=== PATIENT | male | born 1945 | race Caucasian/White ===

== ENCOUNTER 2019-05-05 00:31 | Emergency (ER) | payer MEDICARE, BC, SELFPAY ==
[2019-05-05 00:38] VITALS: BP 147/82; PULSE 78; RESP 18; TEMP 37; O2SAT 98
--- NOTE | 2019-05-05 00:54 | ED.GENADUL_ITS ---
Discharge Plan Disposition Patient Disposition: HOME Condition: Good Discharge Details Chief Complaint: GenMedical Clinical Impression: Encounter for medical screening examination Primary Care Provider: Shawn Blanton ED Provider: Pérez Mejia Discharge Instructions Additional Instructions: At this time your medications are well dosed and appropriate. There appears to be no incorrect medication difference between your old amlodipine and your new amlodipine. If you have any questions or concerns at all do not hesitate to contact me in the emergency department at [phone]. If you notice any worsening of your symptoms, or any new symptoms such as vomiting, diarrhea, fever, chills, shortness of breath, chest pain, numbness, weakness, or fainting , please return immediately to the emergency department for reevaluation. Please follow up with your primary care provider as soon as possible for reassessment and reevaluation. As always, it was a pleasure participating in your medical care today. Referrals: Shawn Blanton [Primary Care Provider] - Medical Decision Making 74-year-old male with a past medical history of hypertension, high cholesterol, previous myocardial infarction presents today for evaluation. Patient states that he woke up this evening and felt the creepy crawly's over his skin. He stated that he often gets like this when the detergent is changed, and his recently did just change the detergent. He denies any rash, chest pain, shortness of breath, fever, chills, numbness, tingling, weakness, vomiting, diarrhea, headache, chest tightness, shortness of breath. He states that his symptoms are completely inconsistent with his previous myocardial infarction. He denies any exertional discomfort or complaints. He states as soon as he woke up and got out of his blankets he felt better. However he states that he is a man that evaluates all of my medications, at which point he went to check his home prescribed and newly filled bottles of amlodipine. He noticed that the last pill that he saved from his old bottle and the current pill that he is from the new bottle were the same in color, but had different writing on them. He thought that this may be a potential problem, and presented today to the ER for further evaluation of this. He has no other complaints at this time and is otherwise asymptomatic. Physical exam is unremarkable, both pills were evaluated by myself, and confirmation with the properties shows that although the pill labeling is different, their sizes are both equivalent, and their contents is identical. Additionally I did get our pharmacy scale out, and weighed both pills and compared 1 to the other, and their weights are identical. At this time I feel the patient symptoms may likely have been from his 's detergent change. With no other evidence of life-threatening etiology or abnormality, no evidence of cardiac problems, respiratory problems, or allergic problems, I feel he can be safely discharged home with reassurance. Discussed red flags which to return. I have extensively reviewed the treatment plan and discharge instructions with the patient and their family. I have addressed all patient concerns at this time. The patient and family was made aware of what symptoms to monitor for that would warrant a return to the emergency department. Discussed the plan with the patient and family, they demonstrate verbal understanding and agreement with our assessment and plan at this time. HPI General Date/Time Provider Initiated Documentation: 05/05/19 00:37 . HPI Narrative: 74-year-old male with a past medical history of hypertension, high cholesterol, previous myocardial infarction presents today for evaluation. Patient states that he woke up this evening and felt the creepy crawly's over his skin. He stated that he often gets like this when the detergent is changed, and his recently did just change the detergent. He denies any rash, chest pain, shortness of breath, fever, chills, numbness, tingling, weakness, vomiting, diarrhea, headache, chest tightness, shortness of breath. He states that his symptoms are completely inconsistent with his previous myocardial infarction. He denies any exertional discomfort or complaints. He states as so on as he woke up and got out of his blankets he felt better. However he states that he is a man that evaluates all of my medications, at which point he went to check his home prescribed and newly filled bottles of amlodipine. He noticed that the last pill that he saved from his old bottle and the current pill that he is from the new bottle were the same in color, but had different writing on t hem. He thought that this may be a potential problem, and presented today to the ER for further evaluation of this. He has no other complaints at this time and is otherwise asymptomatic. General Stated Complaint: GenMedical ESME: 4 Review of Systems All systems reviewed & are unremarkable except as noted in HPI and below PFSH Social History Smoking/Tobacco Use Status: Never Alcohol Intake: never Drug use: Never Substance use type: does not use Do you feel safe at home: Yes Do you feel safe in your relationship?: Yes Exam Narrative Exam Narrative: 1.Const: Well-nourished, Well-developed, appearing stated age 2.Eyes: PERRL, no conjunctival injection, and symmetrical lids. 3.ENT: Atraumatic external nose and ears. Moist MM. Neck: Symmetric, trachea midline, No thyromegaly. 4.CVS: +S1/S2, No murmurs or gallops. Peripheral pulses 2+ and equal in all extremities. Brisk capillary refill in all extremities. 5.RESP: Unlabored respiratory effort. Clear to auscultation bilaterally. No wheezes rales or rhonchi 6.GI: Soft, Nontender/Nondistended, No hepatosplenomegaly. No guarding or rebound. 7.MSK: Normocephalic/Atraumatic, Extremities w/o deformity or ttp No cyanosis or clubbing, Normal movement of all extremities 8.Skin: Warm, Dry. No rashes or lesions. Negative Nikolsky sign. No large vesi cles or bulla. No palpable purpura. No oral lesions. No mucosal lesions. No evidence of severe cellulitis. No evidence of vaccine preventable rash. No evidence of redness, rash, or signs of hives. 9.Neuro: drug safety assistant II-XII grossly intact. Sensation grossly intact, no focal neurologic deficits. 10.Psych: (AAO) x3. Appropriate mood and affect Course Vital Signs Vital signs: Vital Signs Temperature 37.0 C 05/05/19 00:38 Pulse 78 05/05/19 00:38 Respiratory Rate 18 05/05/19 00:38 Blood Pressure 147/82 H 05/05/19 00:38 Pulse Oximetry 98 05/05/19 00:38 Temperature 37.0 C 05/05/19 00:38 Temperature Source Skin 05/05/19 00:38 Pulse 78 05/05/19 00:38 Respiratory Rate 18 05/05/19 00:38 Respiratory Effort Non-Labored 05/05/19 00:46 Blood Pressure 147/82 H 05/05/19 00:38 Blood Pressure Position Sitting 05/05/19 00:38 Pulse Oximetry 98 05/05/19 00:38 Oxygen Delivery Method Room Air 05/05/19 00:38 Oxygen Flow Rate 0 05/05/19 00:38 Pain Level 0 05/05/19 00:38
== END 2019-05-05 01:05 | disposition home or self-care (01) ==
PROVIDERS: Emergency Provider Student in an Organized Health Care Education/Training Program; PCP Internal Medicine
DX: R20.8 Other disturbances of skin sensation (principal); I10 Essential (primary) hypertension
CPT/HCPCS: 99281; 99282

== ENCOUNTER 2020-09-12 00:33 | Emergency (ER) | payer MEDICARE, BC, SELFPAY ==
--- NOTE | 2020-09-12 00:30 | RT.EKG_ITS ---
APPROVED REPORT Exam: Resting ECG Reason for Exam: CARDIAC HX Patient Location: E HR:60 bpm ECG Measurements Heart Rate 60 AXIS NJ 163 P 69 QRSd 103 QRS 10 QT 456 T 25 QTc 455 Conclusion Sinus rhythm, intervals stable, no significant ST elevation or depression. No evidence of STEMI
[2020-09-12 00:38] VITALS: BP 140/77; PULSE 66; RESP 18; TEMP 36.6; O2SAT 99
--- NOTE | 2020-09-12 00:47 | W.ED.GENAD ---
Discharge Plan Disposition Patient Disposition: HOME Condition: Good Discharge Details Clinical Impression: Encounter for medical assessment, Facial tingling Primary Care Provider: Shawn Blanton ED Provider: Pérez Mejia Discharge Instructions Instructions: Paresthesia (ED) Additional Instructions: At this time your exam is inconsistent with a stroke or heart attack. The transient tingling that you experienced may have been from hunger, mild dehydration, or low vitamin D levels. At this time with no signs of stroke or heart attack I do feel it is safe for you to go home. If you notice any worsening of your symptoms, or any new symptoms such as vomiting, diarrhea, fever, chills, shortness of breath, chest pain, numbness, weakness, or fainting , please return immediately to the emergency department for reevaluation. Please follow up with your primary care provider as soon as possible for reassessment and reevaluation. As always, it was a pleasure participating in your medical care today. Referrals: Shawn Blanton [Primary Care Provider] - Medical Decision Making This is a pleasant 75-year-old male with a past medical history of hypertension, previous myocardial infarction in the distant past who presents today for evaluation of a brief episode of left facial tingling. Patient states that his is currently on vacation out to the [place], and he has been alone for the last few days. He notes that he is hypervigilant during these episodes. Earlier this evening he states he had a brief episode of tingling in the left side of his face. He did not notice any other associated symptoms of any other systemic tingling, weakness, headache, chest pain, chest tightness, shortness of breath, syncope, or lightheadedness. He states that he ate some food and this notably improved the symptoms. This evening at about midnight he felt that given his previous history of heart attack it was important to get checked out to make sure that this was not a cardiac equivalent. Currently his symptoms have nearly completely resolved, and he otherwise feels well. He denies any changes to his medications. He denies any exertional dyspnea, exertional chest pain, or other symptoms. No other complaints at this time. No other modifying factors. Physical exam demonstrates no abnormalities. No tender temporal artery. No signs of Jon's palsy. Sensation is intact bilaterally, including light touch. Detailed neurologic exam shows no evidence of neurologic deficit or signs concerning for stroke. EKG was ordered and shows no evidence of significant abnormality, STEMI or heart attack. No hyperacute T waves. Symptoms at this time are clinically inconsistent with stroke or myocardial infarction. As his symptoms resolved with food, I feel that a neurologic etiology is unlikely after exam and clinical assessment. Recommend good hydration at home, continuation of his multivitamin and close follow-up with PCP. Discussed red flags which to return. I have extensively reviewed the treatment plan and discharge instructions with the patient. I have addressed all patient concerns at this time. The patient was made aware of what symptoms to monitor for that would warrant a return to the emergency department. Discussed the plan with the patient, they demonstrate verbal understanding and agreement with our assessment and plan at this time. The documentation in this chart was dictated using [employer] dictation software. Please excuse any dictation errors. EKG 00: 48 Sinus rhythm, intervals stable, no significant ST elevation or depression. No evidence of STEMI. HPI General Date/Time Provider Initiated Documentation: 09/12/20 00:34. HPI Narrative: This is a pleasant 75-year-old male with a past medical history of hypertension, previous myocardial infarction in the distant past who presents today for evaluation of a brief episode of left facial tingling. Patient states that his is currently on vacation out to the [place], and he has been alone for the last few days. He notes that he is hypervigilant during these episodes. Earlier this evening he states he had a brief episode of tingling in the left side of his face. He did not notice any other associated symptoms of any other systemic tingling, weakness, headache, chest pain, chest tightness, shortness of breath, syncope, or lightheadedness. He states that he ate some food and this notably improved the symptoms. This evening at about midnight he felt that given his previous history of heart attack it was important to get checked out to make sure that this was not a cardiac equivalent. Currently his symptoms have nearly completely resolved, and he otherwise feels well. He denies any changes to his medications. He denies any exertional dyspnea, exertional chest pain, or other symptoms. No other complaints at this time. No other modifying factors. General Stated Complaint: GenMedical ESME: 3 Review of Systems All systems reviewed & are unremarkable except as noted in HPI and below [facility] Social History (Reviewed 09/12/20 @ 01:31 by LAURENCE Lozano Smoking/Tobacco Use Status: Never Smoking risk assessment performed?: Yes Alcohol Intake: never Drug use: Never Substance use type: does not use Do you feel safe at home: Yes Do you feel safe in your relationship?: Yes Exam Narrative Exam Narrative: 1.Const: Well-nourished, Well-developed, appearing stated age 2.Eyes: PERRL, no conjunctival injection, and symmetrical lids. 3.ENT: Atraumatic external nose and ears. Moist MM. Neck: Symmetric, trachea midline, No thyromegaly. No palpable tender temporal artery. 4.CVS: +S1/S2, No murmurs or gallops. Peripheral pulses 2+ and equal in all extremities. Brisk capillary refill in all extremities. No carotid bruits 5.RESP: Unlabored respiratory effort. Clear to auscultation bilaterally. No wheezes rales or rhonchi 6.GI: Soft, Nontender/Nondistended, No hepatosplenomegaly. No guarding or rebound. 7.MSK: Normocephalic/Atraumatic, Extremities w/o deformity or ttp No cyanosis or clubbing, Normal movement of all extremities 8.Skin: Warm, Dry. No rashes or lesions. 9.Neuro: medical billing assistant II-XII grossly intact. Sensation grossly intact, no focal neurologic deficits. No facial asymmetry, tongue is midline. All 6 cardinal planes of vision are fully intact. No evidence of rotatory or vertical nystagmus. The patient demonstrated a normal oofatu-snws-xylctm, good dexterity. There was no evidence of dysdiadochokinesia. Patient was able to ambulate without difficulty. There was no wide-based gait. Romberg testing was normal. Ixjn-cf-hich testing was normal. Sensation was intact bilaterally as well as muscle strength bilaterally for all extremities. Patient was able to verbalize butter cup with no slurring, or miss pronunciation. 10.Psych: (AAO) x3. Appropriate mood and affect Course Vital Signs Vital signs: Vital Signs Temperature 36.6 C 09/12/20 00:38 Pulse 66 09/12/20 00:38 Respiratory Rate 18 09/12/20 00:38 Blood Pressure 140/77 09/12/20 00:38 Pulse Oximetry 99 09/12/20 00:38 Temperature 36.6 C 05/12/21 00:38 Temperature Source Temporal Artery Scan 09/12/20 00:38 Pulse 66 09/12/20 00:38 Respiratory Rate 18 09/12/20 00:38 Blood Pressure 140/77 09/12/20 00:38 Blood Pressure Position Sitting 09/12/20 00:38 Pulse Oximetry 99 09/12/20 00:38 Oxygen Delivery Method Room Air 09/12/20 00:38 Oxygen Flow Rate 0 09/12/20 00:38
[2020-09-12 00:52] VITALS: BP 140/77; PULSE 66; RESP 18; TEMP 36.6; O2SAT 99
== END 2020-09-12 00:58 | disposition home or self-care (01) ==
PROVIDERS: Emergency Provider Student in an Organized Health Care Education/Training Program; PCP Internal Medicine
DX: R20.2 Paresthesia of skin (principal)
CPT/HCPCS: 93005; 99283; 93010; 99282

== ENCOUNTER 2022-02-15 15:55 | Inpatient (IN) | payer MEDICARE, BC, SELFPAY ==
--- NOTE | 2022-02-15 15:45 | RT.EKG_ITS ---
APPROVED REPORT Exam: Resting ECG Reason for Exam: chest pain Patient Location: E HR:79 bpm ECG Measurements Heart Rate 79 AXIS NM 157 P 59 QRSd 97 QRS 24 QT 387 T 57 QTc 445 Conclusion Sinus rhythm...normal P axis, V-rate 60- 99 Probable left atrial enlargement...P >50mS, <-0.10mV V1 sinus rhythm, normal axis, normal intervals, non ischemic
[2022-02-15 16:00] VITALS: PULSE 80; RESP 20; TEMP 36.8; O2SAT 96
--- NOTE | 2022-02-15 16:15 | DI.RAD_ITS ---
Exam(s) XR PORTABLE CHEST AP EXAM: XR PORTABLE CHEST AP CLINICAL HISTORY: chest pain TECHNIQUE: 2D digital imaging was performed of the chest. One image was obtained. An AP view was ob tained. COMPARISON: No exams were available for comparison FINDINGS: MEDIASTINUM: Normal. HEART: Normal. PULMONARY VASCULATURE: Normal. LUNGS: Clear. PLEURAL SPACE: No pleural effusion or pneumothorax. BONE:Within normal limits for the patient's age. OTHER FINDINGS:Normal. IMPRESSION: No acute pulmonary findings. DATA REPOSITORY: RADIATION DOSE DELIVERED:
[2022-02-15 16:42] LABS: Abs Immature Grans 0.04 10^3/uL (0.0-0.06); Absolute Basophil Count 0.05 10^3/uL (0.0-0.2); Absolute Eosinophil Count 0.11 10^3/uL (0.0-0.7); Absolute Lymphocyte Count 1.54 10^3/uL (1.2-3.4); Absolute Neutrophil Count 10.31 10^3/uL (1.2-6.7); Basophils % 0.4; Eosinophils % 0.8; HCT 37.8 % (40.0-50.0); HGB 12.7 g/dL (13.5-17.5); Immature Grans % 0.3; Lymphocytes % 11.7; MCH 31.4 pg (27.0-33.0); MCHC 33.6 % (32.0-36.0); MCV 94 fL (80-95); MPV 9.8 fL (8.0-11.0); Monocytes % 8.4; Neutrophils % 78.4; Platelet Count 274 10^3/uL (130-400); RBC 4.04 10^6/uL (4.36-5.78); RDW 12.1 % (11.8-14.1); RDW-SD 42.1 fL; WBC 13.15 10^3/uL (4.4-10.8)
[2022-02-15] MEDS: Acetaminophen 325 MG TAB 650 MG PO (16:56)
[2022-02-15 17:08] LABS: ALT 27 U/L (16-63); AST 27 U/L (15-37); Albumin 4.2 g/dL (3.4-5.0); Alkaline Phosphatase 117 U/L (46-116); Anion Gap 7.1 mmol/L (3-11); BUN 27 mg/dL (7-18); Bilirubin, Total 0.5 mg/dL (0.2-1.0); CO2 29.9 mmol/L (21.0-32.0); CREATININE 1.3 mg/dL (0.70-1.30); Calcium 8.9 mg/dL (8.5-10.1); Chloride 103 mmol/L (98-107); Estimated GFR 57.29 (mL/min/1.73m2); Glucose 182 mg/dL (74-106); Lipase 97 U/L (73-393); Potassium 4.6 mmol/L (3.5-5.1); Sodium 140 mmol/L (136-145); Total Protein 7.6 g/dL (6.4-8.2)
[2022-02-15 17:11] LABS: D-Dimer 437 ng/mlFEU (<500)
[2022-02-15 17:25] VITALS: TEMP 37.9
[2022-02-15 17:28] LABS: Troponin I < 50 ng/L (<or=60)
--- NOTE | 2022-02-15 17:36 | DI.VRAD_ITS ---
PROCEDURE INFORMATION: Exam: XR Chest Exam date and time: 02/15/2022 4:44 PM Age: 76 years old Clinical indication: Other: Chest pain TECHNIQUE: Imaging protocol: Radiologic exam of the chest. Views: 1 view. COMPARISON: No relevant prior studies available. FINDINGS: Lungs: Unremarkable. No consolidation. Pleural spaces: Unremarkable. No pleural effusion. No pneumothorax. Heart/Mediastinum: Unremarkable. No cardiomegaly. 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 IMPRESSION: No acute findings Dictated and Authenticated by: Yazmin Gil MD. Ordering:ELIZA Guallpa MD
--- NOTE | 2022-02-15 17:45 | DI.CT_ITS ---
Exam(s) CT CHEST/ABD/PEL W EXAM: CT CHEST/ABD/PEL W CLINICAL HISTORY: RIGHT chest and upper quad pain, fever TECHNIQUE: Imaging Protocol: Axial computed tomography images with coronal and sagittal reformatted images were created and reviewed CONTRAST MATERIAL: Intravenous: Omnipaque 350 contrast volume:100 mL Oral: No COMPARISON: CR,XR XR PORTABLE CHEST AP from 02/15/2022 FINDINGS: CHEST: Tracheobronchial tree: Patent where visualized. Pulmonary parenchyma: No consolidation or dominant measurable mass. No architectural distortion. Visualized thyroid gland: Unremarkable. Mediastinum and Angelique: No dominant adenopathy or fluid collection. The esophagus is unremarkable. Pleura: No effusion or pneumothorax. Heart: The heart is not dilated. Moderate coronary artery disease is present. No pericardial effusio n. Pulmonary arteries: Pulmonary arteries are inadequately opacified for evaluation of pulmonary emboli. No large central pulmonary embolus is seen. Aorta: Thoracic aorta non-dilated. Lymph nodes: Within normal limits. Soft tissues: Unremarkable. Bones:Within normal limits for the patient's age. ABDOMEN: Liver: Normal density. Multiple hepatic cysts. No suspicious hepatic masses. Portal, Superior Mesenteric, and Splenic Veins: Unremarkable. Gallbladder and Biliary Tract: Cholelithiasis. The common duct measures up to 9 mm. No choledocholi thiasis is identified. Pancreas: Normal density, no abnormal calcifications or inflammatory process. Spleen: Normal. Adrenals: No masses seen. Kidneys: Normal size, contour and axis. No radiodense stones or obstructive uropathy. There are bilat eral renal cysts. The largest is in the left kidney and measures 3.8 x 2.8 cm. There is a 1.4 x 1 c m hypodense cortical lesion in the inferior pole of the right kidney. It does not meet the criteria for simple cyst. Abdominal Aorta: Abdominal portion non-dilated. Atherosclerosis is present. Bowel: No obstruction or bowel wall thickening. Evidence of appendicitis. There is colonic diverticu losis, but no evidence of acute diverticulitis. Peritoneal Cavity: No ascites, collection or mesenteric inflammatory response. No free air. Lymph Nodes: Within normal limits. Bones: Within normal limits for the patient's age. Soft Tissues: There is a left inguinal hernia containing a short segment of unremarkable sigmoid colo n. There is a right inguinal hernia containing a small segment of small bowel. No evidence of bowel incarceration or obstruction. PELVIS: Bladder: Symmetric distention, no gross wall thickening. Reproductive Organs: Unremarkable as visualized. Lymph Nodes: Within normal limits. Bones: Within normal limits. IMPRESSION: 1. Area of decreased attenuation in the right kidney. Differential considerations include right pyel onephritis or right renal mass. Please correlate clinically. An MRI of the right kidney may be obta ined for further evaluation. 2. Cholelithiasis. No CT evidence to suggest acute cholecystitis. Mild dilatation of the common bubba t without evidence of choledocholithiasis. 3. Bilateral bowel containing inguinal hernias. No evidence of obstruction. 4. No acute pulmonary process. RADIATION DOSE DELIVERED: 787.2mGy.cm Total DLP DATA REPOSITORY: All CT scans at this facility are submitted to the National Radiology Data Registry (NRDR) Dose Index Registry (DIR) with the [employer] (ACR). RADIATION OPTIMIZATION: All CT scans at this facility use at least one of these dose optimization te chniques: automated exposure control; mA and/or kV adjustment per patient size (includes targeted exa ms where dose is matched to clinical indication); or iterative reconstruction.
[2022-02-15 18:00] VITALS: TEMP 39.3
[2022-02-15 18:25] LABS: Lactate 0.7 mmol/L (0.6-1.4)
[2022-02-15 18:44] LABS: COVID-19 PCR Negative (Negative); Influenza A PCR Negative (Negative); Influenza B PCR Negative (Negative); RSV PCR Negative (Negative)
[2022-02-15 18:57] LABS: Bilirubin Negative (Negative); Blood Negative (Negative); Clarity Clear (Clear); Glucose Negative (Negative); Ketones Negative (Negative); Leukocyte Esterase Negative (Negative); Nitrite Negative (Negative); Urobilinogen 0.2 EU/dL (Up TO 0.2)
[2022-02-15 19:05] LABS: Bacteria Negative HPF (Negative); Epithelial Cells Negative HPF (Negative); RBC 0-2 HPF (0-2); WBC Negative HPF (0-5)
[2022-02-15 19:06] LABS: C & S Indicated? No; Crystals Negative HPF (Negative); Mucus Negative (Negative)
--- NOTE | 2022-02-15 19:15 | RT.EKG_ITS ---
APPROVED REPORT Exam: Resting ECG Reason for Exam: chest pain Patient Location: E HR:71 bpm ECG Measurements Heart Rate 71 AXIS MS 152 P 40 QRSd 97 QRS 2 QT 411 T 32 QTc 448 Conclusion Sinus rhythm...normal P axis, V-rate 60- 99 Probable left atrial enlargement...P >50mS, <-0.10mV V1 Physiian: no stemi
[2022-02-15] MEDS: Normal Saline 500 ML 1000 ML IV (19:20)
[2022-02-15] MEDS: Normal Saline Flush 10 ML SYR IVP (19:30)
[2022-02-15] MEDS: Omnipaque 350 MG/ML 100 ML BTL IJ (19:31)
[2022-02-15 19:58] LABS: Troponin I < 50 ng/L (<or=60)
--- NOTE | 2022-02-15 20:44 | DI.VRAD_ITS ---
PROCEDURE INFORMATION: Exam: CT Chest With Contrast; Diagnostic Exam date and time: 02/15/2022 7:42 PM Age: 76 years old Clinical indication: Fever and other: Right chest \T\ upper quad pain TECHNIQUE: Imaging protocol: Diagnostic computed tomography of the chest with contrast. 3D rendering (Not supervised by radiologist): MIP and/or 3D reconstructed images were created by the technologist. COMPARISON: XR PORTABLE CHEST AP 02/15/2022 4:44 PM FINDINGS: Lungs: No consolidation. No ground-glass opacity. Pleuroparenchymal scar noted in the right middle lobe. No endobronchial mucus. Pleural spaces: Unremarkable. No pneumothorax. No pleural effusion. Heart: No cardiomegaly. No pericardial effusion. Mild coronary artery calcifications. Lymph nodes: Unremarkable. No enlarged lymph nodes. Vasculature: Unremarkable. No aortic aneurysm. Bones/joints: No compression fractures. Bulky anterior osteophytes noted at T7-T8. Intact sternum. Unremarkable ribs. Soft tissues: Unremarkable. IMPRESSION: No significant pneumonia. No acute abnormalities. PROCEDURE INFORMATION: Exam: CT Abdomen And Pelvis With Contrast Exam date and time: 02/15/2022 7:42 PM Age: 76 years old Clinical indication: Fever and other: Right chest \T\ upper quad pain TECHNIQUE: Imaging protocol: Computed tomography of the abdomen and pelvis with contrast. 3D rendering (Not supervised by radiologist): MIP and/or 3D reconstructed images were created by the technologist. COMPARISON: XR PORTABLE CHEST AP 02/15/2022 4:44 PM FINDINGS: Lungs: Lung bases are clear. Liver: Liver parenchyma is homogeneous. Multiple small cysts are noted in the liver. Gallbladder and bile ducts: A calcified stone is present at the gallbladder neck, 1.7 cm diameter. No inflammatory changes observed around the gallbladder. No biliary ductal dilatation. Pancreas: Unremarkable pancreas. No inflammatory change or fluid collection. Spleen: Normal. No splenomegaly. Adrenal glands: Normal. No mass. Kidneys and ureters: Multiple cysts are present, up to 3.5 cm diameter on the left. Heterogeneous enhancement of the right kidney is noted. Mild right hydronephrosis. Nondilated ureters. Stomach and bowel: Collapsed stomach. Are nondilated small bowel. Negative for inflammatory changes around the colon. Moderate proximal stool. Moderate sigmoid colon diverticulosis. Appendix: No evidence of appendicitis. Intraperitoneal space: Unremarkable. No free air. No significant fluid collection. Vasculature: Mild vascular calcifications. Negative for abdominal aortic aneurysm. Lymph nodes: Unremarkable. No enlarged lymph nodes. Urinary bladder: No abnormalities. Thin starkey. Reproductive: Right scrotal hydrocele partially visualized. Bones/joints: No compression fractures. Multilevel degenerative disc disease and facet arthropathy noted. Severe neural foraminal narrowing noted at the left L4-L5 level. Narrowing and osteophyte formation noted in both hips. Soft tissues: Mild inguinal hernias noted bilaterally. The right inguinal hernia contains loops of small bowel, and the left inguinal hernia contains a segment of the colon. No associated bowel obstruction. No inflammatory changes. IMPRESSION: 1. Right pyelonephritis questioned. Clinical correlation needed. 2. Bilateral inguinal hernias containing bowel. No obstruction. 3. Cholelithiasis, without cholecystitis. Dictated and Authenticated by: Hector Beltrán MD. Ordering:ELIZA Guallpa MD
[2022-02-15] MEDS: cefTRIAXone 2 GM/50 ML BAG IVPB (22:07)
--- NOTE | 2022-02-15 23:35 | W.ED.GENAD ---
Discharge Plan Disposition Patient Disposition: [facility] INPATIENT Discharge Details Clinical Impression: Pyelonephritis, acute, Atypical chest pain Admit Date/Time: 02/16/22 13:40 Admit Provider: Shawn Newell Attending Provider: Shawn Newell Primary Care Provider: Shawn Blanton ED Provider: Saloni Fernandez Discharge Data Discharge Date/Time-TO BE ENTERED AT DEPARTURE: 02/16/22 13:13 Medical Decision Making Patient is alert and oriented, very pleasant Developed rigors and repeat temp was found to be at 102.8 at approximately 1800. He therefore had blood cultures and lactate and CTs of the chest abdomen and pelvis were ordered Chest x-ray does not show evidence of acute abnormality, curiously his right kidney is found to be enhancing and he has mild right hydro There is no obvious stone in his urinalysis actually clear He has leukocytosis Given the mild hydronephrosis with pyelonephritis, he will need admission for observation He was given ceftriaxone 2 g IV He has been stable throughout this encounter Dr. Oleary will admit patient to the hospitalist service Medical Records Medical records reviewed: Yes I reviewed the patient's medical records. Lab Data Lab results reviewed: Yes I reviewed the patient's lab results. HPI General Date/Time Provider Initiated Documentation: 02/15/22 16:12. HPI Narrative: This 76-year-old male presents with report of right chest and thorax pain. He states this pain started approximately 1:00 today. Denies any fever or chills. Denies any nausea or vomiting. Denies any known reprieve pain factors. Denies any abdominal discomfort. Denies any urinary complaints. Or have any known history of coronary artery disease but denies any left-sided pain and states this pain is any consistent with his prior episodes. Denies any diaphoresis. Was at rest when the pain began. Denies pleuritic component. Denies any falls or injuries. Denies any calf pain or swelling, recent flights, surgeries, long travel. Related Data Home Medications Medication Instructions Recorded Confirmed amlodipine 5 mg-benazepril 20 mg 1 cap PO QPM 02/15/22 02/16/22 capsule aspirin 81 mg tablet 81 mg PO DAILY 02/15/22 02/15/22 atorvastatin 40 mg tablet 40 mg PO QPM 02/15/22 02/16/22 metoprolol succinate 25 mg 25 mg PO QPM 02/15/22 02/16/22 tablet,extended release 24 hr pawgttekvdxe-hpvvuwth-mrnhx acid 1 cap PO DAILY 02/15/22 02/15/22 400 mcg-vitamin K 40 mcg capsule nitroglycerin 0.4 mg sublingual 0.4 mg sublingual PER PROTOCOL PRN 02/15/22 02/15/22 tablet Chest Pain General Stated Complaint: Chest Pain ESME: 2 Review of Systems All systems reviewed & are unremarkable except as noted in HPI and below PFSH All Active Problems (Updated 02/16/22 @ 17:18 by RICA Dobbs) Cholelithiasis (Acute) Deafness middle ear (Acute) CAD (coronary artery disease), [place] coronary artery (Chronic) Atypical chest pain (Acute) Pyelonephritis, acute (Acute) Medical History (Updated 02/16/22 @ 17:18 by RICA Dobbs) Cleft lip and cleft palate Encounter for medical assessment Facial tingling Social History Smoking/Tobacco Use Status: Never Smoking risk assessment performed?: Yes Alcohol Intake: never Drug use: Never Substance use type: does not use Do you feel safe at home: Yes Do you feel safe in your relationship?: Yes Exam Const General: cooperative, comfortable and no acute distress Eyes Pupils: PERRL Resp Effort & Inspection: normal respiratory effort Auscultation: clear to auscultation bilaterally Cardio Rate: regular rate Rhythm: regular rhythm GI Inspection: normal to inspection Skin General skin exam: no rashes or lesions noted Neuro General: patient alert and patient oriented x3 Course Vital Signs Vital signs: Vital Signs Temperature 36.8 C 02/15/22 16:00 Pulse 80 02/15/22 16:00 Respiratory Rate 20 02/15/22 16:00 Pulse Oximetry 96 02/15/22 16:00 Temperature 37.9 C H 02/15/22 17:25 Temperature Source Temporal Artery Scan 02/15/22 17:25 Pulse 80 02/15/22 16:00 Respiratory Rate 20 02/15/22 16:00 Respiratory Effort Non-Labored 02/15/22 16:13 Respiratory Depth Normal 02/15/22 16:13 Respiratory Pattern Normal 02/15/22 16:13 Blood Pressure Position Sitting 02/15/22 16:00 Pulse Oximetry 96 02/15/22 16:00 Oxygen Delivery Method Room Air 02/15/22 16:00 Oxygen Flow Rate 0 02/15/22 16:00 Pain Level 3 02/15/22 16:56 Comment 02/15/22 17:25 Lab/Test Results Lab/Test Results: 02/15/22 21:26 Urine - Clean Catch Urine Culture - Pending 02/15/22 18:30 Blood Blood Culture - Pending 02/15/22 18:30 Blood Blood Culture - Pending Laboratory Tests Range/Units 02/15/22 02/15/22 02/15/22 16:09 16:09 16:09 WBC (4.4-10.8) 10^3/uL 13.15 H RBC (4.36-5.78) 10^6/uL 4.04 L Hgb (13.5-17.5) g/dL 12.7 L Hct (40.0-50.0) % 37.8 L MCV (80-95) fL 94 MCH (27.0-33.0) pg 31.4 MCHC (32.0-36.0) % 33.6 RDW (11.8-14.1) % 12.1 Plt Count (130-400) 10^3/uL 274 MPV (8.0-11.0) fL 9.8 Immature Gran % 0.3 Neutrophils % 78.4 Lymphocytes % 11.7 Monocytes % 8.4 Eosinophils % 0.8 Basophils % 0.4 Nucleated RBC % (0.0-0.3) % 0.0 Absolute Neutrophils (1.2-6.7) 10^3/uL 10.31 H Absolute Lymphocytes (1.2-3.4) 10^3/uL 1.54 Absolute Monocytes (0.1-0.8) 10^3/uL 1.10 H Absolute Eosinophils (0.0-0.7) 10^3/uL 0.11 Absolute Basophils (0.0-0.2) 10^3/uL 0.05 D-Dimer (<500) ng/mlFEU 437 VBG Lactate (0.6-1.4) mmol/L Sodium (136-145) mmol/L 140 Potassium (3.5-5.1) mmol/L 4.6 Chloride (98-107) mmol/L 103 Carbon Dioxide (21.0-32.0) mmol/L 29.9 Anion Gap (3-11) mmol/L 7.1 BUN (7-18) mg/dL 27 H Creatinine (0.70-1.30) mg/dL 1.3 Est GFR (CKD-EPI 2020) (mL/min/1.73m2) 57.29 Glucose (74-106) mg/dL 182 H Calcium (8.5-10.1) mg/dL 8.9 Total Bilirubin (0.2-1.0) mg/dL 0.5 AST (15-37) U/L 27 ALT (16-63) U/L 27 Alkaline Phosphatase (46-116) U/L 117 H Troponin I (<or=60) ng/L Total Protein (6.4-8.2) g/dL 7.6 Albumin (3.4-5.0) g/dL 4.2 Lipase (73-393) U/L 97 Urine Color (Yellow) Urine Clarity (Clear) Urine pH (5-8) Ur Specific [place] (1.005-1.025) Urine Protein (Negative) mg/dL Urine Ketones (Negative) mg/dL Urine Blood (Negative) Urine Nitrite (Negative) Urine Bilirubin (Negative) Urine Urobilinogen (Up TO 0.2) EU/dL Ur Leukocyte Esterase (Negative) Urine RBC (0-2) HPF Urine WBC (0-5) HPF Ur Epithelial Cells (Negative) HPF Urine Crystals (Negative) HPF Urine Bacteria (Negative) HPF Urine Mucus (Negative) Ur Culture Indicated? Urine Glucose (Negative) mg/dL COVID-19 Source SARS-CoV-2 (PCR) (Negative) Influenza Type A (PCR) (Negative) Influenza Type B (PCR) (Negative) RSV (PCR) (Negative) Range/Units 02/15/22 02/15/22 02/15/22 17:07 17:25 18:12 WBC (4.4-10.8) 10^3/uL RBC (4.36-5.78) 10^6/uL Hgb (13.5-17.5) g/dL Hct (40.0-50.0) % MCV (80-95) fL MCH (27.0-33.0) pg MCHC (32.0-36.0) % RDW (11.8-14.1) % Plt Count (130-400) 10^3/uL MPV (8.0-11.0) fL Immature Gran % Neutrophils % Lymphocytes % Monocytes % Eosinophils % Basophils % Nucleated RBC % (0.0-0.3) % Absolute Neutrophils (1.2-6.7) 10^3/uL Absolute Lymphocytes (1.2-3.4) 10^3/uL Absolute Monocytes (0.1-0.8) 10^3/uL Absolute Eosinophils (0.0-0.7) 10^3/uL Absolute Basophils (0.0-0.2) 10^3/uL D-Dimer (<500) ng/mlFEU VBG Lactate (0.6-1.4) mmol/L 0.7 Sodium (136-145) mmol/L Potassium (3.5-5.1) mmol/L Chloride (98-107) mmol/L Carbon Dioxide (21.0-32.0) mmol/L Anion Gap (3-11) mmol/L BUN (7-18) mg/dL Creatinine (0.70-1.30) mg/dL Est GFR (CKD-EPI 2020) (mL/min/1.73m2) Glucose (74-106) mg/dL Calcium (8.5-10.1) mg/dL Total Bilirubin (0.2-1.0) mg/dL AST (15-37) U/L ALT (16-63) U/L Alkaline Phosphatase (46-116) U/L Troponin I (<or=60) ng/L < 50 Total Protein (6.4-8.2) g/dL Albumin (3.4-5.0) g/dL Lipase (73-393) U/L Urine Color (Yellow) Urine Clarity (Clear) Urine pH (5-8) Ur Specific [place] (1.005-1.025) Urine Protein (Negative) mg/dL Urine Ketones (Negative) mg/dL Urine Blood (Negative) Urine Nitrite (Negative) Urine Bilirubin (Negative) Urine Urobilinogen (Up TO 0.2) EU/dL Ur Leukocyte Esterase (Negative) Urine RBC (0-2) HPF Urine WBC (0-5) HPF Ur Epithelial Cells (Negative) HPF Urine Crystals (Negative) HPF Urine Bacteria (Negative) HPF Urine Mucus (Negative) Ur Culture Indicated? Urine Glucose (Negative) mg/dL COVID-19 Source Not Applicable SARS-CoV-2 (PCR) (Negative) Negative Influenza Type A (PCR) (Negative) Negative Influenza Type B (PCR) (Negative) Negative RSV (PCR) (Negative) Negative Range/Units 02/15/22 02/15/22 18:50 19:38 WBC (4.4-10.8) 10^3/uL RBC (4.36-5.78) 10^6/uL Hgb (13.5-17.5) g/dL Hct (40.0-50.0) % MCV (80-95) fL MCH (27.0-33.0) pg MCHC (32.0-36.0) % RDW (11.8-14.1) % Plt Count (130-400) 10^3/uL MPV (8.0-11.0) fL Immature Gran % Neutrophils % Lymphocytes % Monocytes % Eosinophils % Basophils % Nucleated RBC % (0.0-0.3) % Absolute Neutrophils (1.2-6.7) 10^3/uL Absolute Lymphocytes (1.2-3.4) 10^3/uL Absolute Monocytes (0.1-0.8) 10^3/uL Absolute Eosinophils (0.0-0.7) 10^3/uL Absolute Basophils (0.0-0.2) 10^3/uL D-Dimer (<500) ng/mlFEU VBG Lactate (0.6-1.4) mmol/L Sodium (136-145) mmol/L Potassium (3.5-5.1) mmol/L Chloride (98-107) mmol/L Carbon Dioxide (21.0-32.0) mmol/L Anion Gap (3-11) mmol/L BUN (7-18) mg/dL Creatinine (0.70-1.30) mg/dL Est GFR (CKD-EPI 2020) (mL/min/1.73m2) Glucose (74-106) mg/dL Calcium (8.5-10.1) mg/dL Total Bilirubin (0.2-1.0) mg/dL AST (15-37) U/L ALT (16-63) U/L Alkaline Phosphatase (46-116) U/L Troponin I (<or=60) ng/L < 50 Total Protein (6.4-8.2) g/dL Albumin (3.4-5.0) g/dL Lipase (73-393) U/L Urine Color (Yellow) Yellow Urine Clarity (Clear) Clear Urine pH (5-8) 7.0 Ur Specific [place] (1.005-1.025) 1.020 Urine Protein (Negative) mg/dL 30 H Urine Ketones (Negative) mg/dL Negative Urine Blood (Negative) Negative Urine Nitrite (Negative) Negative Urine Bilirubin (Negative) Negative Urine Urobilinogen (Up TO 0.2) EU/dL 0.2 Ur Leukocyte Esterase (Negative) Negative Urine RBC (0-2) HPF 0-2 Urine WBC (0-5) HPF Negative Ur Epithelial Cells (Negative) HPF Negative Urine Crystals (Negative) HPF Negative Urine Bacteria (Negative) HPF Negative Urine Mucus (Negative) Negative Ur Culture Indicated? No Urine Glucose (Negative) mg/dL Negative COVID-19 Source SARS-CoV-2 (PCR) (Negative) Influenza Type A (PCR) (Negative) Influenza Type B (PCR) (Negative) RSV (PCR) (Negative)
--- NOTE | 2022-02-15 23:51 | HPE_ITS ---
Date of service: 02/15/22 Time of Service: 23:51 Assessment and Plan Assessment and plan (1) Pyelonephritis, acute: Start date: 02/15/22 Status: Acute Assessment and plan: Patient has fever and elevated white count with right chest and flank discomfort with imaging suggesting pyelonephritis though urinalysis was normal. This may have been hematogenously seeded. There is no stranding but enhancement of the kidney suggesting pyelonephritis. He also has cholelithiasis without evidence of cholecystitis and no physical findings of gallbladder inflammation at this time. Rocephin will be given for pyelonephritis and close monitoring for resolution of symptoms as well as follow-up culture of urine and blood. His chest pain was atypical and not reminiscent of his cardiac history with negative troponin. Patient may need further imaging and evaluation if fever persist and pyelonephritis in question with reimaging a possibility. Patient is a full code. (2) Atypical chest pain: Start date: 02/15/22 Status: Acute Assessment and plan: Negative troponins, EKG and imaging for acute processes. Monitor as we treat pyelonephritis. (3) CAD (coronary artery disease), [place] coronary artery: Status: Chronic Assessment and plan: This problem appears to be stable and patient will continue outpatient medical therapy. Monitor cardiac rhythm with repeat troponins only if symptoms change or evolve. (4) Cholelithiasis: Status: Acute Assessment and plan: This appears to be chronic and not complicating his acute situation. Be aware of gallstones being present in case he does manifest cholecystitis as time passes. Long-term he may need to see surgery for further evaluation if he has recurrent atypical chest pain. HIDA scan and ultrasound would be appropriate as an outpatient for follow-up. History of Present Illness History of Present Illness Chief Complaint: Chest and flank pain on the right with fever Narrative: This is a 76-year-old male patient who presented to the ED with right chest discomfort around 1 in the afternoon of the same day and he sought evaluation with a history of CAD and this pain not being typical for angina or cardiac paul rce. He is busy working around his home and after evaluation in the ED he was found to have a right pyelonephritis with urinalysis essentially normal and also began to develop rigors with a temperature up to almost 103 ?F in the ED. The CT scan also shows slight right hydronephrosis but no obvious occlusion. Patient had leukocytosis and was started on treatment for right pyelonephritis with evaluation of the chest pain being otherwise negative for any life- threatening event such as PE. His cardiac work-up was also negative. The patient denied any right flank pain though some of his right chest discomfort was down over the lower aspect of his right chest. He also had no urinary complaints. As stated his chest pain is not reminiscent of his previous cardiac history and symptoms. He had no GI symptoms. The patient does have a significant history of being hard of hearing status post cleft palate repair and surgery for his hearing. He did work as a walking mailman for years and feels he is generally healthy and his disability is do not restrict his activity now or in the past. Review of Systems Narrative: 13 point review of systems otherwise unrevealing or stable. PFSH All Active Problems (Updated 02/16/22 @ 10:13 by Justen Ruano) Cholelithiasis (Acute) Deafness middle ear (Acute) CAD (coronary artery disease), [place] coronary artery (Chronic) Atypical chest pain (Acute) Pyelonephritis, acute (Acute) Medical History (Updated 02/16/22 @ 10:13 by Justen Ruano) Cleft lip and cleft palate Encounter for medical assessment Facial tingling Social History Smoking/Tobacco Use Status: Never Smoking risk assessment performed?: Yes Alcohol Intake: never Drug use: Never Substance use type: does not use Do you feel safe at home: Yes Do you feel safe in your relationship?: Yes Meds Allergies and Home Medications Home Medications Medication Instructions Recorded Confirmed Type amlodipine 5 mg-benazepril 20 mg 1 cap PO QPM 02/15/22 02/16/22 History capsule aspirin 81 mg tablet 81 mg PO DAILY 02/15/22 02/15/22 History atorvastatin 40 mg tablet 40 mg PO QPM 02/15/22 02/16/22 History metoprolol succinate 25 mg 25 mg PO QPM 02/15/22 02/16/22 History tablet,extended release 24 hr riwnggtrcyav-ihxwonau-dslkf acid 1 cap PO DAILY 02/15/22 02/15/22 History 400 mcg-vitamin K 40 mcg capsule nitroglycerin 0.4 mg sublingual 0.4 mg sublingual PER PROTOCOL PRN 02/15/22 02/15/22 History tablet Chest Pain Results Imaging Imaging Studies: Exam: CT Chest With Contrast; Diagnostic Exam date and time: 02/15/2022 7:42 PM Age: 76 years old Clinical indication: Fever and other: Right chest \T\ upper quad pain TECHNIQUE: Imaging protocol: Diagnostic computed tomography of the chest with contrast. 3D rendering (Not supervised by radiologist): MIP and/or 3D reconstructed images were created by the technologist. COMPARISON: XR PORTABLE CHEST AP 02/15/2022 4:44 PM FINDINGS: Lungs: No consolidation. No ground-glass opacity. Pleuroparenchymal scar noted in the right middle lobe. No endobronchial mucus. Pleural spaces: Unremarkable. No pneumothorax. No pleural effusion. Heart: No cardiomegaly. No pericardial effusion. Mild coronary artery calcifications. Lymph nodes: Unremarkable. No enlarged lymph nodes. Vasculature: Unremarkable. No aortic aneurysm.? Bones/joints: No compression fractures. Bulky anterior osteophytes noted at T7-T8. Intact sternum. Unremarkable ribs. Soft tissues: Unremarkable. IMPRESSION: No significant pneumonia. No acute abnormalities. PROCEDURE INFORMATION: Exam: CT Abdomen And Pelvis With Contrast Exam date and time: 02/15/2022 7:42 PM Age: 76 years old Clinical indication: Fever and other: Right chest \T\ upper quad pain TECHNIQUE: Imaging protocol: Computed tomography of the abdomen and pelvis with contrast. 3D rendering (Not supervised by radiologist): MIP and/or 3D reconstructed images were created by the technologist. COMPARISON: XR PORTABLE CHEST AP 02/15/2022 4:44 PM FINDINGS: Lungs: Lung bases are clear. Liver: Liver parenchyma is homogeneous. Multiple small cysts are noted in the liver. Gallbladder and bile ducts: A calcified stone is present at the gallbladder neck, 1.7 cm diameter. No inflammatory changes observed around the gallbladder. No biliary ductal dilatation. Pancreas: Unremarkable pancreas. No inflammatory change or fluid collection. Spleen: Normal. No splenomegaly. Adrenal glands: Normal. No mass. Kidneys and ureters: Multiple cysts are present, up to 3.5 cm diameter on the left. Heterogeneous enhancement of the right kidney is noted. Mild right hydronephrosis. Nondilated ureters. Stomach and bowel: Collapsed stomach. Are nondilated small bowel. Negative for inflammatory changes around the colon. Moderate proximal stool. Moderate sigmoid colon diverticulosis. Appendix: No evidence of appendicitis. Intraperitoneal space: Unremarkable. No free air. No significant fluid collection. Vasculature: Mild vascular calcifications. Negative for abdominal aortic aneurysm. Lymph nodes: Unremarkable. No enlarged lymph nodes. Urinary bladder: No abnormalities. Thin starkey. Reproductive: Right scrotal hydrocele partially visualized. Bones/joints: No compression fractures. Multilevel degenerative disc disease and facet arthropathy noted. Severe neural foraminal narrowing noted at the left L4-L5 level. Narrowing and osteophyte formation noted in both hips. Soft tissues: Mild inguinal hernias noted bilaterally. The right inguinal hernia contains loops of small bowel, and the left inguinal hernia contains a segment of the colon. No associated bowel obstruction. No inflammatory changes. IMPRESSION: 1. Right pyelonephritis questioned. Clinical correlation needed. 2. Bilateral inguinal hernias containing bowel. No obstruction. 3. Cholelithiasis, without cholecystitis. Labs Result diagrams: 02/15/22 16:09 02/15/22 16:09 Labs: Laboratory Results - last 24 hr 02/15/22 02/15/22 02/15/22 16:09 16:09 16:09 WBC 13.15 H RBC 4.04 L Hgb 12.7 L Hct 37.8 L MCV 94 MCH 31.4 MCHC 33.6 RDW 12.1 Plt Count 274 MPV 9.8 Immature Gran % 0.3 Neutrophils % 78.4 Lymphocytes % 11.7 Monocytes % 8.4 Eosinophils % 0.8 Basophils % 0.4 Nucleated RBC % 0.0 Absolute Neutrophils 10.31 H Absolute Lymphocytes 1.54 Absolute Monocytes 1.10 H Absolute Eosinophils 0.11 Absolute Basophils 0.05 D-Dimer 437 VBG Lactate Sodium 140 Potassium 4.6 Chloride 103 Carbon Dioxide 29.9 Anion Gap 7.1 BUN 27 H Creatinine 1.3 Est GFR (CKD-EPI 2020) 57.29 Glucose 182 H Calcium 8.9 Total Bilirubin 0.5 AST 27 ALT 27 Alkaline Phosphatase 117 H Troponin I Total Protein 7.6 Albumin 4.2 Lipase 97 Urine Color Urine Clarity Urine pH Ur Specific [place] Urine Protein Urine Ketones Urine Blood Urine Nitrite Urine Bilirubin Urine Urobilinogen Ur Leukocyte Esterase Urine RBC Urine WBC Ur Epithelial Cells Urine Crystals Urine Bacteria Urine Mucus Ur Culture Indicated? Urine Glucose COVID-19 Source SARS-CoV-2 (PCR) Influenza Type A (PCR) Influenza Type B (PCR) RSV (PCR) 02/15/22 02/15/22 02/15/22 17:07 17:25 18:12 WBC RBC Hgb Hct MCV MCH MCHC RDW Plt Count MPV Immature Gran % Neutrophils % Lymphocytes % Monocytes % Eosinophils % Basophils % Nucleated RBC % Absolute Neutrophils Absolute Lymphocytes Absolute Monocytes Absolute Eosinophils Absolute Basophils D-Dimer VBG Lactate 0.7 Sodium Potassium Chloride Carbon Dioxide Anion Gap BUN Creatinine Est GFR (CKD-EPI 2020) Glucose Calcium Total Bilirubin AST ALT Alkaline Phosphatase Troponin I < 50 Total Protein Albumin Lipase Urine Color Urine Clarity Urine pH Ur Specific [place] Urine Protein Urine Ketones Urine Blood Urine Nitrite Urine Bilirubin Urine Urobilinogen Ur Leukocyte Esterase Urine RBC Urine WBC Ur Epithelial Cells Urine Crystals Urine Bacteria Urine Mucus Ur Culture Indicated? Urine Glucose COVID-19 Source Not Applicable SARS-CoV-2 (PCR) Negative Influenza Type A (PCR) Negative Influenza Type B (PCR) Negative RSV (PCR) Negative 02/15/22 02/15/22 18:50 19:38 WBC RBC Hgb Hct MCV MCH MCHC RDW Plt Count MPV Immature Gran % Neutrophils % Lymphocytes % Monocytes % Eosinophils % Basophils % Nucleated RBC % Absolute Neutrophils Absolute Lymphocytes Absolute Monocytes Absolute Eosinophils Absolute Basophils D-Dimer VBG Lactate Sodium Potassium Chloride Carbon Dioxide Anion Gap BUN Creatinine Est GFR (CKD-EPI 2020) Glucose Calcium Total Bilirubin AST ALT Alkaline Phosphatase Troponin I < 50 Total Protein Albumin Lipase Urine Color Yellow Urine Clarity Clear Urine pH 7.0 Ur Specific [place] 1.020 Urine Protein 30 H Urine Ketones Negative Urine Blood Negative Urine Nitrite Negative Urine Bilirubin Negative Urine Urobilinogen 0.2 Ur Leukocyte Esterase Negative Urine RBC 0-2 Urine WBC Negative Ur Epithelial Cells Negative Urine Crystals Negative Urine Bacteria Negative Urine Mucus Negative Ur Culture Indicated? No Urine Glucose Negative COVID-19 Source SARS-CoV-2 (PCR) Influenza Type A (PCR) Influenza Type B (PCR) RSV (PCR) Last Vital Signs Temp 39.3 C H 02/15/22 18:00 Pulse 80 02/15/22 16:00 Resp 20 02/15/22 16:00 Pulse Ox 96 02/15/22 16:00
[2022-02-16] VITALS (29 sets, daily range): BP systolic 108–145; BP diastolic 56–77; PULSE 55–77; RESP 14–20; TEMP 36.2–36.6; O2SAT 90–98
[2022-02-16] MEDS: Aspirin 81 MG CHEW PO (08:24)
[2022-02-16] MEDS: Enoxaparin 40 MG/0.4 ML SYR SC (10:00)
[2022-02-16 11:03] LABS: Abs Immature Grans 0.05 10^3/uL (0.0-0.06); Absolute Basophil Count 0.07 10^3/uL (0.0-0.2); Absolute Eosinophil Count 0.08 10^3/uL (0.0-0.7); Absolute Monocyte Count 1.49 10^3/uL (0.1-0.8); Basophils % 0.6; Eosinophils % 0.7; HCT 34.6 % (40.0-50.0); HGB 11.8 g/dL (13.5-17.5); Immature Grans % 0.4; Lymphocytes % 12.4; MCH 31.2 pg (27.0-33.0); MCHC 34.1 % (32.0-36.0); MCV 92 fL (80-95); MPV 9.1 fL (8.0-11.0); Monocytes % 12.3; Neutrophils % 73.6; Platelet Count 223 10^3/uL (130-400); RBC 3.78 10^6/uL (4.36-5.78); RDW 12.3 % (11.8-14.1); RDW-SD 40.9 fL; WBC 12.12 10^3/uL (4.4-10.8)
[2022-02-16 11:06] LABS: Absolute Neutrophil Count 8.92 10^3/uL (1.2-6.7)
[2022-02-16 11:17] LABS: ALT 22 U/L (16-63); AST 19 U/L (15-37); Albumin 3.5 g/dL (3.4-5.0); Alkaline Phosphatase 92 U/L (46-116); Anion Gap 8.2 mmol/L (3-11); BUN 20 mg/dL (7-18); Bilirubin, Total 0.7 mg/dL (0.2-1.0); CO2 26.8 mmol/L (21.0-32.0); CREATININE 1.1 mg/dL (0.70-1.30); Calcium 8.8 mg/dL (8.5-10.1); Chloride 103 mmol/L (98-107); Estimated GFR 70.01 (mL/min/1.73m2); Glucose 116 mg/dL (74-106); Potassium 3.8 mmol/L (3.5-5.1); Sodium 138 mmol/L (136-145); Total Protein 7.2 g/dL (6.4-8.2)
--- NOTE | 2022-02-16 15:57 | PGE_ITS ---
Date of Service Date of service: 02/16/22 Time of Service: 15:58 Assessment and Plan Assessment and plan (1) Pyelonephritis, acute: Start date: 02/15/22 Status: Acute Assessment and plan: Patient has fever and elevated white count with right chest and flank discomfort with imaging suggesting pyelonephritis though urinalysis was normal. This may have been hematogenously seeded. There is no stranding but enhancement of the kidney suggesting pyelonephritis. He also has cholelithiasis without evidence of cholecystitis and no physical findings of gallbladder inflammation at this time. Rocephin will be given for pyelonephritis and close monitoring for resolution of symptoms as well as follow-up culture of urine and blood. His chest pain was atypical and not reminiscent of his cardiac history with negative troponin x 2. Patient may need further imaging and evaluation if fever persist and pyelonephritis in question with reimaging a possibility. Patient is a full code. (2) Atypical chest pain: Start date: 02/15/22 Status: Acute Assessment and plan: Negative troponins, EKG and imaging for acute processes. Monitor as we treat pyelonephritis. (3) CAD (coronary artery disease), [place] coronary artery: Status: Chronic Assessment and plan: This problem appears to be stable and patient will continue outpatient medical therapy. Monitor cardiac rhythm with repeat troponins only if symptoms change or evolve. (4) Cholelithiasis: Status: Acute Assessment and plan: This appears to be chronic and not complicating his acute situation. Be aware of gallstones being present in case he does manifest cholecystitis as time passes. Long-term he may need to see surgery for further evaluation if he has recurrent atypical chest pain. HIDA scan and ultrasound would be appropriate as an outpatient for follow-up. Subjective Subjective Patient reports: no new complaints and feels better; denies still having pain, nausea, vomiting or fever Exam Narrative Exam Narrative: Pleasant. Up from chair and ambulated with steady gait. Const General: cooperative, comfortable and no acute distress Eyes General: appearance normal, both eyes and all related structures Sclera: sclerae normal Resp Effort & Inspection: normal respiratory effort Auscultation: clear to auscultation bilaterally Cardio Rate: regular rate Rhythm: regular rhythm Heart Sounds: S1 normal and S2 normal GI Inspection: normal to inspection Palpation: nontender Skin General skin exam: no rashes or lesions noted Neuro General: patient alert, patient oriented x3 and no focal motor deficits Cranial Nerves: facial strength normal Gait: normal gait Extrem General: no pedal edema and no calf tenderness Psych Appearance: grossly normal Mood: congruent mood Affect: normal affect Objective Last Vital Signs Temp 36.5 C 02/16/22 13:47 Pulse 70 02/16/22 13:47 Resp 18 02/16/22 13:47 BP 145/74 H 02/16/22 13:47 Pulse Ox 98 02/16/22 13:47 Laboratory Results - last 24 hr 02/15/22 02/15/22 02/15/22 16:09 16:09 16:09 WBC 13.15 H RBC 4.04 L Hgb 12.7 L Hct 37.8 L MCV 94 MCH 31.4 MCHC 33.6 RDW 12.1 Plt Count 274 MPV 9.8 Immature Gran % 0.3 Neutrophils % 78.4 Lymphocytes % 11.7 Monocytes % 8.4 Eosinophils % 0.8 Basophils % 0.4 Nucleated RBC % 0.0 Absolute Neutrophils 10.31 H Absolute Lymphocytes 1.54 Absolute Monocytes 1.10 H Absolute Eosinophils 0.11 Absolute Basophils 0.05 D-Dimer 437 VBG Lactate Sodium 140 Potassium 4.6 Chloride 103 Carbon Dioxide 29.9 Anion Gap 7.1 BUN 27 H Creatinine 1.3 Est GFR (CKD-EPI 2020) 57.29 Glucose 182 H Calcium 8.9 Total Bilirubin 0.5 AST 27 ALT 27 Alkaline Phosphatase 117 H Troponin I Total Protein 7.6 Albumin 4.2 Lipase 97 Urine Color Urine Clarity Urine pH Ur Specific [place] Urine Protein Urine Ketones Urine Blood Urine Nitrite Urine Bilirubin Urine Urobilinogen Ur Leukocyte Esterase Urine RBC Urine WBC Ur Epithelial Cells Urine Crystals Urine Bacteria Urine Mucus Ur Culture Indicated? Urine Glucose COVID-19 Source SARS-CoV-2 (PCR) Influenza Type A (PCR) Influenza Type B (PCR) RSV (PCR) 02/15/22 02/15/22 02/15/22 17:07 17:25 18:12 WBC RBC Hgb Hct MCV MCH MCHC RDW Plt Count MPV Immature Gran % Neutrophils % Lymphocytes % Monocytes % Eosinophils % Basophils % Nucleated RBC % Absolute Neutrophils Absolute Lymphocytes Absolute Monocytes Absolute Eosinophils Absolute Basophils D-Dimer VBG Lactate 0.7 Sodium Potassium Chloride Carbon Dioxide Anion Gap BUN Creatinine Est GFR (CKD-EPI 2020) Glucose Calcium Total Bilirubin AST ALT Alkaline Phosphatase Troponin I < 50 Total Protein Albumin Lipase Urine Color Urine Clarity Urine pH Ur Specific [place] Urine Protein Urine Ketones Urine Blood Urine Nitrite Urine Bilirubin Urine Urobilinogen Ur Leukocyte Esterase Urine RBC Urine WBC Ur Epithelial Cells Urine Crystals Urine Bacteria Urine Mucus Ur Culture Indicated? Urine Glucose COVID-19 Source Not Applicable SARS-CoV-2 (PCR) Negative Influenza Type A (PCR) Negative Influenza Type B (PCR) Negative RSV (PCR) Negative 02/15/22 02/15/22 02/16/22 18:50 19:38 11:00 WBC RBC Hgb Hct MCV MCH MCHC RDW Plt Count MPV Immature Gran % Neutrophils % Lymphocytes % Monocytes % Eosinophils % Basophils % Nucleated RBC % Absolute Neutrophils Absolute Lymphocytes Absolute Monocytes Absolute Eosinophils Absolute Basophils D-Dimer VBG Lactate Sodium 138 Potassium 3.8 Chloride 103 Carbon Dioxide 26.8 Anion Gap 8.2 BUN 20 H Creatinine 1.1 Est GFR (CKD-EPI 2020) 70.01 Glucose 116 H Calcium 8.8 Total Bilirubin 0.7 AST 19 ALT 22 Alkaline Phosphatase 92 Troponin I < 50 Total Protein 7.2 Albumin 3.5 Lipase Urine Color Yellow Urine Clarity Clear Urine pH 7.0 Ur Specific [place] 1.020 Urine Protein 30 H Urine Ketones Negative Urine Blood Negative Urine Nitrite Negative Urine Bilirubin Negative Urine Urobilinogen 0.2 Ur Leukocyte Esterase Negative Urine RBC 0-2 Urine WBC Negative Ur Epithelial Cells Negative Urine Crystals Negative Urine Bacteria Negative Urine Mucus Negative Ur Culture Indicated? No Urine Glucose Negative COVID-19 Source SARS-CoV-2 (PCR) Influenza Type A (PCR) Influenza Type B (PCR) RSV (PCR) 02/16/22 11:00 WBC 12.12 H RBC 3.78 L Hgb 11.8 L Hct 34.6 L MCV 92 MCH 31.2 MCHC 34.1 RDW 12.3 Plt Count 223 MPV 9.1 Immature Gran % 0.4 Neutrophils % 73.6 Lymphocytes % 12.4 Monocytes % 12.3 Eosinophils % 0.7 Basophils % 0.6 Nucleated RBC % 0.0 Absolute Neutrophils 8.92 H Absolute Lymphocytes 1.50 Absolute Monocytes 1.49 H Absolute Eosinophils 0.08 Absolute Basophils 0.07 D-Dimer VBG Lactate Sodium Potassium Chloride Carbon Dioxide Anion Gap BUN Creatinine Est GFR (CKD-EPI 2020) Glucose Calcium Total Bilirubin AST ALT Alkaline Phosphatase Troponin I Total Protein Albumin Lipase Urine Color Urine Clarity Urine pH Ur Specific [place] Urine Protein Urine Ketones Urine Blood Urine Nitrite Urine Bilirubin Urine Urobilinogen Ur Leukocyte Esterase Urine RBC Urine WBC Ur Epithelial Cells Urine Crystals Urine Bacteria Urine Mucus Ur Culture Indicated? Urine Glucose COVID-19 Source SARS-CoV-2 (PCR) Influenza Type A (PCR) Influenza Type B (PCR) RSV (PCR)
[2022-02-16] MEDS: Atorvastatin 40 MG TAB PO (19:30)
[2022-02-16] MEDS: Benazepril 10 MG TAB 20 MG PO (19:30)
[2022-02-16] MEDS: Metoprolol CR 25 MG TABCR PO (19:30)
[2022-02-16] MEDS: amLODIPine 5 MG TAB PO (19:30)
[2022-02-16] MEDS: Normal Saline Flush 10 ML SYR IVP (19:31)
[2022-02-16] MEDS: cefTRIAXone 2 GM/50 ML BAG IVPB (19:32)
[2022-02-16] MEDS: Normal Saline 500 ML 30 ML IV (19:32)
[2022-02-17 03:52] VITALS: BP 142/76; PULSE 70; RESP 18; TEMP 36.3; O2SAT 94
[2022-02-17 07:37] LABS: Abs Immature Grans 0.04 10^3/uL (0.0-0.06); Absolute Basophil Count 0.07 10^3/uL (0.0-0.2); Absolute Eosinophil Count 0.15 10^3/uL (0.0-0.7); Absolute Lymphocyte Count 1.16 10^3/uL (1.2-3.4); Absolute Monocyte Count 1.33 10^3/uL (0.1-0.8); Absolute Neutrophil Count 7.74 10^3/uL (1.2-6.7); Basophils % 0.7; Eosinophils % 1.4; HCT 35.6 % (40.0-50.0); HGB 12.1 g/dL (13.5-17.5); Immature Grans % 0.4; Lymphocytes % 11.1; MCH 31.3 pg (27.0-33.0); MCV 92 fL (80-95); MPV 9.7 fL (8.0-11.0); Monocytes % 12.7; Neutrophils % 73.7; Platelet Count 234 10^3/uL (130-400); RBC 3.86 10^6/uL (4.36-5.78); RDW 12.3 % (11.8-14.1); RDW-SD 41.7 fL; WBC 10.49 10^3/uL (4.4-10.8)
[2022-02-17 07:49] VITALS: BP 113/73; PULSE 56; RESP 16; TEMP 36.7; O2SAT 97
[2022-02-17] MEDS: Multivitamin w/Minerals TAB 1 TAB PO (09:13)
[2022-02-17] MEDS: Aspirin 81 MG CHEW PO (09:14)
[2022-02-17] MEDS: Enoxaparin 40 MG/0.4 ML SYR SC (09:14)
--- NOTE | 2022-02-17 09:17 | PDOC.CMIN ---
- If Service Date Differs Date of service: 02/17/22 Time of Service: 09:17 Care Management Initial Assess REASON FOR HOSPITALIZATION:: acute pyelonephritis PAST MEDICAL HISTORY/PAST SURGICAL HISTORY:: All Active Problems (Updated 02/16/22 @ 10:13 by Justen Ruano). Cholelithiasis (Acute). Deafness middle ear (Acute). CAD (coronary artery disease), [place] coronary artery (Chronic). Atypical chest pain (Acute). Pyelonephritis, acute (Acute). Medical History (Updated 02/16/22 @ 10:13 by Justen Ruano). Cleft lip and cleft palate. Encounter for medical assessment. Facial tingling PREVIOUS FUNCTIONAL STATUS/SOCIAL/FAMILY SUPPORTS:: Justen lives in a single family home in [place] with his Ling.The couple does not have any children. Justen explained that they did not until they were in their forties. 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 he is independent at baseline and does not receive any services. CURRENT FUNCTIONAL STATUS:: Justen was preparing for discharge when CM met with him. He was pleasant and engaged easily with CM. Justen denied the need for services and made a point of telling CM about the wonderful care he has received from the nursing staff at [facility]. ADVANCE DIRECTIVES:: none on file Has patient been provided with info about the portal/API?: Yes Did the patient sign up for the portal?: No CODE STATUS:: DNR/DNI INSURANCE COVERAGE / FINANCIAL ISSUES:: Medicare. BS CURRENT HOME/COMMUNITY SERVICES/EQUIPMENT:: none PRIMARY CARE PHYSICIAN:: Shawn Blanton POTENTIAL DISCHARGE NEEDS:: follow up [facility] PCP, urology and plan of care PATIENT/FAMILY EDUCATION NEEDS:: Review of discharge instructions, limitations, follow up plan, activity, Ask Me Three TRANSPORTATION:: via private vehicle with family PLAN:: Justen will be discharged home with no new services. He will follow up with his PCP and plan of care and transport with family.
[2022-02-17 09:19] VITALS: PULSE 59
--- NOTE | 2022-02-17 10:29 | W.PM.DS.N ---
Date of service: 02/17/22 Time of Service: 10:29 DS: Diagnosis Discharge Diagnosis (1) Pyelonephritis, acute: Status: Acute Asessment and Plan: Fever, rigors, elevated WBC count and hypoattenuation of Right kidney on CT scan. Did receive antibiotics and fluids. No further pain or fevers. Will d/c on Levaquin 750mg daily for 5 doses. Given an initial dose prior to discharge. (2) Atypical chest pain: Status: Acute Asessment and Plan: No EKG findings. Troponin negative. Referred pain from pyelonephritis vs referred pain from gall bladder? (3) CAD (coronary artery disease), [place] coronary artery: Status: Chronic Asessment and Plan: Cont ASA, atorvastatin, metoprolol, prn nitro. (4) Cholelithiasis: Status: Acute Asessment and Plan: Watch for RUQ pain. Further Right sided chest pain may also be related to GB; referred pain. Heart healthy diet (low fat). Discharge Plan Disposition Patient Disposition: HOME Condition: Good Discharge Details Reason For Visit: Right Pyelonephritis, cholelithiasis Admit Date/Time: 02/16/22 13:40 Admit Provider: Shawn Newell Attending Provider: Shawn Newell Primary Care Provider: Shawn Blanton Hospital Course Hospital Course: This is a 76-year-old male patient who presented to the ED with right upper chest discomfort around 1 in the afternoon of the same day and he sought evaluation with a history of CAD and this pain not being typical for angina or cardiac source.? He was busy working around his home at the time of the pain. Evaluation in the ED he was found to have area of decreased attenuation in the right kidney on CT; consistent with a likely pyelonephritis. His urinalysis essentially normal. He developed rigors with a temperature up to almost 103 ?F in the ED.? Patient had leukocytosis and was started on treatment for right pyelonephritis with evaluation of the chest pain being otherwise negative for any life-threatening event such as PE.? His cardiac work-up was also negative.? The patient denied any right flank pain though some of his right chest discomfort was down over the lower aspect of his right chest.? He also had no urinary complaints.? As stated his chest pain is not reminiscent of his previous cardiac history and symptoms.? He had no GI symptoms, though CT should cholelithiasis. The patient does have a significant history of being hard of hearing status post cleft palate repair and surgery for his hearing. See Diagnosis PCP follow up in 1-2 weeks. Home Meds and New Rx's Prescriptions: New levofloxacin 750 mg tablet 750 mg PO DAILY Qty: 5 0RF Rx Instructions: First dose on 02/18/22 Continued atorvastatin 40 mg Tablet 40 mg PO QPM amlodipine-benazepril 5-20 mg Capsule 1 cap PO QPM nitroglycerin 0.4 mg Tablet, Sublingual 0.4 mg sublingual PER PROTOCOL PRN (Reason: Chest Pain) aspirin 81 mg Tablet 81 mg PO DAILY metoprolol succinate 25 mg Tablet Extended Release 24 Hr 25 mg PO QPM [id number]-spt-umqpj acid-vit K 400-40 mcg Capsule 1 cap PO DAILY Discharge Instructions Instructions: Kidney Infection (DC) Stand Alone Forms: Nursing Discharge Form Referrals: Unknown,Unknown [STAFF PHYSICIAN] - (Please call your Primary Care Doctor to make an Appointment in the next 2 weeks ) Activity:: Activity as Tolerated Equipment/Supplies:: No Equipment Needed Diet:: Resume usual home diet Discharge Orders Discharge Orders: Discharge Order (Routine); Ordered 02/17/22 Ordered By: Shawn Newell Discharge Data Discharge Date/Time-TO BE ENTERED AT DEPARTURE: 02/17/22 14:35 DS: Summary Time Spent with Patient providing and/or coordinating discharge services: Greater than 30 minutes Status at Discharge Functional status at discharge: independent ambulation Overall status at discharge: patient is back to baseline Mental Status: mental status grossly normal Speech and Movement: speech and movement normal Mood: congruent mood Affect: normal affect Exam Narrative Exam Narrative: Pleasant. Sitting in recliner. Denies current CP/abd pain. Const General: cooperative, comfortable and no acute distress Eyes General: appearance normal, both eyes and all related structures Sclera: sclerae normal Resp Effort & Inspection: normal respiratory effort Auscultation: clear to auscultation bilaterally Cardio Rate: regular rate Rhythm: regular rhythm Heart Sounds: S1 normal and S2 normal GI Inspection: normal to inspection Palpation: nontender Skin General skin exam: no rashes or lesions noted Neuro General: patient alert, patient oriented x3 and no focal motor deficits Cranial Nerves: facial strength normal Gait: normal gait Extrem General: no pedal edema and no calf tenderness Psych Appearance: grossly normal Mental Status: mental status grossly normal Speech and Movement: speech and movement normal Mood: congruent mood Affect: normal affect DS: Data Vitals/I&O Vitals and I&O: Vital Signs Temperature 36.7 C 02/17/22 07:49 Temperature Source Tympanic 02/17/22 07:49 Pulse 59 L 02/17/22 09:19 Pulse Rhythm Regular 02/17/22 04:20 Pulse 73 02/16/22 06:31 Respiratory Rate 16 02/17/22 07:49 Respiratory Effort Non-Labored 02/17/22 04:20 Respiratory Depth Normal 02/17/22 04:20 Respiratory Pattern Normal 02/17/22 04:20 Blood Pressure 113/73 02/17/22 07:49 Blood Pressure Mean 79 02/16/22 07:01 Blood Pressure Position Sitting 02/15/22 16:00 Pulse Oximetry 97 02/17/22 07:49 Oxygen Delivery Method Room Air 02/17/22 07:49 Oxygen Flow Rate 0 02/17/22 07:49 Pain Level 0 02/17/22 07:49 Comment 02/15/22 17:25 Intake & Output 02/16/22 02/16/22 02/17/22 11:59 23:59 11:59 Intake Total 334 / 334 Output Total 1350 / 1350 1600 / 1600 Balance -1016 / -1016 -1600 / -1600 Weight 65.771 kg 68 kg Intake: IV 94 / 94 Oral 240 / 240 Output: Urine 1350 / 1350 1600 / 1600 Other: Urine Color Pale Straw Urine Appearance Clear Clear Urine Odor None None Comment pt reports he voided, but hat was not in the toilet. Voiding Methods Toilet Toilet Data Completed and Pending Labs on day of discharge: Labs from last 24 hours 02/17/22 02/16/22 02/16/22 06:48 11:00 11:00 WBC 10.49 12.12 H RBC 3.86 L 3.78 L Hgb 12.1 L 11.8 L Hct 35.6 L 34.6 L MCV 92 92 MCH 31.3 31.2 MCHC 34.0 34.1 RDW 12.3 12.3 Plt Count 234 223 MPV 9.7 9.1 Immature Gran % 0.4 0.4 Neutrophils % 73.7 73.6 Lymphocytes % 11.1 12.4 Monocytes % 12.7 12.3 Eosinophils % 1.4 0.7 Basophils % 0.7 0.6 Nucleated RBC % 0.0 0.0 Absolute Neutrophils 7.74 H 8.92 H Absolute Lymphocytes 1.16 L 1.50 Absolute Monocytes 1.33 H 1.49 H Absolute Eosinophils 0.15 0.08 Absolute Basophils 0.07 0.07 Sodium 138 Potassium 3.8 Chloride 103 Carbon Dioxide 26.8 Anion Gap 8.2 BUN 20 H Creatinine 1.1 Est GFR (CKD-EPI 2020) 70.01 Glucose 116 H Calcium 8.8 Total Bilirubin 0.7 AST 19 ALT 22 Alkaline Phosphatase 92 Total Protein 7.2 Albumin 3.5 Preliminary micro results at discharge 02/15/22 21:26 Urine Culture - Preliminary Urine - Clean Catch Gram Positive Carmen,Mixed 02/15/22 18:30 Blood Culture - Preliminary Blood NO GROWTH 24 HOURS 02/15/22 18:30 Blood Culture - Preliminary Blood NO GROWTH 24 HOURS PFSH All Active Problems Cholelithiasis (Acute) Deafness middle ear (Acute) CAD (coronary artery disease), [place] coronary artery (Chronic) Atypical chest pain (Acute) Pyelonephritis, acute (Acute) Medical History Cleft lip and cleft palate Encounter for medical assessment Facial tingling Social History Smoking/Tobacco Use Status: Never Smoking risk assessment performed?: Yes Alcohol Intake: never Drug use: Never Substance use type: does not use Do you feel safe at home: Yes Do you feel safe in your relationship?: Yes
[2022-02-17 11:23] VITALS: BP 105/63; PULSE 63; RESP 17; TEMP 36.2; O2SAT 96
[2022-02-17] MEDS: levoFLOXacin 500 MG, levoFLOXacin 250 MG 750 MG PO (11:34)
--- NOTE | 2022-02-17 17:55 | PDOC.CMDIS ---
- If Service Date Differs Date of service: 02/17/22 Time of Service: 17:55 LACE Index Scoring Tool - Questions: Length of Stay (in days): 1 Acuity (Admit via E.D.?): Yes E.D. Visits: 1 - Answers: Total Score: 5 Risk of Readmission: Low Risk Care Management Discharge Reason for Hospitalization: acute pyelonephritis Discharge Plan: Justen will be discharged home with no new services. He will follow up with his PCP and plan of care and transport with family. Patient/Family Education Needs: Review of discharge instructions, limitations, follow up plan, activity, Ask Me Three
== END 2022-02-17 14:35 | disposition home or self-care (01) | DRG 690 ==
LOC: ER 02-16 00:16 → MS 02-16 13:41
PROVIDERS: Family Medicine; Admitting Provider Family Medicine; Emergency Provider Physician Assistant; PCP Internal Medicine; Visit Provider Family Medicine
DX: N13.6 Pyonephrosis (principal); R07.89 Other chest pain; K80.20 Calculus of gallbladder without cholecystitis without obstruction; I25.10 Atherosclerotic heart disease of native coronary artery without angina pectoris
CPT/HCPCS: 36415; 74177; 80053; 83690; 87040; 87637; 90662; 93005; 96361; 96365; 99284; 99285; J1650; 71045; 71260; 81003; 81015; 83605; 84484; 85025; 85379; 87086; 93010; 99223; 99232; 99239; J3490

== ENCOUNTER 2023-06-16 10:35 | Outpatient (CLI) | payer MEDICARE, BC, SELFPAY ==
[2023-06-16 08:11] LABS: Abs Immature Grans 0.03 10^3/uL (0.0-0.06); Absolute Basophil Count 0.07 10^3/uL (0.0-0.2); Absolute Eosinophil Count 0.14 10^3/uL (0.0-0.7); Absolute Lymphocyte Count 0.99 10^3/uL (1.2-3.4); Absolute Monocyte Count 0.81 10^3/uL (0.1-0.8); Absolute Neutrophil Count 7.77 10^3/uL (1.2-6.7); Basophils % 0.7; Eosinophils % 1.4; HCT 29.6 % (40.0-50.0); HGB 9.5 g/dL (13.5-17.5); Immature Grans % 0.3; Lymphocytes % 10.1; MCH 29.9 pg (27.0-33.0); MCHC 32.1 % (32.0-36.0); MCV 93 fL (80-95); MPV 8.9 fL (8.0-11.0); Monocytes % 8.3; Neutrophils % 79.2; Platelet Count 337 10^3/uL (130-400); RBC 3.18 10^6/uL (4.36-5.78); RDW 13.7 % (11.8-14.1); RDW-SD 47.1 fL; WBC 9.81 10^3/uL (4.4-10.8)
[2023-06-16 08:35] LABS: ALT 56 U/L (16-63); AST 39 U/L (15-37); Alkaline Phosphatase 233 U/L (46-116); Anion Gap 10.3 mmol/L (3-11); BUN 26 mg/dL (7-18); Bilirubin, Total 0.4 mg/dL (0.2-1.0); CO2 26.7 mmol/L (21.0-32.0); CREATININE 1.8 mg/dL (0.70-1.30); Calcium 9.2 mg/dL (8.5-10.1); Chloride 100 mmol/L (98-107); Estimated GFR 38.29 (mL/min/1.73m2); FREE T4 1.15 ng/dL (0.76-1.46); Glucose 174 mg/dL (74-106); Potassium 3.5 mmol/L (3.5-5.1); Sodium 137 mmol/L (136-145); TSH 4.83 uIU/mL (0.36-3.74); Total Protein 7.2 g/dL (6.4-8.2)
== END 2023-06-16 10:36 | disposition home or self-care (01) ==
LOC: LBO 10:35
PROVIDERS: Visit Provider Internal Medicine
DX: R94.6 Abnormal results of thyroid function studies (principal); C79.10 Secondary malignant neoplasm of unspecified urinary organs
CPT/HCPCS: 36415; 80053; 84439; 84443; 85025

== ENCOUNTER 2023-07-01 09:00 | Outpatient (RCR) | payer MEDICARE, BC, SELFPAY ==
[2023-06-23 09:46] LABS: Abs Immature Grans 0.03 10^3/uL (0.0-0.06); Absolute Basophil Count 0.04 10^3/uL (0.0-0.2); Absolute Lymphocyte Count 0.92 10^3/uL (1.2-3.4); Absolute Monocyte Count 1.08 10^3/uL (0.1-0.8); Absolute Neutrophil Count 6.28 10^3/uL (1.2-6.7); Basophils % 0.5; Eosinophils % 1.2; HCT 26.1 % (40.0-50.0); HGB 8.5 g/dL (13.5-17.5); Immature Grans % 0.4; Lymphocytes % 10.9; MCH 30.6 pg (27.0-33.0); MCHC 32.6 % (32.0-36.0); MCV 94 fL (80-95); MPV 9.7 fL (8.0-11.0); Monocytes % 12.8; Neutrophils % 74.2; Platelet Count 359 10^3/uL (130-400); RBC 2.78 10^6/uL (4.36-5.78); RDW 13.7 % (11.8-14.1); RDW-SD 47.3 fL; WBC 8.45 10^3/uL (4.4-10.8)
[2023-06-23 10:04] LABS: Diff Comment Diff Reviewed; Hypochromasia 2+
[2023-06-23 10:11] LABS: ALT 78 U/L (16-63); AST 70 U/L (15-37); Albumin 2.8 g/dL (3.4-5.0); Alkaline Phosphatase 322 U/L (46-116); Anion Gap 8.7 mmol/L (3-11); BUN 30 mg/dL (7-18); Bilirubin, Total 0.4 mg/dL (0.2-1.0); CO2 27.3 mmol/L (21.0-32.0); CREATININE 1.6 mg/dL (0.70-1.30); Calcium 8.8 mg/dL (8.5-10.1); Chloride 103 mmol/L (98-107); Glucose 105 mg/dL (74-106); Potassium 4.1 mmol/L (3.5-5.1); Sodium 139 mmol/L (136-145); Total Protein 6.8 g/dL (6.4-8.2)
[2023-06-23 10:30] LABS: TSH 4.13 uIU/mL (0.36-3.74)
[2023-06-23] MEDS: Normal Saline Flush 10 ML SYR IVP (14:39)
[2023-07-01] MEDS: Normal Saline Flush 10 ML SYR IVP (09:01)
[2023-07-01 09:23] LABS: Abs Immature Grans 0.07 10^3/uL (0.0-0.06); Absolute Basophil Count 0.06 10^3/uL (0.0-0.2); Absolute Eosinophil Count 0.15 10^3/uL (0.0-0.7); Absolute Lymphocyte Count 1.06 10^3/uL (1.2-3.4); Absolute Monocyte Count 0.92 10^3/uL (0.1-0.8); Absolute Neutrophil Count 6.91 10^3/uL (1.2-6.7); Basophils % 0.7; Eosinophils % 1.6; HCT 26.2 % (40.0-50.0); HGB 8.5 g/dL (13.5-17.5); Immature Grans % 0.8; Lymphocytes % 11.6; MCH 30.2 pg (27.0-33.0); MCHC 32.4 % (32.0-36.0); MCV 93 fL (80-95); MPV 9.3 fL (8.0-11.0); Neutrophils % 75.3; Platelet Count 363 10^3/uL (130-400); RBC 2.81 10^6/uL (4.36-5.78); RDW 14.1 % (11.8-14.1); RDW-SD 47.8 fL; WBC 9.17 10^3/uL (4.4-10.8)
[2023-07-01 09:52] LABS: ALT 50 U/L (16-63); AST 38 U/L (15-37); Albumin 2.7 g/dL (3.4-5.0); Alkaline Phosphatase 198 U/L (46-116); Anion Gap 10.5 mmol/L (3-11); BUN 20 mg/dL (7-18); Bilirubin, Total 0.4 mg/dL (0.2-1.0); CO2 26.5 mmol/L (21.0-32.0); CREATININE 1.6 mg/dL (0.70-1.30); Calcium 8.7 mg/dL (8.5-10.1); Chloride 101 mmol/L (98-107); FREE T4 1.07 ng/dL (0.76-1.46); Glucose 167 mg/dL (74-106); Potassium 3.7 mmol/L (3.5-5.1); Sodium 138 mmol/L (136-145); TSH 4.19 uIU/Ml (0.36-3.74); Total Protein 6.7 g/dL (6.4-8.2)
== END 2023-07-02 23:59 | disposition home or self-care (01) ==
LOC: INF 09:00
PROVIDERS: Visit Provider Internal Medicine
DX: C79.10 Secondary malignant neoplasm of unspecified urinary organs (principal); R94.6 Abnormal results of thyroid function studies; Z45.2 Encounter for adjustment and management of vascular access device
CPT/HCPCS: 36591; 80053; 84439; 84443; 85025

== ENCOUNTER 2023-07-28 04:27 | Outpatient (RCR) | payer MEDICARE, BC, SELFPAY ==
[2023-07-07] MEDS: Normal Saline Flush 10 ML SYR IVP (08:11)
[2023-07-07 08:13] LABS: Abs Immature Grans 0.04 10^3/uL (0.0-0.06); Absolute Basophil Count 0.06 10^3/uL (0.0-0.2); Absolute Eosinophil Count 0.16 10^3/uL (0.0-0.7); Absolute Monocyte Count 0.91 10^3/uL (0.1-0.8); Absolute Neutrophil Count 6.31 10^3/uL (1.2-6.7); Basophils % 0.7; Eosinophils % 1.9; HCT 25.5 % (40.0-50.0); HGB 8.1 g/dL (13.5-17.5); Immature Grans % 0.5; Lymphocytes % 12.8; MCH 29.9 pg (27.0-33.0); MCHC 31.8 % (32.0-36.0); MCV 94 fL (80-95); MPV 9.1 fL (8.0-11.0); Monocytes % 10.6; Neutrophils % 73.5; Platelet Count 340 10^3/uL (130-400); RBC 2.71 10^6/uL (4.36-5.78); RDW 14.1 % (11.8-14.1); RDW-SD 47.5 fL; WBC 8.58 10^3/uL (4.4-10.8)
[2023-07-07 08:25] LABS: Diff Comment Diff Reviewed; Hypochromasia 2+
[2023-07-07 08:37] LABS: ALT 40 U/L (16-63); AST 35 U/L (15-37); Albumin 2.7 g/dL (3.4-5.0); Alkaline Phosphatase 157 U/L (46-116); Anion Gap 6.9 mmol/L (3-11); BUN 24 mg/dL (7-18); Bilirubin, Total 0.3 mg/dL (0.2-1.0); CO2 28.1 mmol/L (21.0-32.0); CREATININE 1.7 mg/dL (0.70-1.30); Calcium 8.4 mg/dL (8.5-10.1); Chloride 102 mmol/L (98-107); Estimated GFR 41.01 (mL/min/1.73m2); FREE T4 0.98 ng/dL (0.76-1.46); Glucose 159 mg/dL (74-106); Potassium 3.9 mmol/L (3.5-5.1); Sodium 137 mmol/L (136-145); TSH 4.03 uIU/Ml (0.36-3.74); Total Protein 6.5 g/dL (6.4-8.2)
[2023-07-07 10:53] LABS: Reticulocyte 1.5 % (0.5-2.4)
[2023-07-07 11:30] LABS: Ferritin 60 ng/mL (26-388); Folate > 20.0 ng/mL (8.6-20.0); Vitamin B12 400 pg/mL (193-986)
[2023-07-13] MEDS: Normal Saline Flush 10 ML SYR IVP (11:56)
[2023-07-13 12:01] LABS: Abs Immature Grans 0.04 10^3/uL (0.0-0.06); Absolute Basophil Count 0.06 10^3/uL (0.0-0.2); Absolute Eosinophil Count 0.17 10^3/uL (0.0-0.7); Absolute Lymphocyte Count 1.21 10^3/uL (1.2-3.4); Absolute Monocyte Count 1.01 10^3/uL (0.1-0.8); Absolute Neutrophil Count 4.91 10^3/uL (1.2-6.7); Basophils % 0.8; Eosinophils % 2.3; HCT 26.7 % (40.0-50.0); HGB 8.6 g/dL (13.5-17.5); Immature Grans % 0.5; Lymphocytes % 16.4; MCH 30.2 pg (27.0-33.0); MCHC 32.2 % (32.0-36.0); MCV 94 fL (80-95); MPV 9.2 fL (8.0-11.0); Monocytes % 13.6; Neutrophils % 66.4; Platelet Count 375 10^3/uL (130-400); RBC 2.85 10^6/uL (4.36-5.78); RDW 14.4 % (11.8-14.1); RDW-SD 48.4 fL; Reticulocyte 1.2 % (0.5-2.4)
[2023-07-13 12:25] LABS: Iron 78 ug/dL (65-175); Total Iron Binding Capacity 317 ug/dL (250-450); Transferrin Sat 25 % (20-55)
[2023-07-13 12:31] LABS: ALT 35 U/L (16-63); AST 31 U/L (15-37); Albumin 2.8 g/dL (3.4-5.0); Alkaline Phosphatase 154 U/L (46-116); Anion Gap 10.2 mmol/L (3-11); BUN 23 mg/dL (7-18); Bilirubin, Total 0.3 mg/dL (0.2-1.0); CO2 26.8 mmol/L (21.0-32.0); CREATININE 1.6 mg/dL (0.70-1.30); Calcium 8.4 mg/dL (8.5-10.1); Chloride 102 mmol/L (98-107); Glucose 116 mg/dL (74-106); LDH 224 U/L (85-227); Potassium 3.9 mmol/L (3.5-5.1); Sodium 139 mmol/L (136-145); TSH 3.66 uIU/Ml (0.36-3.74); Total Protein 6.7 g/dL (6.4-8.2)
[2023-07-13 13:09] LABS: Ferritin 62 ng/mL (26-388); Vitamin B12 432 pg/mL (193-986)
[2023-07-13 13:14] LABS: Folate > 20.0 ng/mL (8.6-20.0)
[2023-07-14 16:21] LABS: Haptoglobin 292 mg/dL (32-197)
[2023-07-15 11:07] LABS: Copper, Serum 95 mcg/dL (73-129)
[2023-07-16 09:32] LABS: Methylmalonic Acid 0.29 nmol/mL (<=0.40)
[2023-07-28] MEDS: Normal Saline Flush 10 ML SYR IVP (08:45)
[2023-07-28 08:52] LABS: Abs Immature Grans 0.04 10^3/uL (0.0-0.06); Absolute Basophil Count 0.06 10^3/uL (0.0-0.2); Absolute Lymphocyte Count 1.24 10^3/uL (1.2-3.4); Absolute Monocyte Count 0.89 10^3/uL (0.1-0.8); Absolute Neutrophil Count 6.67 10^3/uL (1.2-6.7); Basophils % 0.7; Eosinophils % 2.2; HCT 27.3 % (40.0-50.0); HGB 8.6 g/dL (13.5-17.5); Immature Grans % 0.4; Lymphocytes % 13.6; MCH 30.4 pg (27.0-33.0); MCHC 31.5 % (32.0-36.0); MCV 97 fL (80-95); MPV 8.9 fL (8.0-11.0); Monocytes % 9.8; Neutrophils % 73.3; Platelet Count 325 10^3/uL (130-400); RBC 2.83 10^6/uL (4.36-5.78); RDW 15.4 % (11.8-14.1); RDW-SD 53.7 fL
[2023-07-28 09:16] LABS: ALT 42 U/L (16-63); AST 38 U/L (15-37); Albumin 2.8 g/dL (3.4-5.0); Alkaline Phosphatase 142 U/L (46-116); Anion Gap 8.4 mmol/L (3-11); BUN 32 mg/dL (7-18); Bilirubin, Total 0.3 mg/dL (0.2-1.0); CO2 27.6 mmol/L (21.0-32.0); CREATININE 1.5 mg/dL (0.70-1.30); Calcium 8.6 mg/dL (8.5-10.1); Chloride 104 mmol/L (98-107); Estimated GFR 47.65 (mL/min/1.73m2); FREE T4 0.86 ng/dL (0.76-1.46); Glucose 156 mg/dL (74-106); Potassium 3.8 mmol/L (3.5-5.1); Sodium 140 mmol/L (136-145); TSH 3.55 uIU/Ml (0.36-3.74); Total Protein 6.7 g/dL (6.4-8.2)
== END 2023-08-02 23:59 | disposition home or self-care (01) ==
LOC: INF 04:27
PROVIDERS: Visit Provider Internal Medicine
DX: C79.10 Secondary malignant neoplasm of unspecified urinary organs (principal); R94.6 Abnormal results of thyroid function studies; D64.9 Anemia, unspecified; Z45.2 Encounter for adjustment and management of vascular access device
CPT/HCPCS: 36591; 80053; 80186; 82525; 82607; 82728; 82746; 83010; 83540; 83550; 83615; 84439; 84443; 85025; 85045

== ENCOUNTER 2023-08-25 04:41 | Outpatient (RCR) | payer MEDICARE, BC, SELFPAY ==
[2023-08-04] MEDS: Normal Saline Flush 10 ML SYR IVP (08:49)
[2023-08-04 09:05] LABS: Abs Immature Grans 0.04 10^3/uL (0.0-0.06); Absolute Basophil Count 0.06 10^3/uL (0.0-0.2); Absolute Lymphocyte Count 1.25 10^3/uL (1.2-3.4); Absolute Monocyte Count 0.98 10^3/uL (0.1-0.8); Absolute Neutrophil Count 7.26 10^3/uL (1.2-6.7); Basophils % 0.6; HCT 26.8 % (40.0-50.0); HGB 8.5 g/dL (13.5-17.5); Immature Grans % 0.4; Lymphocytes % 12.8; MCH 30.4 pg (27.0-33.0); MCHC 31.7 % (32.0-36.0); MCV 96 fL (80-95); MPV 9.3 fL (8.0-11.0); Neutrophils % 74.2; Platelet Count 308 10^3/uL (130-400); RDW 15.2 % (11.8-14.1); RDW-SD 52.8 fL; WBC 9.79 10^3/uL (4.4-10.8)
[2023-08-04 09:23] LABS: ALT 46 U/L (16-63); AST 44 U/L (15-37); Albumin 2.8 g/dL (3.4-5.0); Alkaline Phosphatase 163 U/L (46-116); Anion Gap 10.2 mmol/L (3-11); BUN 30 mg/dL (7-18); Bilirubin, Total 0.4 mg/dL (0.2-1.0); CO2 25.8 mmol/L (21.0-32.0); CREATININE 1.7 mg/dL (0.70-1.30); Calcium 8.6 mg/dL (8.5-10.1); Chloride 104 mmol/L (98-107); Estimated GFR 41.01 (mL/min/1.73m2); Glucose 172 mg/dL (74-106); Potassium 4.1 mmol/L (3.5-5.1); Sodium 140 mmol/L (136-145); TSH 2.59 uIU/Ml (0.36-3.74); Total Protein 6.5 g/dL (6.4-8.2)
[2023-08-18] MEDS: Normal Saline Flush 10 ML SYR IVP (07:43)
[2023-08-18 08:38] LABS: Abs Immature Grans 0.04 10^3/uL (0.0-0.06); Absolute Basophil Count 0.09 10^3/uL (0.0-0.2); Absolute Eosinophil Count 0.17 10^3/uL (0.0-0.7); Absolute Lymphocyte Count 1.28 10^3/uL (1.2-3.4); Absolute Monocyte Count 1.04 10^3/uL (0.1-0.8); Absolute Neutrophil Count 7.94 10^3/uL (1.2-6.7); Basophils % 0.9; Eosinophils % 1.6; HCT 28.1 % (40.0-50.0); HGB 9.2 g/dL (13.5-17.5); Immature Grans % 0.4; Lymphocytes % 12.1; MCH 30.7 pg (27.0-33.0); MCHC 32.7 % (32.0-36.0); MCV 94 fL (80-95); MPV 10.1 fL (8.0-11.0); Monocytes % 9.8; Neutrophils % 75.2; Platelet Count 342 10^3/uL (130-400); RDW 15.8 % (11.8-14.1); RDW-SD 53.4 fL; WBC 10.56 10^3/uL (4.4-10.8)
[2023-08-18 09:02] LABS: ALT 45 U/L (16-63); AST 41 U/L (15-37); Albumin 3.1 g/dL (3.4-5.0); Alkaline Phosphatase 163 U/L (46-116); Anion Gap 8.7 mmol/L (3-11); BUN 36 mg/dL (7-18); Bilirubin, Total 0.3 mg/dL (0.2-1.0); CO2 28.3 mmol/L (21.0-32.0); CREATININE 1.7 mg/dL (0.70-1.30); Calcium 8.6 mg/dL (8.5-10.1); Chloride 104 mmol/L (98-107); Estimated GFR 41.01 (mL/min/1.73m2); FREE T4 0.88 ng/dL (0.76-1.46); Glucose 161 mg/dL (74-106); Sodium 141 mmol/L (136-145); TSH 3.54 uIU/Ml (0.36-3.74); Total Protein 6.9 g/dL (6.4-8.2)
[2023-08-25] MEDS: Normal Saline Flush 10 ML SYR IVP (08:06)
[2023-08-25 08:40] LABS: Abs Immature Grans 0.03 10^3/uL (0.0-0.06); Absolute Basophil Count 0.06 10^3/uL (0.0-0.2); Absolute Eosinophil Count 0.15 10^3/uL (0.0-0.7); Absolute Lymphocyte Count 1.28 10^3/uL (1.2-3.4); Absolute Monocyte Count 1.05 10^3/uL (0.1-0.8); Absolute Neutrophil Count 7.09 10^3/uL (1.2-6.7); Basophils % 0.6; Eosinophils % 1.6; HGB 9.3 g/dL (13.5-17.5); Immature Grans % 0.3; Lymphocytes % 13.3; MCH 30.1 pg (27.0-33.0); MCHC 32.1 % (32.0-36.0); MCV 94 fL (80-95); MPV 9.5 fL (8.0-11.0); Monocytes % 10.9; Neutrophils % 73.3; Platelet Count 354 10^3/uL (130-400); RBC 3.09 10^6/uL (4.36-5.78); RDW 15.7 % (11.8-14.1); RDW-SD 53.4 fL; WBC 9.66 10^3/uL (4.4-10.8)
[2023-08-25 09:03] LABS: ALT 45 U/L (16-63); AST 36 U/L (15-37); Albumin 3.1 g/dL (3.4-5.0); Alkaline Phosphatase 162 U/L (46-116); Anion Gap 10.1 mmol/L (3-11); BUN 34 mg/dL (7-18); Bilirubin, Total 0.4 mg/dL (0.2-1.0); CO2 26.9 mmol/L (21.0-32.0); CREATININE 1.8 mg/dL (0.70-1.30); Calcium 8.6 mg/dL (8.5-10.1); Chloride 103 mmol/L (98-107); Estimated GFR 38.29 (mL/min/1.73m2); FREE T4 0.88 ng/dL (0.76-1.46); Glucose 186 mg/dL (74-106); Potassium 4.1 mmol/L (3.5-5.1); Sodium 140 mmol/L (136-145); TSH 3.46 uIU/Ml (0.36-3.74); Total Protein 6.9 g/dL (6.4-8.2)
== END 2023-09-01 23:59 | disposition home or self-care (01) ==
LOC: INF 04:41
PROVIDERS: Visit Provider Internal Medicine
DX: C79.10 Secondary malignant neoplasm of unspecified urinary organs (principal); R94.6 Abnormal results of thyroid function studies; Z45.2 Encounter for adjustment and management of vascular access device
CPT/HCPCS: 36591; 80053; 84439; 84443; 85025

== ENCOUNTER 2023-09-29 01:12 | Outpatient (RCR) | payer MEDICARE, BC, SELFPAY ==
[2023-09-08] MEDS: Normal Saline Flush 10 ML SYR IVP (08:49)
[2023-09-08 09:10] LABS: Abs Immature Grans 0.03 10^3/uL (0.0-0.06); Absolute Basophil Count 0.06 10^3/uL (0.0-0.2); Absolute Eosinophil Count 0.13 10^3/uL (0.0-0.7); Absolute Lymphocyte Count 1.11 10^3/uL (1.2-3.4); Absolute Monocyte Count 1.03 10^3/uL (0.1-0.8); Basophils % 0.7 %; Eosinophils % 1.6 %; HCT 28.6 % (40.0-50.0); HGB 9.1 g/dL (13.5-17.5); Immature Grans % 0.4 %; Lymphocytes % 13.8 %; MCHC 31.8 % (32.0-36.0); MCV 94 fL (80-95); MPV 9.5 fL (8.0-11.0); Monocytes % 12.8 %; Neutrophils % 70.7 %; Platelet Count 316 10^3/uL (130-400); RBC 3.03 10^6/uL (4.36-5.78); RDW 15.7 % (11.8-14.1); RDW-SD 54.1 fL; WBC 8.06 10^3/uL (4.4-10.8)
[2023-09-08 09:36] LABS: ALT 46 U/L (16-63); AST 42 U/L (15-37); Albumin 3.1 g/dL (3.4-5.0); Alkaline Phosphatase 150 U/L (46-116); Anion Gap 7.1 mmol/L (3-11); BUN 32 mg/dL (7-18); Bilirubin, Total 0.3 mg/dL (0.2-1.0); CO2 27.9 mmol/L (21.0-32.0); CREATININE 1.7 mg/dL (0.70-1.30); Calcium 8.6 mg/dL (8.5-10.1); Chloride 106 mmol/L (98-107); Estimated GFR 41.01 (mL/min/1.73m2); FREE T4 1.02 ng/dL (0.76-1.46); Glucose 108 mg/dL (74-106); Sodium 141 mmol/L (136-145); TSH 3.69 uIU/Ml (0.36-3.74)
[2023-09-15 08:52] LABS: Abs Immature Grans 0.03 10^3/uL (0.0-0.06); Absolute Basophil Count 0.06 10^3/uL (0.0-0.2); Absolute Eosinophil Count 0.18 10^3/uL (0.0-0.7); Absolute Lymphocyte Count 1.14 10^3/uL (1.2-3.4); Absolute Monocyte Count 1.02 10^3/uL (0.1-0.8); Absolute Neutrophil Count 7.48 10^3/uL (1.2-6.7); Basophils % 0.6 %; Eosinophils % 1.8 %; HCT 28.2 % (40.0-50.0); Immature Grans % 0.3 %; Lymphocytes % 11.5 %; MCH 30.1 pg (27.0-33.0); MCHC 31.9 % (32.0-36.0); MCV 94 fL (80-95); MPV 9.4 fL (8.0-11.0); Monocytes % 10.3 %; Neutrophils % 75.5 %; Platelet Count 327 10^3/uL (130-400); RBC 2.99 10^6/uL (4.36-5.78); RDW-SD 54.7 fL; WBC 9.91 10^3/uL (4.4-10.8)
[2023-09-15] MEDS: Normal Saline Flush 10 ML SYR IVP (09:21)
[2023-09-15 09:26] LABS: ALT 47 U/L (16-63); AST 42 U/L (15-37); Alkaline Phosphatase 146 U/L (46-116); Anion Gap 7.1 mmol/L (3-11); BUN 35 mg/dL (7-18); Bilirubin, Total 0.4 mg/dL (0.2-1.0); CO2 28.9 mmol/L (21.0-32.0); CREATININE 1.6 mg/dL (0.70-1.30); Calcium 8.5 mg/dL (8.5-10.1); Chloride 106 mmol/L (98-107); FREE T4 0.83 ng/dL (0.76-1.46); Glucose 131 mg/dL (74-106); Potassium 4.3 mmol/L (3.5-5.1); Sodium 142 mmol/L (136-145); TSH 2.64 uIU/Ml (0.36-3.74); Total Protein 6.7 g/dL (6.4-8.2)
[2023-09-29] MEDS: Normal Saline Flush 10 ML SYR IVP (09:22)
[2023-09-29 09:53] LABS: Abs Immature Grans 0.03 10^3/uL (0.0-0.06); Absolute Basophil Count 0.08 10^3/uL (0.0-0.2); Absolute Eosinophil Count 0.21 10^3/uL (0.0-0.7); Absolute Lymphocyte Count 1.25 10^3/uL (1.2-3.4); Absolute Monocyte Count 0.87 10^3/uL (0.1-0.8); Absolute Neutrophil Count 5.89 10^3/uL (1.2-6.7); Eosinophils % 2.5 %; HCT 28.7 % (40.0-50.0); HGB 9.6 g/dL (13.5-17.5); Immature Grans % 0.4 %; MCHC 33.4 % (32.0-36.0); MCV 93 fL (80-95); MPV 9.5 fL (8.0-11.0); Monocytes % 10.4 %; Neutrophils % 70.7 %; Platelet Count 301 10^3/uL (130-400); RDW 16.1 % (11.8-14.1); RDW-SD 54.4 fL; WBC 8.33 10^3/uL (4.4-10.8)
[2023-09-29 10:26] LABS: ALT 48 U/L (16-63); AST 46 U/L (15-37); Albumin 3.1 g/dL (3.4-5.0); Alkaline Phosphatase 153 U/L (46-116); Anion Gap 7.7 mmol/L (3-11); BUN 32 mg/dL (7-18); Bilirubin, Total 0.3 mg/dL (0.2-1.0); CO2 28.3 mmol/L (21.0-32.0); CREATININE 1.6 mg/dL (0.70-1.30); Calcium 8.5 mg/dL (8.5-10.1); Chloride 106 mmol/L (98-107); FREE T4 0.83 ng/dL (0.76-1.46); Glucose 96 mg/dL (74-106); Sodium 142 mmol/L (136-145); TSH 3.08 uIU/Ml (0.36-3.74); Total Protein 6.8 g/dL (6.4-8.2)
== END 2023-10-02 23:59 | disposition home or self-care (01) ==
LOC: INF 01:12
PROVIDERS: Visit Provider Internal Medicine
DX: R94.6 Abnormal results of thyroid function studies (principal); C79.10 Secondary malignant neoplasm of unspecified urinary organs; Z45.2 Encounter for adjustment and management of vascular access device
CPT/HCPCS: 36591; 80053; 84439; 84443; 85025

== ENCOUNTER 2023-10-27 02:21 | Outpatient (RCR) | payer MEDICARE, BC, SELFPAY ==
[2023-10-06 10:15] LABS: Abs Immature Grans 0.04 10^3/uL (0.0-0.06); Absolute Basophil Count 0.07 10^3/uL (0.0-0.2); Absolute Eosinophil Count 0.23 10^3/uL (0.0-0.7); Absolute Lymphocyte Count 1.29 10^3/uL (1.2-3.4); Absolute Monocyte Count 1.01 10^3/uL (0.1-0.8); Absolute Neutrophil Count 5.82 10^3/uL (1.2-6.7); Basophils % 0.8 %; Eosinophils % 2.7 %; HCT 30.2 % (40.0-50.0); HGB 9.9 g/dL (13.5-17.5); Immature Grans % 0.5 %; Lymphocytes % 15.2 %; MCH 30.7 pg (27.0-33.0); MCHC 32.8 % (32.0-36.0); MCV 94 fL (80-95); MPV 9.3 fL (8.0-11.0); Monocytes % 11.9 %; Neutrophils % 68.9 %; Nucleated RBC 0.2 % (0.0-0.3); Platelet Count 324 10^3/uL (130-400); RBC 3.22 10^6/uL (4.36-5.78); RDW 15.7 % (11.8-14.1); WBC 8.46 10^3/uL (4.4-10.8)
[2023-10-06] MEDS: Normal Saline Flush 10 ML SYR IVP (10:21)
[2023-10-06 10:49] LABS: ALT 50 U/L (16-63); AST 42 U/L (15-37); Albumin 3.3 g/dL (3.4-5.0); Alkaline Phosphatase 159 U/L (46-116); BUN 37 mg/dL (7-18); Bilirubin, Total 0.5 mg/dL (0.2-1.0); CREATININE 1.8 mg/dL (0.70-1.30); Calcium 8.6 mg/dL (8.5-10.1); Chloride 105 mmol/L (98-107); Estimated GFR 38.29 (mL/min/1.73m2); FREE T4 0.81 ng/dL (0.76-1.46); Glucose 111 mg/dL (74-106); Potassium 4.2 mmol/L (3.5-5.1); Sodium 141 mmol/L (136-145); TSH 3.19 uIU/Ml (0.36-3.74)
[2023-10-20] MEDS: Normal Saline Flush 10 ML SYR IVP (08:36)
[2023-10-20 09:01] LABS: Abs Immature Grans 0.04 10^3/uL (0.0-0.06); Absolute Basophil Count 0.05 10^3/uL (0.0-0.2); Absolute Eosinophil Count 0.15 10^3/uL (0.0-0.7); Absolute Lymphocyte Count 1.21 10^3/uL (1.2-3.4); Absolute Monocyte Count 0.76 10^3/uL (0.1-0.8); Basophils % 0.6 %; Eosinophils % 1.7 %; HCT 28.8 % (40.0-50.0); HGB 9.3 g/dL (13.5-17.5); Immature Grans % 0.4 %; Lymphocytes % 13.4 %; MCH 30.9 pg (27.0-33.0); MCHC 32.3 % (32.0-36.0); MCV 96 fL (80-95); MPV 9.5 fL (8.0-11.0); Monocytes % 8.4 %; Neutrophils % 75.5 %; Platelet Count 265 10^3/uL (130-400); RBC 3.01 10^6/uL (4.36-5.78); RDW 15.9 % (11.8-14.1); RDW-SD 55.4 fL; WBC 9.01 10^3/uL (4.4-10.8)
[2023-10-20 09:27] LABS: ALT 48 U/L (16-63); AST 43 U/L (15-37); Alkaline Phosphatase 146 U/L (46-116); Anion Gap 5.5 mmol/L (3-11); BUN 28 mg/dL (7-18); Bilirubin, Total 0.3 mg/dL (0.2-1.0); CO2 29.5 mmol/L (21.0-32.0); CREATININE 1.7 mg/dL (0.70-1.30); Calcium 8.5 mg/dL (8.5-10.1); Chloride 105 mmol/L (98-107); Estimated GFR 41.01 (mL/min/1.73m2); FREE T4 0.89 ng/dL (0.76-1.46); Glucose 126 mg/dL (74-106); Potassium 4.3 mmol/L (3.5-5.1); Sodium 140 mmol/L (136-145); TSH 4.23 uIU/Ml (0.36-3.74); Total Protein 6.5 g/dL (6.4-8.2)
[2023-10-27] MEDS: Normal Saline Flush 10 ML SYR IVP (08:13)
[2023-10-27 08:49] LABS: Abs Immature Grans 0.04 10^3/uL (0.0-0.06); Absolute Basophil Count 0.06 10^3/uL (0.0-0.2); Absolute Eosinophil Count 0.18 10^3/uL (0.0-0.7); Absolute Lymphocyte Count 0.91 10^3/uL (1.2-3.4); Absolute Monocyte Count 0.75 10^3/uL (0.1-0.8); Absolute Neutrophil Count 7.26 10^3/uL (1.2-6.7); Basophils % 0.7 %; HCT 29.9 % (40.0-50.0); HGB 9.6 g/dL (13.5-17.5); Immature Grans % 0.4 %; Lymphocytes % 9.9 %; MCH 30.8 pg (27.0-33.0); MCHC 32.1 % (32.0-36.0); MCV 96 fL (80-95); MPV 10.1 fL (8.0-11.0); Monocytes % 8.2 %; Neutrophils % 78.8 %; Platelet Count 290 10^3/uL (130-400); RBC 3.12 10^6/uL (4.36-5.78); RDW 15.6 % (11.8-14.1)
[2023-10-27 09:13] LABS: ALT 46 U/L (16-63); AST 37 U/L (15-37); Alkaline Phosphatase 149 U/L (46-116); Anion Gap 8.1 mmol/L (3-11); BUN 28 mg/dL (7-18); Bilirubin, Total 0.39 mg/dL (0.2-1.0); CO2 27.9 mmol/L (21.0-32.0); CREATININE 1.7 mg/dL (0.70-1.30); Calcium 8.4 mg/dL (8.5-10.1); Chloride 104 mmol/L (98-107); Estimated GFR 41.01 (mL/min/1.73m2); FREE T4 0.87 ng/dL (0.76-1.46); Glucose 174 mg/dL (74-106); Potassium 3.8 mmol/L (3.5-5.1); Sodium 140 mmol/L (136-145); TSH 2.97 uIU/Ml (0.36-3.74); Total Protein 6.3 g/dL (6.4-8.2)
== END 2023-11-01 23:59 | disposition home or self-care (01) ==
LOC: INF 02:21
PROVIDERS: Visit Provider Internal Medicine
DX: R94.6 Abnormal results of thyroid function studies (principal); C79.10 Secondary malignant neoplasm of unspecified urinary organs; Z45.2 Encounter for adjustment and management of vascular access device
CPT/HCPCS: 36591; 80053; 84439; 84443; 85025

== ENCOUNTER 2023-12-01 03:06 | Outpatient (RCR) | payer MEDICARE, BC, SELFPAY ==
[2023-11-10] MEDS: Normal Saline Flush 10 ML SYR IVP (10:55)
[2023-11-10 10:57] LABS: Abs Immature Grans 0.02 10^3/uL (0.0-0.06); Absolute Basophil Count 0.07 10^3/uL (0.0-0.2); Absolute Eosinophil Count 0.16 10^3/uL (0.0-0.7); Absolute Lymphocyte Count 1.19 10^3/uL (1.2-3.4); Absolute Monocyte Count 0.89 10^3/uL (0.1-0.8); Absolute Neutrophil Count 5.12 10^3/uL (1.2-6.7); Basophils % 0.9 %; Eosinophils % 2.1 %; HCT 29.8 % (40.0-50.0); HGB 9.8 g/dL (13.5-17.5); Immature Grans % 0.3 %; MCH 31.2 pg (27.0-33.0); MCHC 32.9 % (32.0-36.0); MCV 95 fL (80-95); MPV 9.9 fL (8.0-11.0); Monocytes % 11.9 %; Neutrophils % 68.8 %; Platelet Count 289 10^3/uL (130-400); RBC 3.14 10^6/uL (4.36-5.78); RDW 15.6 % (11.8-14.1); RDW-SD 53.4 fL; WBC 7.45 10^3/uL (4.4-10.8)
[2023-11-10 11:28] LABS: ALT 60 U/L (16-63); AST 51 U/L (15-37); Albumin 3.2 g/dL (3.4-5.0); Alkaline Phosphatase 155 U/L (46-116); Anion Gap 5.1 mmol/L (3-11); BUN 36 mg/dL (7-18); Bilirubin, Total 0.42 mg/dL (0.2-1.0); CO2 29.9 mmol/L (21.0-32.0); CREATININE 1.6 mg/dL (0.70-1.30); Calcium 8.7 mg/dL (8.5-10.1); Chloride 106 mmol/L (98-107); FREE T4 0.83 ng/dL (0.76-1.46); Glucose 98 mg/dL (74-106); Potassium 4.4 mmol/L (3.5-5.1); Sodium 141 mmol/L (136-145); Total Protein 6.8 g/dL (6.4-8.2)
[2023-11-17] MEDS: Normal Saline Flush 10 ML SYR IVP (08:40)
[2023-11-17 08:47] LABS: Abs Immature Grans 0.03 10^3/uL (0.0-0.06); Absolute Basophil Count 0.06 10^3/uL (0.0-0.2); Absolute Eosinophil Count 0.25 10^3/uL (0.0-0.7); Absolute Lymphocyte Count 1.17 10^3/uL (1.2-3.4); Absolute Monocyte Count 0.86 10^3/uL (0.1-0.8); Absolute Neutrophil Count 5.59 10^3/uL (1.2-6.7); Basophils % 0.8 %; Eosinophils % 3.1 %; HCT 30.4 % (40.0-50.0); HGB 9.9 g/dL (13.5-17.5); Immature Grans % 0.4 %; Lymphocytes % 14.7 %; MCHC 32.6 % (32.0-36.0); MCV 95 fL (80-95); MPV 9.6 fL (8.0-11.0); Monocytes % 10.8 %; Neutrophils % 70.2 %; Platelet Count 291 10^3/uL (130-400); RBC 3.19 10^6/uL (4.36-5.78); RDW 15.3 % (11.8-14.1); RDW-SD 53.5 fL; WBC 7.96 10^3/uL (4.4-10.8)
[2023-11-17 09:12] LABS: ALT 61 U/L (16-63); AST 45 U/L (15-37); Albumin 3.3 g/dL (3.4-5.0); Alkaline Phosphatase 164 U/L (46-116); BUN 38 mg/dL (7-18); Bilirubin, Total 0.41 mg/dL (0.2-1.0); CREATININE 1.7 mg/dL (0.70-1.30); Calcium 8.6 mg/dL (8.5-10.1); Chloride 106 mmol/L (98-107); Estimated GFR 41.01 (mL/min/1.73m2); FREE T4 0.89 ng/dL (0.76-1.46); Glucose 131 mg/dL (74-106); Potassium 3.8 mmol/L (3.5-5.1); Sodium 141 mmol/L (136-145); TSH 3.35 uIU/Ml (0.36-3.74); Total Protein 6.8 g/dL (6.4-8.2)
[2023-12-01] MEDS: Normal Saline Flush 10 ML SYR IVP (09:15)
[2023-12-01 09:42] LABS: Abs Immature Grans 0.03 10^3/uL (0.0-0.06); Absolute Basophil Count 0.04 10^3/uL (0.0-0.2); Absolute Eosinophil Count 0.18 10^3/uL (0.0-0.7); Absolute Lymphocyte Count 1.06 10^3/uL (1.2-3.4); Absolute Monocyte Count 0.76 10^3/uL (0.1-0.8); Absolute Neutrophil Count 5.58 10^3/uL (1.2-6.7); Basophils % 0.5 %; Eosinophils % 2.4 %; HCT 29.4 % (40.0-50.0); HGB 9.4 g/dL (13.5-17.5); Immature Grans % 0.4 %; Lymphocytes % 13.9 %; MCV 97 fL (80-95); MPV 9.7 fL (8.0-11.0); Monocytes % 9.9 %; Neutrophils % 72.9 %; Platelet Count 242 10^3/uL (130-400); RBC 3.03 10^6/uL (4.36-5.78); RDW 15.4 % (11.8-14.1); RDW-SD 54.4 fL; WBC 7.65 10^3/uL (4.4-10.8)
[2023-12-01 10:11] LABS: ALT 53 U/L (16-63); AST 45 U/L (15-37); Alkaline Phosphatase 142 U/L (46-116); Anion Gap 8.4 mmol/L (3-11); BUN 31 mg/dL (7-18); Bilirubin, Total 0.38 mg/dL (0.2-1.0); CO2 28.6 mmol/L (21.0-32.0); CREATININE 1.5 mg/dL (0.70-1.30); Calcium 8.3 mg/dL (8.5-10.1); Chloride 108 mmol/L (98-107); Estimated GFR 47.65 (mL/min/1.73m2); Glucose 131 mg/dL (74-106); Potassium 4.2 mmol/L (3.5-5.1); Sodium 145 mmol/L (136-145); TSH 3.21 uIU/Ml (0.36-3.74); Total Protein 6.2 g/dL (6.4-8.2)
== END 2023-12-02 23:59 | disposition home or self-care (01) ==
LOC: INF 03:06
PROVIDERS: Visit Provider Internal Medicine
DX: R94.6 Abnormal results of thyroid function studies (principal); C79.10 Secondary malignant neoplasm of unspecified urinary organs; Z45.2 Encounter for adjustment and management of vascular access device
CPT/HCPCS: 36591; 80053; 84439; 84443; 85025

== ENCOUNTER 2023-12-29 02:35 | Outpatient (RCR) | payer MEDICARE, BC, SELFPAY ==
[2023-12-08] MEDS: Normal Saline Flush 10 ML SYR IVP (10:34)
[2023-12-08 11:29] LABS: Abs Immature Grans 0.02 10^3/uL (0.0-0.06); Absolute Basophil Count 0.05 10^3/uL (0.0-0.2); Absolute Eosinophil Count 0.16 10^3/uL (0.0-0.7); Absolute Lymphocyte Count 0.79 10^3/uL (1.2-3.4); Absolute Monocyte Count 0.88 10^3/uL (0.1-0.8); Basophils % 0.7 %; Eosinophils % 2.3 %; HCT 29.8 % (40.0-50.0); HGB 10.1 g/dL (13.5-17.5); Immature Grans % 0.3 %; Lymphocytes % 11.3 %; MCH 31.5 pg (27.0-33.0); MCHC 33.9 % (32.0-36.0); MCV 93 fL (80-95); MPV 9.7 fL (8.0-11.0); Monocytes % 12.6 %; Neutrophils % 72.8 %; Platelet Count 316 10^3/uL (130-400); RBC 3.21 10^6/uL (4.36-5.78); RDW-SD 51.3 fL
[2023-12-08 11:53] LABS: ALT 53 U/L (16-63); AST 43 U/L (15-37); Albumin 3.2 g/dL (3.4-5.0); Alkaline Phosphatase 164 U/L (46-116); Anion Gap 6.7 mmol/L (3-11); BUN 35 mg/dL (7-18); Bilirubin, Total 0.49 mg/dL (0.2-1.0); CO2 29.3 mmol/L (21.0-32.0); CREATININE 1.9 mg/dL (0.70-1.30); Calcium 8.7 mg/dL (8.5-10.1); Chloride 103 mmol/L (98-107); Estimated GFR 35.88 (mL/min/1.73m2); FREE T4 0.87 ng/dL (0.76-1.46); Glucose 165 mg/dL (74-106); Sodium 139 mmol/L (136-145); TSH 2.42 uIU/Ml (0.36-3.74); Total Protein 6.7 g/dL (6.4-8.2)
[2023-12-22] MEDS: Normal Saline Flush 10 ML SYR IVP (08:58)
[2023-12-22 09:19] LABS: Abs Immature Grans 0.03 10^3/uL (0.0-0.06); Absolute Basophil Count 0.04 10^3/uL (0.0-0.2); Absolute Eosinophil Count 0.09 10^3/uL (0.0-0.7); Absolute Lymphocyte Count 1.05 10^3/uL (1.2-3.4); Absolute Monocyte Count 0.72 10^3/uL (0.1-0.8); Absolute Neutrophil Count 6.15 10^3/uL (1.2-6.7); Basophils % 0.5 %; Eosinophils % 1.1 %; HCT 29.8 % (40.0-50.0); HGB 9.4 g/dL (13.5-17.5); Immature Grans % 0.4 %; MCH 30.5 pg (27.0-33.0); MCHC 31.5 % (32.0-36.0); MCV 97 fL (80-95); Monocytes % 8.9 %; Neutrophils % 76.1 %; Platelet Count 261 10^3/uL (130-400); RBC 3.08 10^6/uL (4.36-5.78); RDW 15.1 % (11.8-14.1); RDW-SD 53.4 fL; WBC 8.08 10^3/uL (4.4-10.8)
[2023-12-22 09:40] LABS: ALT 49 U/L (16-63); AST 44 U/L (15-37); Albumin 3.1 g/dL (3.4-5.0); Alkaline Phosphatase 157 U/L (46-116); Anion Gap 5.9 mmol/L (3-11); BUN 33 mg/dL (7-18); Bilirubin, Total 0.34 mg/dL (0.2-1.0); CO2 28.1 mmol/L (21.0-32.0); CREATININE 1.7 mg/dL (0.70-1.30); Calcium 8.7 mg/dL (8.5-10.1); Chloride 104 mmol/L (98-107); Estimated GFR 41.01 (mL/min/1.73m2); FREE T4 0.98 ng/dL (0.76-1.46); Glucose 147 mg/dL (74-106); Sodium 138 mmol/L (136-145); TSH 2.86 uIU/Ml (0.36-3.74); Total Protein 6.6 g/dL (6.4-8.2)
[2023-12-29] MEDS: Normal Saline Flush 10 ML SYR IVP (09:03)
[2023-12-29 09:22] LABS: Abs Immature Grans 0.02 10^3/uL (0.0-0.06); Absolute Basophil Count 0.05 10^3/uL (0.0-0.2); Absolute Eosinophil Count 0.11 10^3/uL (0.0-0.7); Absolute Lymphocyte Count 0.88 10^3/uL (1.2-3.4); Absolute Monocyte Count 0.76 10^3/uL (0.1-0.8); Absolute Neutrophil Count 5.37 10^3/uL (1.2-6.7); Basophils % 0.7 %; Eosinophils % 1.5 %; HCT 28.8 % (40.0-50.0); HGB 9.4 g/dL (13.5-17.5); Immature Grans % 0.3 %; Lymphocytes % 12.2 %; MCH 31.2 pg (27.0-33.0); MCHC 32.6 % (32.0-36.0); MCV 96 fL (80-95); MPV 9.4 fL (8.0-11.0); Monocytes % 10.6 %; Neutrophils % 74.7 %; Platelet Count 284 10^3/uL (130-400); RBC 3.01 10^6/uL (4.36-5.78); RDW-SD 52.7 fL; WBC 7.19 10^3/uL (4.4-10.8)
[2023-12-29 09:46] LABS: ALT 59 U/L (16-63); AST 53 U/L (15-37); Alkaline Phosphatase 151 U/L (46-116); Anion Gap 6.1 mmol/L (3-11); BUN 36 mg/dL (7-18); Bilirubin, Total 0.39 mg/dL (0.2-1.0); CO2 27.9 mmol/L (21.0-32.0); CREATININE 1.8 mg/dL (0.70-1.30); Calcium 8.4 mg/dL (8.5-10.1); Chloride 104 mmol/L (98-107); Estimated GFR 38.29 (mL/min/1.73m2); Glucose 156 mg/dL (74-106); Potassium 4.5 mmol/L (3.5-5.1); Sodium 138 mmol/L (136-145); TSH 3.64 uIU/Ml (0.36-3.74); Total Protein 6.4 g/dL (6.4-8.2)
[2023-12-29 10:34] LABS: FREE T4 1.01 ng/dL (0.76-1.46)
== END 2024-01-02 23:59 | disposition home or self-care (01) ==
LOC: INF 02:35
PROVIDERS: Visit Provider Internal Medicine
DX: C79.10 Secondary malignant neoplasm of unspecified urinary organs (principal); R94.6 Abnormal results of thyroid function studies
CPT/HCPCS: 36591; 80053; 84439; 84443; 85025

== ENCOUNTER 2024-01-19 01:31 | Outpatient (RCR) | payer MEDICARE, BC, SELFPAY ==
[2024-01-12] MEDS: Normal Saline Flush 10 ML SYR IVP (09:50)
[2024-01-12 09:58] LABS: Abs Immature Grans 0.01 10^3/uL (0.0-0.06); Absolute Basophil Count 0.03 10^3/uL (0.0-0.2); Absolute Eosinophil Count 0.06 10^3/uL (0.0-0.7); Absolute Lymphocyte Count 1.05 10^3/uL (1.2-3.4); Absolute Monocyte Count 0.72 10^3/uL (0.1-0.8); Absolute Neutrophil Count 4.79 10^3/uL (1.2-6.7); Basophils % 0.5 %; Eosinophils % 0.9 %; HCT 30.6 % (40.0-50.0); Immature Grans % 0.2 %; Lymphocytes % 15.8 %; MCHC 32.7 % (32.0-36.0); MCV 95 fL (80-95); MPV 9.7 fL (8.0-11.0); Monocytes % 10.8 %; Neutrophils % 71.8 %; Platelet Count 271 10^3/uL (130-400); RBC 3.23 10^6/uL (4.36-5.78); RDW 15.1 % (11.8-14.1); RDW-SD 52.3 fL; WBC 6.66 10^3/uL (4.4-10.8)
[2024-01-12 10:26] LABS: ALT 54 U/L (16-63); AST 63 U/L (15-37); Alkaline Phosphatase 137 U/L (46-116); Anion Gap 7.7 mmol/L (3-11); BUN 34 mg/dL (7-18); Bilirubin, Total 0.47 mg/dL (0.2-1.0); CO2 28.3 mmol/L (21.0-32.0); CREATININE 1.6 mg/dL (0.70-1.30); Calcium 8.8 mg/dL (8.5-10.1); Chloride 105 mmol/L (98-107); Glucose 123 mg/dL (74-106); Potassium 3.7 mmol/L (3.5-5.1); Sodium 141 mmol/L (136-145); TSH 3.12 uIU/Ml (0.36-3.74); Total Protein 6.8 g/dL (6.4-8.2)
[2024-01-19] MEDS: Normal Saline Flush 10 ML SYR IVP (08:07)
[2024-01-19 08:10] LABS: Abs Immature Grans 0.03 10^3/uL (0.0-0.06); Absolute Basophil Count 0.03 10^3/uL (0.0-0.2); Absolute Eosinophil Count 0.11 10^3/uL (0.0-0.7); Absolute Lymphocyte Count 1.22 10^3/uL (1.2-3.4); Absolute Neutrophil Count 5.27 10^3/uL (1.2-6.7); Basophils % 0.4 %; Eosinophils % 1.5 %; HCT 30.5 % (40.0-50.0); HGB 9.8 g/dL (13.5-17.5); Immature Grans % 0.4 %; Lymphocytes % 16.4 %; MCHC 32.1 % (32.0-36.0); MCV 97 fL (80-95); MPV 9.3 fL (8.0-11.0); Monocytes % 10.7 %; Neutrophils % 70.6 %; Platelet Count 308 10^3/uL (130-400); RBC 3.16 10^6/uL (4.36-5.78); RDW-SD 53.7 fL; WBC 7.46 10^3/uL (4.4-10.8)
[2024-01-19 08:35] LABS: ALT 48 U/L (16-63); AST 47 U/L (15-37); Albumin 2.9 g/dL (3.4-5.0); Alkaline Phosphatase 145 U/L (46-116); Anion Gap 8.1 mmol/L (3-11); BUN 29 mg/dL (7-18); CO2 26.9 mmol/L (21.0-32.0); CREATININE 1.7 mg/dL (0.70-1.30); Calcium 8.7 mg/dL (8.5-10.1); Chloride 104 mmol/L (98-107); Estimated GFR 41.01 (mL/min/1.73m2); FREE T4 0.93 ng/dL (0.76-1.46); Glucose 179 mg/dL (74-106); Potassium 4.1 mmol/L (3.5-5.1); Sodium 139 mmol/L (136-145); TSH 3.32 uIU/Ml (0.36-3.74); Total Protein 6.5 g/dL (6.4-8.2)
== END 2024-02-01 23:59 | disposition home or self-care (01) ==
LOC: INF 01:31
PROVIDERS: Nurse Practitioner; Visit Provider Internal Medicine
DX: C79.10 Secondary malignant neoplasm of unspecified urinary organs (principal); R94.6 Abnormal results of thyroid function studies
CPT/HCPCS: 36591; 80053; 84439; 84443; 85025

== ENCOUNTER 2024-03-01 01:53 | Outpatient (RCR) | payer MEDICARE, BC, SELFPAY ==
[2024-02-02] MEDS: Normal Saline Flush 10 ML SYR IVP (08:41)
[2024-02-02 08:58] LABS: Abs Immature Grans 0.02 10^3/uL (0.0-0.06); Absolute Basophil Count 0.06 10^3/uL (0.0-0.2); Absolute Lymphocyte Count 0.94 10^3/uL (1.2-3.4); Absolute Monocyte Count 0.73 10^3/uL (0.1-0.8); Absolute Neutrophil Count 5.01 10^3/uL (1.2-6.7); Basophils % 0.9 %; Eosinophils % 1.5 %; HCT 30.5 % (40.0-50.0); HGB 9.8 g/dL (13.5-17.5); Immature Grans % 0.3 %; Lymphocytes % 13.7 %; MCH 31.5 pg (27.0-33.0); MCHC 32.1 % (32.0-36.0); MCV 98 fL (80-95); MPV 9.3 fL (8.0-11.0); Monocytes % 10.6 %; Platelet Count 255 10^3/uL (130-400); RBC 3.11 10^6/uL (4.36-5.78); RDW 15.3 % (11.8-14.1); RDW-SD 54.4 fL; WBC 6.86 10^3/uL (4.4-10.8)
[2024-02-02 09:23] LABS: ALT 48 U/L (16-63); AST 50 U/L (15-37); Alkaline Phosphatase 146 U/L (46-116); Anion Gap 5.8 mmol/L (3-11); BUN 29 mg/dL (7-18); Bilirubin, Total 0.36 mg/dL (0.2-1.0); CO2 28.2 mmol/L (21.0-32.0); CREATININE 1.6 mg/dL (0.70-1.30); Calcium 8.7 mg/dL (8.5-10.1); Chloride 103 mmol/L (98-107); FREE T4 0.89 ng/dL (0.76-1.46); Glucose 166 mg/dL (74-106); Potassium 3.9 mmol/L (3.5-5.1); Sodium 137 mmol/L (136-145); TSH 4.36 uIU/Ml (0.36-3.74); Total Protein 6.7 g/dL (6.4-8.2)
[2024-02-09] MEDS: Normal Saline Flush 10 ML SYR IVP (08:17)
[2024-02-09 08:26] LABS: Abs Immature Grans 0.05 10^3/uL (0.0-0.06); Absolute Basophil Count 0.08 10^3/uL (0.0-0.2); Absolute Eosinophil Count 0.16 10^3/uL (0.0-0.7); Absolute Lymphocyte Count 1.05 10^3/uL (1.2-3.4); Absolute Monocyte Count 1.17 10^3/uL (0.1-0.8); Eosinophils % 1.9 %; HCT 30.8 % (40.0-50.0); HGB 9.9 g/dL (13.5-17.5); Immature Grans % 0.6 %; Lymphocytes % 12.6 %; MCH 31.3 pg (27.0-33.0); MCHC 32.1 % (32.0-36.0); MCV 98 fL (80-95); MPV 9.2 fL (8.0-11.0); Monocytes % 14.1 %; Neutrophils % 69.8 %; Platelet Count 299 10^3/uL (130-400); RBC 3.16 10^6/uL (4.36-5.78); RDW 15.2 % (11.8-14.1); RDW-SD 53.5 fL; WBC 8.31 10^3/uL (4.4-10.8)
[2024-02-09 08:50] LABS: ALT 58 U/L (16-63); AST 55 U/L (15-37); Albumin 3.1 g/dL (3.4-5.0); Alkaline Phosphatase 153 U/L (46-116); Anion Gap 5.4 mmol/L (3-11); BUN 30 mg/dL (7-18); Bilirubin, Total 0.41 mg/dL (0.2-1.0); CO2 28.6 mmol/L (21.0-32.0); CREATININE 1.6 mg/dL (0.70-1.30); Calcium 8.9 mg/dL (8.5-10.1); Chloride 108 mmol/L (98-107); FREE T4 0.89 ng/dL (0.76-1.46); Glucose 109 mg/dL (74-106); Potassium 4.2 mmol/L (3.5-5.1); Sodium 142 mmol/L (136-145); TSH 4.01 uIU/Ml (0.36-3.74)
[2024-02-23] MEDS: Normal Saline Flush 10 ML SYR IVP (10:31)
[2024-02-23 10:46] LABS: Abs Immature Grans 0.03 10^3/uL (0.0-0.06); Absolute Basophil Count 0.06 10^3/uL (0.0-0.2); Absolute Eosinophil Count 0.22 10^3/uL (0.0-0.7); Absolute Lymphocyte Count 1.01 10^3/uL (1.2-3.4); Absolute Monocyte Count 1.17 10^3/uL (0.1-0.8); Absolute Neutrophil Count 5.75 10^3/uL (1.2-6.7); Basophils % 0.7 %; Eosinophils % 2.7 %; HCT 27.1 % (40.0-50.0); HGB 8.8 g/dL (13.5-17.5); Immature Grans % 0.4 %; Lymphocytes % 12.3 %; MCH 31.4 pg (27.0-33.0); MCHC 32.5 % (32.0-36.0); MCV 97 fL (80-95); MPV 9.5 fL (8.0-11.0); Monocytes % 14.2 %; Neutrophils % 69.7 %; Platelet Count 226 10^3/uL (130-400); RDW 15.4 % (11.8-14.1); RDW-SD 54.4 fL; WBC 8.24 10^3/uL (4.4-10.8)
[2024-02-23 11:21] LABS: ALT 50 U/L (16-63); AST 48 U/L (15-37); Alkaline Phosphatase 154 U/L (46-116); Anion Gap 4.4 mmol/L (3-11); BUN 33 mg/dL (7-18); Bilirubin, Total 0.45 mg/dL (0.2-1.0); CO2 29.6 mmol/L (21.0-32.0); CREATININE 1.6 mg/dL (0.70-1.30); Calcium 8.8 mg/dL (8.5-10.1); Chloride 105 mmol/L (98-107); FREE T4 0.84 ng/dL (0.76-1.46); Glucose 127 mg/dL (74-106); Potassium 4.4 mmol/L (3.5-5.1); Sodium 139 mmol/L (136-145); TSH 3.66 uIU/mL (0.36-3.74); Total Protein 6.8 g/dL (6.4-8.2)
[2024-03-01] MEDS: Normal Saline Flush 10 ML SYR IVP (07:59)
[2024-03-01 08:13] LABS: Abs Immature Grans 0.03 10^3/uL (0.0-0.06); Absolute Basophil Count 0.06 10^3/uL (0.0-0.2); Absolute Eosinophil Count 0.25 10^3/uL (0.0-0.7); Absolute Lymphocyte Count 0.86 10^3/uL (1.2-3.4); Absolute Monocyte Count 1.08 10^3/uL (0.1-0.8); Absolute Neutrophil Count 6.42 10^3/uL (1.2-6.7); Basophils % 0.7 %; Eosinophils % 2.9 %; HCT 30.2 % (40.0-50.0); HGB 9.8 g/dL (13.5-17.5); Immature Grans % 0.3 %; Lymphocytes % 9.9 %; MCH 30.9 pg (27.0-33.0); MCHC 32.5 % (32.0-36.0); MCV 95 fL (80-95); MPV 9.6 fL (8.0-11.0); Monocytes % 12.4 %; Neutrophils % 73.8 %; Platelet Count 318 10^3/uL (130-400); RBC 3.17 10^6/uL (4.36-5.78); RDW 15.1 % (11.8-14.1); RDW-SD 52.4 fL
[2024-03-01 08:38] LABS: ALT 55 U/L (16-63); AST 51 U/L (15-37); Albumin 3.2 g/dL (3.4-5.0); Alkaline Phosphatase 171 U/L (46-116); Anion Gap 7.2 mmol/L (3-11); BUN 31 mg/dL (7-18); Bilirubin, Total 0.49 mg/dL (0.2-1.0); CO2 28.8 mmol/L (21.0-32.0); CREATININE 1.6 mg/dL (0.70-1.30); Calcium 9.1 mg/dL (8.5-10.1); Chloride 105 mmol/L (98-107); FREE T4 0.95 ng/dL (0.76-1.46); Glucose 170 mg/dL (74-106); Potassium 3.9 mmol/L (3.5-5.1); Sodium 141 mmol/L (136-145); TSH 3.12 uIU/mL (0.36-3.74); Total Protein 7.2 g/dL (6.4-8.2)
[2024-03-01 08:45] LABS: Iron 69 ug/dL (65-175); Total Iron Binding Capacity 390 ug/dL (250-450); Transferrin Sat 18 % (20-55)
[2024-03-01 09:13] LABS: Ferritin 30 ng/mL (26-388); Vitamin B12 783 pg/mL (193-986)
[2024-03-01 09:15] LABS: Folate > 20.0 ng/mL (8.6-20.0)
== END 2024-03-03 23:59 | disposition home or self-care (01) ==
LOC: INF 01:53
PROVIDERS: Nurse Practitioner; Visit Provider Internal Medicine
DX: C79.10 Secondary malignant neoplasm of unspecified urinary organs (principal); R79.89 Other specified abnormal findings of blood chemistry; D64.9 Anemia, unspecified; Z79.899 Other long term (current) drug therapy; Z45.2 Encounter for adjustment and management of vascular access device
CPT/HCPCS: 36591; 80053; 82607; 82728; 82746; 83540; 83550; 84439; 84443; 85025

== ENCOUNTER 2024-03-22 07:30 | Outpatient (RCR) | payer MEDICARE, BC, SELFPAY ==
[2024-03-15] MEDS: Normal Saline Flush 10 ML SYR IVP (08:48)
[2024-03-15 08:59] LABS: Abs Immature Grans 0.02 10^3/uL (0.0-0.06); Absolute Basophil Count 0.05 10^3/uL (0.0-0.2); Absolute Eosinophil Count 0.27 10^3/uL (0.0-0.7); Absolute Lymphocyte Count 0.87 10^3/uL (1.2-3.4); Absolute Neutrophil Count 5.31 10^3/uL (1.2-6.7); Basophils % 0.7 %; Eosinophils % 3.7 %; HCT 28.2 % (40.0-50.0); HGB 9.4 g/dL (13.5-17.5); Immature Grans % 0.3 %; Lymphocytes % 11.9 %; MCH 31.6 pg (27.0-33.0); MCHC 33.3 % (32.0-36.0); MCV 95 fL (80-95); MPV 9.3 fL (8.0-11.0); Monocytes % 10.9 %; Neutrophils % 72.5 %; Platelet Count 276 10^3/uL (130-400); RBC 2.97 10^6/uL (4.36-5.78); RDW 15.3 % (11.8-14.1); RDW-SD 53.1 fL; WBC 7.32 10^3/uL (4.4-10.8)
[2024-03-15 09:26] LABS: ALT 46 U/L (16-63); AST 44 U/L (15-37); Alkaline Phosphatase 163 U/L (46-116); Anion Gap 7.3 mmol/L (3-11); BUN 31 mg/dL (7-18); Bilirubin, Total 0.42 mg/dL (0.2-1.0); CO2 29.7 mmol/L (21.0-32.0); CREATININE 1.6 mg/dL (0.70-1.30); Chloride 107 mmol/L (98-107); FREE T4 0.81 ng/dL (0.76-1.46); Glucose 159 mg/dL (74-106); Potassium 3.8 mmol/L (3.5-5.1); Sodium 144 mmol/L (136-145); TSH 3.23 uIU/mL (0.36-3.74); Total Protein 6.9 g/dL (6.4-8.2)
[2024-03-22 07:48] LABS: Abs Immature Grans 0.02 10^3/uL (0.0-0.06); Absolute Basophil Count 0.05 10^3/uL (0.0-0.2); Absolute Eosinophil Count 0.31 10^3/uL (0.0-0.7); Absolute Lymphocyte Count 1.09 10^3/uL (1.2-3.4); Absolute Monocyte Count 0.85 10^3/uL (0.1-0.8); Absolute Neutrophil Count 5.06 10^3/uL (1.2-6.7); Basophils % 0.7 %; Eosinophils % 4.2 %; HCT 28.7 % (40.0-50.0); HGB 9.2 g/dL (13.5-17.5); Immature Grans % 0.3 %; Lymphocytes % 14.8 %; MCHC 32.1 % (32.0-36.0); MCV 97 fL (80-95); MPV 8.9 fL (8.0-11.0); Monocytes % 11.5 %; Neutrophils % 68.5 %; Platelet Count 287 10^3/uL (130-400); RBC 2.97 10^6/uL (4.36-5.78); RDW 15.1 % (11.8-14.1); RDW-SD 53.4 fL; WBC 7.38 10^3/uL (4.4-10.8)
[2024-03-22] MEDS: Normal Saline Flush 10 ML SYR IVP (07:52)
[2024-03-22 08:12] LABS: ALT 52 U/L (16-63); AST 49 U/L (15-37); Alkaline Phosphatase 172 U/L (46-116); BUN 33 mg/dL (7-18); Bilirubin, Total 0.42 mg/dL (0.2-1.0); CREATININE 1.6 mg/dL (0.70-1.30); Calcium 8.7 mg/dL (8.5-10.1); Chloride 106 mmol/L (98-107); Estimated GFR 43.83 (mL/min/1.73m2); FREE T4 0.88 ng/dL (0.76-1.46); Glucose 131 mg/dL (74-106); Potassium 3.7 mmol/L (3.5-5.1); Sodium 141 mmol/L (136-145); Total Protein 6.9 g/dL (6.4-8.2)
== END 2024-04-02 23:59 | disposition home or self-care (01) ==
LOC: INF 07:30
PROVIDERS: Nurse Practitioner; Visit Provider Internal Medicine
DX: C79.10 Secondary malignant neoplasm of unspecified urinary organs (principal); D64.9 Anemia, unspecified; R79.89 Other specified abnormal findings of blood chemistry; R94.6 Abnormal results of thyroid function studies; Z79.899 Other long term (current) drug therapy; Z45.2 Encounter for adjustment and management of vascular access device
CPT/HCPCS: 36591; 80053; 84439; 84443; 85025

== ENCOUNTER 2024-05-03 01:56 | Outpatient (RCR) | payer MEDICARE, BC, SELFPAY ==
[2024-04-05 10:05] LABS: Abs Immature Grans 0.03 10^3/uL (0.0-0.06); Absolute Basophil Count 0.07 10^3/uL (0.0-0.2); Absolute Eosinophil Count 0.21 10^3/uL (0.0-0.7); Absolute Lymphocyte Count 0.93 10^3/uL (1.2-3.4); Absolute Monocyte Count 0.67 10^3/uL (0.1-0.8); Absolute Neutrophil Count 5.71 10^3/uL (1.2-6.7); Basophils % 0.9 %; Eosinophils % 2.8 %; HCT 27.7 % (40.0-50.0); Immature Grans % 0.4 %; Lymphocytes % 12.2 %; MCH 30.9 pg (27.0-33.0); MCHC 32.5 % (32.0-36.0); MCV 95 fL (80-95); MPV 9.7 fL (8.0-11.0); Monocytes % 8.8 %; Neutrophils % 74.9 %; Platelet Count 258 10^3/uL (130-400); RBC 2.91 10^6/uL (4.36-5.78); RDW 15.4 % (11.8-14.1); RDW-SD 53.2 fL; WBC 7.62 10^3/uL (4.4-10.8)
[2024-04-05] MEDS: Normal Saline Flush 10 ML SYR IVP (10:28)
[2024-04-05 10:39] LABS: ALT 54 U/L (16-63); AST 51 U/L (15-37); Albumin 3.1 g/dL (3.4-5.0); Alkaline Phosphatase 170 U/L (46-116); Anion Gap 8.1 mmol/L (3-11); BUN 32 mg/dL (7-18); Bilirubin, Total 0.36 mg/dL (0.2-1.0); CO2 28.9 mmol/L (21.0-32.0); CREATININE 1.6 mg/dL (0.70-1.30); Calcium 8.5 mg/dL (8.5-10.1); Chloride 106 mmol/L (98-107); Estimated GFR 43.83 (mL/min/1.73m2); FREE T4 0.78 ng/dL (0.76-1.46); Glucose 174 mg/dL (74-106); Sodium 143 mmol/L (136-145); Total Protein 6.7 g/dL (6.4-8.2)
[2024-04-12] MEDS: Normal Saline Flush 10 ML SYR IVP (07:42)
[2024-04-12 08:07] LABS: Abs Immature Grans 0.02 10^3/uL (0.0-0.06); Absolute Basophil Count 0.06 10^3/uL (0.0-0.2); Absolute Eosinophil Count 0.24 10^3/uL (0.0-0.7); Absolute Lymphocyte Count 0.95 10^3/uL (1.2-3.4); Absolute Monocyte Count 0.66 10^3/uL (0.1-0.8); Absolute Neutrophil Count 5.07 10^3/uL (1.2-6.7); Basophils % 0.9 %; Eosinophils % 3.4 %; HCT 28.1 % (40.0-50.0); HGB 9.1 g/dL (13.5-17.5); Immature Grans % 0.3 %; Lymphocytes % 13.6 %; MCH 30.7 pg (27.0-33.0); MCHC 32.4 % (32.0-36.0); MCV 95 fL (80-95); MPV 9.6 fL (8.0-11.0); Monocytes % 9.4 %; Neutrophils % 72.4 %; Platelet Count 277 10^3/uL (130-400); RBC 2.96 10^6/uL (4.36-5.78); RDW 15.2 % (11.8-14.1); RDW-SD 52.7 fL
[2024-04-12 08:34] LABS: ALT 53 U/L (16-63); AST 45 U/L (15-37); Alkaline Phosphatase 160 U/L (46-116); Anion Gap 6.6 mmol/L (3-11); BUN 30 mg/dL (7-18); Bilirubin, Total 0.32 mg/dL (0.2-1.0); CO2 28.4 mmol/L (21.0-32.0); CREATININE 1.6 mg/dL (0.70-1.30); Calcium 8.3 mg/dL (8.5-10.1); Chloride 105 mmol/L (98-107); Estimated GFR 43.83 (mL/min/1.73m2); FREE T4 0.83 ng/dL (0.76-1.46); Glucose 199 mg/dL (74-106); Sodium 140 mmol/L (136-145); TSH 4.49 uIU/mL (0.36-3.74); Total Protein 6.6 g/dL (6.4-8.2)
[2024-04-26] MEDS: Normal Saline Flush 10 ML SYR IVP (08:18)
[2024-04-26 08:36] LABS: Abs Immature Grans 0.02 10^3/uL (0.0-0.06); Absolute Basophil Count 0.06 10^3/uL (0.0-0.2); Absolute Eosinophil Count 0.23 10^3/uL (0.0-0.7); Absolute Lymphocyte Count 0.84 10^3/uL (1.2-3.4); Absolute Monocyte Count 0.68 10^3/uL (0.1-0.8); Absolute Neutrophil Count 5.45 10^3/uL (1.2-6.7); Basophils % 0.8 %; Eosinophils % 3.2 %; HCT 28.3 % (40.0-50.0); HGB 9.1 g/dL (13.5-17.5); Immature Grans % 0.3 %; Lymphocytes % 11.5 %; MCH 30.7 pg (27.0-33.0); MCHC 32.2 % (32.0-36.0); MCV 96 fL (80-95); MPV 9.7 fL (8.0-11.0); Monocytes % 9.3 %; Neutrophils % 74.9 %; Platelet Count 264 10^3/uL (130-400); RBC 2.96 10^6/uL (4.36-5.78); RDW 15.2 % (11.8-14.1); RDW-SD 52.8 fL; WBC 7.28 10^3/uL (4.4-10.8)
[2024-04-26 09:04] LABS: ALT 54 U/L (16-63); AST 51 U/L (15-37); Albumin 3.2 g/dL (3.4-5.0); Alkaline Phosphatase 171 U/L (46-116); Anion Gap 6.3 mmol/L (3-11); BUN 27 mg/dL (7-18); Bilirubin, Total 0.37 mg/dL (0.2-1.0); CO2 27.7 mmol/L (21.0-32.0); CREATININE 1.7 mg/dL (0.70-1.30); Calcium 8.5 mg/dL (8.5-10.1); Chloride 109 mmol/L (98-107); Estimated GFR 40.75 (mL/min/1.73m2); FREE T4 0.81 ng/dL (0.76-1.46); Glucose 155 mg/dL (74-106); Potassium 3.7 mmol/L (3.5-5.1); Sodium 143 mmol/L (136-145); TSH 4.24 uIU/mL (0.36-3.74); Total Protein 6.8 g/dL (6.4-8.2)
[2024-05-03] MEDS: Normal Saline Flush 10 ML SYR IVP (07:33)
[2024-05-03 08:26] LABS: Abs Immature Grans 0.01 10^3/uL (0.0-0.06); Absolute Basophil Count 0.05 10^3/uL (0.0-0.2); Absolute Eosinophil Count 0.31 10^3/uL (0.0-0.7); Absolute Lymphocyte Count 0.98 10^3/uL (1.2-3.4); Absolute Monocyte Count 0.73 10^3/uL (0.1-0.8); Basophils % 0.7 %; Eosinophils % 4.6 %; HCT 28.3 % (40.0-50.0); HGB 8.8 g/dL (13.5-17.5); Immature Grans % 0.1 %; Lymphocytes % 14.5 %; MCH 29.8 pg (27.0-33.0); MCHC 31.1 % (32.0-36.0); MCV 96 fL (80-95); MPV 9.6 fL (8.0-11.0); Monocytes % 10.8 %; Neutrophils % 69.3 %; Platelet Count 272 10^3/uL (130-400); RBC 2.95 10^6/uL (4.36-5.78); RDW 14.8 % (11.8-14.1); RDW-SD 52.4 fL; WBC 6.78 10^3/uL (4.4-10.8)
[2024-05-03 08:51] LABS: ALT 50 U/L (16-63); AST 48 U/L (15-37); Albumin 3.1 g/dL (3.4-5.0); Alkaline Phosphatase 167 U/L (46-116); Anion Gap 5.1 mmol/L (3-11); BUN 27 mg/dL (7-18); Bilirubin, Total 0.27 mg/dL (0.2-1.0); CO2 29.9 mmol/L (21.0-32.0); CREATININE 1.8 mg/dL (0.70-1.30); Calcium 8.5 mg/dL (8.5-10.1); Chloride 104 mmol/L (98-107); Estimated GFR 38.05 (mL/min/1.73m2); FREE T4 0.88 ng/dL (0.76-1.46); Glucose 143 mg/dL (74-106); Sodium 139 mmol/L (136-145); TSH 4.37 uIU/mL (0.36-3.74); Total Protein 6.6 g/dL (6.4-8.2)
== END 2024-05-03 23:59 | disposition home or self-care (01) ==
LOC: INF 01:56
PROVIDERS: Visit Provider Internal Medicine
DX: C79.10 Secondary malignant neoplasm of unspecified urinary organs (principal); R94.6 Abnormal results of thyroid function studies
CPT/HCPCS: 36591; 80053; 84439; 84443; 85025

== ENCOUNTER 2024-05-24 02:05 | Outpatient (RCR) | payer MEDICARE, BC, SELFPAY ==
[2024-05-17] MEDS: Normal Saline Flush 10 ML SYR IVP (08:21)
[2024-05-17 08:45] LABS: Abs Immature Grans 0.03 10^3/uL (0.0-0.06); Absolute Basophil Count 0.07 10^3/uL (0.0-0.2); Absolute Eosinophil Count 0.21 10^3/uL (0.0-0.7); Absolute Monocyte Count 0.82 10^3/uL (0.1-0.8); Absolute Neutrophil Count 5.64 10^3/uL (1.2-6.7); Basophils % 0.9 %; Eosinophils % 2.7 %; HCT 28.7 % (40.0-50.0); HGB 9.1 g/dL (13.5-17.5); Immature Grans % 0.4 %; MCHC 31.7 % (32.0-36.0); MCV 95 fL (80-95); MPV 9.7 fL (8.0-11.0); Monocytes % 10.4 %; Neutrophils % 71.6 %; Platelet Count 305 10^3/uL (130-400); RBC 3.03 10^6/uL (4.36-5.78); RDW-SD 51.6 fL; WBC 7.87 10^3/uL (4.4-10.8)
[2024-05-17 09:16] LABS: ALT 49 U/L (16-63); AST 45 U/L (15-37); Albumin 3.3 g/dL (3.4-5.0); Alkaline Phosphatase 173 U/L (46-116); Anion Gap 5.4 mmol/L (3-11); BUN 31 mg/dL (7-18); Bilirubin, Total 0.36 mg/dL (0.2-1.0); CO2 30.6 mmol/L (21.0-32.0); CREATININE 1.6 mg/dL (0.70-1.30); Calcium 8.7 mg/dL (8.5-10.1); Chloride 105 mmol/L (98-107); Estimated GFR 43.83 (mL/min/1.73m2); FREE T4 0.84 ng/dL (0.76-1.46); Glucose 95 mg/dL (74-106); Potassium 4.2 mmol/L (3.5-5.1); Sodium 141 mmol/L (136-145); TSH 3.57 uIU/mL (0.36-3.74)
[2024-05-24] MEDS: Normal Saline Flush 10 ML SYR IVP (10:15)
[2024-05-24 10:23] LABS: Abs Immature Grans 0.07 10^3/uL (0.0-0.06); Absolute Basophil Count 0.07 10^3/uL (0.0-0.2); Absolute Eosinophil Count 0.24 10^3/uL (0.0-0.7); Absolute Lymphocyte Count 0.92 10^3/uL (1.2-3.4); Absolute Monocyte Count 1.38 10^3/uL (0.1-0.8); Absolute Neutrophil Count 9.12 10^3/uL (1.2-6.7); Basophils % 0.6 %; HCT 30.4 % (40.0-50.0); HGB 9.7 g/dL (13.5-17.5); Immature Grans % 0.6 %; Lymphocytes % 7.8 %; MCH 30.3 pg (27.0-33.0); MCHC 31.9 % (32.0-36.0); MCV 95 fL (80-95); MPV 9.3 fL (8.0-11.0); Monocytes % 11.7 %; Neutrophils % 77.3 %; Platelet Count 301 10^3/uL (130-400); RDW 14.7 % (11.8-14.1); RDW-SD 50.9 fL
[2024-05-24 10:49] LABS: ALT 54 U/L (16-63); AST 47 U/L (15-37); Albumin 3.3 g/dL (3.4-5.0); Alkaline Phosphatase 180 U/L (46-116); Anion Gap 5.3 mmol/L (3-11); BUN 30 mg/dL (7-18); Bilirubin, Total 0.37 mg/dL (0.2-1.0); CO2 29.7 mmol/L (21.0-32.0); CREATININE 1.6 mg/dL (0.70-1.30); Calcium 8.9 mg/dL (8.5-10.1); Chloride 107 mmol/L (98-107); Estimated GFR 43.83 (mL/min/1.73m2); FREE T4 0.85 ng/dL (0.76-1.46); Glucose 75 mg/dL (74-106); Potassium 4.2 mmol/L (3.5-5.1); Sodium 142 mmol/L (136-145); TSH 3.28 uIU/mL (0.36-3.74); Total Protein 6.9 g/dL (6.4-8.2)
== END 2024-06-03 23:59 | disposition home or self-care (01) ==
LOC: INF 02:05
PROVIDERS: Nurse Practitioner; Nurse Practitioner Adult Health; Visit Provider Internal Medicine
DX: C79.10 Secondary malignant neoplasm of unspecified urinary organs (principal); Z79.899 Other long term (current) drug therapy; D64.9 Anemia, unspecified; R79.89 Other specified abnormal findings of blood chemistry
CPT/HCPCS: 36591; 80053; 84439; 84443; 85025

== ENCOUNTER 2024-06-28 02:13 | Outpatient (RCR) | payer MEDICARE, BC, SELFPAY ==
[2024-06-07 09:21] LABS: Abs Immature Grans 0.02 10^3/uL (0.0-0.06); Absolute Basophil Count 0.04 10^3/uL (0.0-0.2); Absolute Eosinophil Count 0.21 10^3/uL (0.0-0.7); Absolute Lymphocyte Count 1.03 10^3/uL (1.2-3.4); Absolute Monocyte Count 0.76 10^3/uL (0.1-0.8); Absolute Neutrophil Count 4.38 10^3/uL (1.2-6.7); Basophils % 0.6 %; Eosinophils % 3.3 %; HCT 27.5 % (40.0-50.0); HGB 8.7 g/dL (13.5-17.5); Immature Grans % 0.3 %; MCH 30.1 pg (27.0-33.0); MCHC 31.6 % (32.0-36.0); MCV 95 fL (80-95); MPV 9.4 fL (8.0-11.0); Monocytes % 11.8 %; Platelet Count 234 10^3/uL (130-400); RBC 2.89 10^6/uL (4.36-5.78); RDW 15.3 % (11.8-14.1); WBC 6.44 10^3/uL (4.4-10.8)
[2024-06-07] MEDS: Normal Saline Flush 10 ML SYR IVP (09:34)
[2024-06-07 09:50] LABS: ALT 44 U/L (16-63); AST 42 U/L (15-37); Albumin 3.2 g/dL (3.4-5.0); Alkaline Phosphatase 160 U/L (46-116); Anion Gap 5.5 mmol/L (3-11); BUN 29 mg/dL (7-18); Bilirubin, Total 0.37 mg/dL (0.2-1.0); CO2 29.5 mmol/L (21.0-32.0); CREATININE 1.5 mg/dL (0.70-1.30); Calcium 8.6 mg/dL (8.5-10.1); Chloride 105 mmol/L (98-107); Estimated GFR 47.36 (mL/min/1.73m2); FREE T4 0.78 ng/dL (0.76-1.46); Glucose 127 mg/dL (74-106); Potassium 4.2 mmol/L (3.5-5.1); Sodium 140 mmol/L (136-145); Total Protein 6.6 g/dL (6.4-8.2)
[2024-06-14] MEDS: Normal Saline Flush 10 ML SYR IVP (08:06)
[2024-06-14 08:27] LABS: Abs Immature Grans 0.04 10^3/uL (0.0-0.06); Absolute Basophil Count 0.05 10^3/uL (0.0-0.2); Absolute Eosinophil Count 0.26 10^3/uL (0.0-0.7); Absolute Lymphocyte Count 0.97 10^3/uL (1.2-3.4); Absolute Monocyte Count 0.89 10^3/uL (0.1-0.8); Absolute Neutrophil Count 4.65 10^3/uL (1.2-6.7); Basophils % 0.7 %; Eosinophils % 3.8 %; HCT 29.5 % (40.0-50.0); HGB 9.2 g/dL (13.5-17.5); Immature Grans % 0.6 %; Lymphocytes % 14.1 %; MCH 29.8 pg (27.0-33.0); MCHC 31.2 % (32.0-36.0); MCV 96 fL (80-95); MPV 9.7 fL (8.0-11.0); Neutrophils % 67.8 %; Platelet Count 296 10^3/uL (130-400); RBC 3.09 10^6/uL (4.36-5.78); RDW 14.8 % (11.8-14.1); WBC 6.86 10^3/uL (4.4-10.8)
[2024-06-14 08:53] LABS: ALT 55 U/L (16-63); AST 46 U/L (15-37); Albumin 3.3 g/dL (3.4-5.0); Alkaline Phosphatase 165 U/L (46-116); Anion Gap 3.1 mmol/L (3-11); BUN 32 mg/dL (7-18); Bilirubin, Total 0.38 mg/dL (0.2-1.0); CO2 29.9 mmol/L (21.0-32.0); CREATININE 1.6 mg/dL (0.70-1.30); Calcium 8.7 mg/dL (8.5-10.1); Chloride 107 mmol/L (98-107); Estimated GFR 43.83 (mL/min/1.73m2); FREE T4 0.88 ng/dL (0.76-1.46); Glucose 155 mg/dL (74-106); Potassium 4.1 mmol/L (3.5-5.1); Sodium 140 mmol/L (136-145); TSH 4.11 uIU/mL (0.36-3.74); Total Protein 6.9 g/dL (6.4-8.2)
[2024-06-28] MEDS: Normal Saline Flush 10 ML SYR IVP (08:51)
[2024-06-28 09:04] LABS: Abs Immature Grans 0.03 10^3/uL (0.0-0.06); Absolute Basophil Count 0.06 10^3/uL (0.0-0.2); Absolute Eosinophil Count 0.24 10^3/uL (0.0-0.7); Absolute Lymphocyte Count 0.86 10^3/uL (1.2-3.4); Absolute Monocyte Count 0.76 10^3/uL (0.1-0.8); Absolute Neutrophil Count 5.19 10^3/uL (1.2-6.7); Basophils % 0.8 %; Eosinophils % 3.4 %; HCT 27.8 % (40.0-50.0); HGB 8.9 g/dL (13.5-17.5); Immature Grans % 0.4 %; MCH 30.2 pg (27.0-33.0); MCV 94 fL (80-95); MPV 9.4 fL (8.0-11.0); Monocytes % 10.6 %; Neutrophils % 72.8 %; Platelet Count 287 10^3/uL (130-400); RBC 2.95 10^6/uL (4.36-5.78); RDW 15.4 % (11.8-14.1); RDW-SD 53.1 fL; WBC 7.14 10^3/uL (4.4-10.8)
[2024-06-28 10:09] LABS: ALT 42 U/L (16-63); AST 43 U/L (15-37); Albumin 3.2 g/dL (3.4-5.0); Alkaline Phosphatase 178 U/L (46-116); Anion Gap 8.5 mmol/L (3-11); BUN 31 mg/dL (7-18); Bilirubin, Total 0.31 mg/dL (0.2-1.0); CO2 27.5 mmol/L (21.0-32.0); CREATININE 1.6 mg/dL (0.70-1.30); Calcium 8.8 mg/dL (8.5-10.1); Chloride 106 mmol/L (98-107); Estimated GFR 43.83 (mL/min/1.73m2); Glucose 164 mg/dL (74-106); Potassium 4.1 mmol/L (3.5-5.1); Sodium 142 mmol/L (136-145); TSH 4.48 uIU/mL (0.36-3.74); Total Protein 6.8 g/dL (6.4-8.2)
[2024-06-28 17:05] LABS: FREE T4 0.94 ng/dL (0.76-1.46)
== END 2024-07-01 23:59 | disposition home or self-care (01) ==
LOC: INF 02:13
PROVIDERS: Nurse Practitioner; Nurse Practitioner Adult Health; Visit Provider Internal Medicine
DX: C79.10 Secondary malignant neoplasm of unspecified urinary organs (principal); Z79.899 Other long term (current) drug therapy; D64.9 Anemia, unspecified; R79.89 Other specified abnormal findings of blood chemistry
CPT/HCPCS: 36591; 80053; 84439; 84443; 85025

== ENCOUNTER 2024-07-15 10:32 | Observation (INO) | payer MEDICARE, BC, SELFPAY ==
[2024-07-15] VITALS (13 sets, daily range): BP systolic 118–156; BP diastolic 65–76; PULSE 71–104; RESP 16–20; TEMP 36.1–37.3; O2SAT 94–98
--- NOTE | 2024-07-15 10:43 | ED.GENADUL_ITS ---
Discharge Plan Discharge Details Chief Complaint: Nausea/Vomit/Diar Clinical Impression: Normocytic anemia, Chills, Metastatic cancer, Hydronephrosis, right Admit Date/Time: 07/15/24 13:40 Admit Provider: Fermin Modi Attending Provider: Fermin Modi Primary Care Provider: Unknown,Unknown ED Provider: Sachin Crabtree HPI General Date/Time Provider Initiated Documentation: 07/15/24 10:43 . HPI Narrative: MDM This is a mildly tachycardic but normothermic 79-year-old male with history of metastatic urothelial carcinoma and chills with diarrhea concerning for intra- abdominal infection for which patient will undergo CT scan. Given tachycardia and cancer history I am concerned for the possibility of neutropenic fever so we will obtain labs including lactate blood cultures. No pain on proportion to suggest necrotizing soft tissue infection. Patient opted vomiting so my suspicion is low for small bowel obstruction. No dysuria no frequency to suggest UTI. No cough to suggest pneumonia. No rash to abdomen to suggest zoster. No flank pain to suggest ureterolithiasis. Will reassess following labs imaging and will consult oncology at [facility] No recent antibiotic use nor fevers to suggest C. difficile so I did not test for C. difficile. No recent travel to suggest atypical infection. No ongoing diarrhea to suggest opportunistic infection patient is certainly immunocompromise. 1pm I spoke to Dr. Gaines from oncology at [facility] who advised local overnight hospitalization with observation off antibiotics in the absence of any fevers tachycardia or hypotension. Patient's heart rate is now in the 80s. Will reach out to the hospitalist once patient's CT scan results.. 1:[address] scan showed some small bowel thickening. There is also some increased size of a hypodensity in the right kidney and some ipsilateral hydronephrosis. Given no flank pain I am not suspicious for ureteral lithiasis. As result I do not feel that the patient requires a repeat contrast load at this point in time. Radiology also mentions possibility of an MRI of the kidneys to further characterize the right renal abnormality. I advised patient of this finding. I do not feel he requires an emergent MRI as I did not order this study from the emergency department. Will reach out to the hospitalist team. 4:15 PM I was in touch with Dr. Modi who graciously agreed to accept the patient for hospitalization. Patient remained hemodynamically stable in the emergency department. HPI This is a 79-year-old male on outpatient chemotherapy in the setting of metastatic urothelial carcinoma right emergency department with his via private vehicle in the setting of diarrhea and chills. Patient notes that approximately 9:20 AM this morning he had an episode of diarrhea. He reports that he had chills from approximately 9:20 AM until 10:50 AM. He had a bowel resection approximately 1 year ago. He denies any recent antibiotic use. He has not been nauseous vomiting short of breath. He also denies chest pain dys uria and frequency. No recent falls. Exam General: Elderly-appearing in no acute distress speaking in complete sentences. Head: Normocephalic, atraumatic. Eye: Extraocular eye movements intact. No conjunctival injection. No scleral icterus. Ear, nose, mouth, throat: Grossly normal inspection. Normal voice, handling secretions normally. Neck: Trachea midline. Cardiovascular: Well-perfused distal extremities. Regular rate and rhythm. Respiratory: Nonlabored respiration.Clear lungs bilaterally. Gastrointestinal: Nondistended abdomen. Soft. Nontender. No rebound. No guarding. Well-healed midline surgical scars right lower quadrant scar. Musculoskeletal: No edema. Moving all 4 extremities spontaneously. Skin: Normal for age and race, grossly normal temperature and turgor. No acute rash. Neurologic: Alert and appropriate, no apparent acute deficits. GCS 15. Psychiatric: Mood and manner are appropriate. Grooming and personal hygiene are appropriate. Related Data Home Medications ?Medication ?Instructions ?Recorded ?Confirmed atorvastatin 40 mg tablet 40 mg PO QPM 02/15/22 07/15/24 metoprolol succinate 25 mg 25 mg PO QPM 02/15/22 07/15/24 tablet,extended release 24 hr jqektkpqxglh-hurhckrz-zfhms acid 1 cap PO DAILY 02/15/22 07/15/24 400 mcg-vitamin K 40 mcg capsule nitroglycerin 0.4 mg sublingual 0.4 mg sublingual PER PROTOCOL PRN 02/15/22 07/15/24 tablet Chest Pain amlodipine 5 mg tablet 5 mg PO DAILY 03/06/23 07/15/24 aspirin 81 mg tablet,delayed 81 mg PO DAILY 07/15/24 07/15/24 release tamsulosin 0.4 mg capsule 0.4 mg PO DAILY 07/15/24 07/15/24 Allergies Allergy/AdvReac Type Severity Reaction Status Date / Time No Known Allergies Allergy Unverified 07/15/24 14:10 General ESME: 2 Medical Decision Making Quality:SDOH Health Related Social Needs: No Data to Display PFSH All Active Problems (Updated 07/15/24 @ 13:21 by Sachin Crabtree MD) Hydronephrosis, right (Acute) Metastatic cancer (Acute) Chills (Acute) Normocytic anemia (Acute) Otorrhea (Acute) Cerumen impaction (Acute) Impacted cerumen, right ear (Acute) Cholelithiasis (Acute) Deafness middle ear (Acute) CAD (coronary artery disease), [place] coronary artery (Chronic) Atypical chest pain (Acute) Pyelonephritis, acute (Acute) Medical History Cleft lip and cleft palate Encounter for medical assessment Facial tingling Social History Smoking/Tobacco Use Status: Never Smoking risk assessment performed?: Yes Alcohol Intake: never Drug use: Never Substance use type: does not use Housing: house Do you feel safe at home: Yes Do you feel safe in your relationship?: Yes
--- NOTE | 2024-07-15 10:45 | RT.EKG_ITS ---
APPROVED REPORT Exam: Resting ECG Reason for Exam: weak Patient Location: E HR:92 bpm ECG Measurements Heart Rate 92 AXIS NJ 148 P 79 QRSd 94 QRS 78 QT 372 T 52 QTc 461 Conclusion Sinus rhythm...normal P axis, V-rate 60- 99 Repol abnrm suggests ischemia, anterolateral...ST dep, T neg, I aVL V2-V6 No STEMI
--- NOTE | 2024-07-15 10:45 | DI.RAD_ITS ---
Exam(s) XR CHEST 1V IN DI DEPT EXAM: XR CHEST 1V IN DI DEPT CLINICAL HISTORY: Sepsis TECHNIQUE: 2D digital imaging was performed of the chest. One image was obtained. An AP view was ob tained. COMPARISON: CR,XR XR PORTABLE CHEST AP from 02/15/2022 FINDINGS: MEDIASTINUM: Normal. HEART: Normal. PULMONARY VASCULATURE: Normal. LUNGS: Clear. PLEURAL SPACE: No pleural effusion or pneumothorax. BONE:Within normal limits for the patient's age. OTHER FINDINGS:The patient has a right-sided port. The tip is in good position at the cavoatrial dania ction. IMPRESSION: No acute pulmonary findings. DATA REPOSITORY: RADIATION DOSE DELIVERED:
--- NOTE | 2024-07-15 10:45 | DI.CT_ITS ---
Exam(s) CT ABDOMEN PELVIS W EXAM: CT ABDOMEN PELVIS W CLINICAL HISTORY: Abdominal pain diarrhea TECHNIQUE: Imaging Protocol: Axial computed tomography images with coronal and sagittal reformatted images were created and reviewed. CONTRAST MATERIAL: Intravenous: Omnipaque 350 Contrast volume:75 mL Oral: No COMPARISON: CT CT CHEST/ABD/PEL W from 02/15/2022 FINDINGS: ABDOMEN: Lung Bases: There is a calcified granuloma in the right lower lobe. Liver: Normal density. There are several hepatic cysts. No suspicious hepatic masses are present. Portal, Superior Mesenteric, and Splenic Veins: Unremarkable. Gallbladder and Biliary Tract: Cholelithiasis. There has been no change in the size of the extrahepa tic bile ducts. Pancreas: Normal density, no abnormal calcifications or inflammatory process. Spleen: Normal. Adrenals: No masses seen. Kidneys: There is developed right renal cortical atrophy since the prior examination. There is stran ding around the right kidney. There is poor enhancement of the right kidney. There is dilatation of the right renal collecting system at the level of the UPJ. There is been interval increase in size of the hypodensity at the inferior pole of the right kidney. This area now measures 2.5 cm. There i s concern for right renal mass. There is dilatation of the right renal pelvis. There is a calcifica tion now seen in the region of the pelvis which may be obstructing. There are bilateral renal cysts. The left renal cysts are unremarkable. No follow-up is recommended. There is no evidence of left hydronephrosis. Abdominal Aorta: Abdominal portion non-dilated. Atherosclerotic calcification is present. Bowel: There is diverticulosis of the colon without evidence of acute diverticulitis. There is a sma ll left inguinal hernia containing a knuckle of sigmoid colon. No evidence of bowel obstruction or i ncarceration. There are areas of bowel wall thickening in small bowel loops. There are fluid-filled loops of small bowel present. This can be seen with an enteritis or diarrheal illness. There is no evidence of appendicitis. Peritoneal Cavity: No ascites, collection or mesenteric inflammatory response. No free air. Lymph Nodes: Within normal limits. Bones: Within normal limits for the patient's age. Soft Tissues: Unremarkable. PELVIS: Bladder: Symmetric distention, no gross wall thickening. Reproductive Organs: Unremarkable as visualized. Lymph Nodes: Within normal limits. Bones: Within normal limits for the patient's age. IMPRESSION: 1. In the small bowel, there are areas of bowel wall thickening and fluid-filled loops of small bowel . This can be seen with the enteritis or diarrheal illness. 2. Interval increase in size of the hypodense area in the inferior pole of the right kidney. This ma y represent a worsening renal mass. 3. Right hydronephrosis with right renal cortical atrophy which has developed since the prior examina tion of 02/15/2022. There is a calcification in the region of the renal pelvis which may be causing obstruction. 4. Further evaluation with a CT urogram should be considered. In addition, an MRI of the kidneys wit hout and with contrast should be obtained for further characterization of the right renal abnormality . Unexpected findings RADIATION DOSE DELIVERED: 306.8mGy.cm Total DLP DATA REPOSITORY: All CT scans at this facility are submitted to the National Radiology Data Registry (NRDR) Dose Index Registry (DIR) with the [employer] (ACR). RADIATION OPTIMIZATION: All CT scans at this facility use at least one of these dose optimization te chniques: automated exposure control; mA and/or kV adjustment per patient size (includes targeted exa ms where dose is matched to clinical indication); or iterative reconstruction.
[2024-07-15 11:18] LABS: Abs Immature Grans 0.03 10^3/uL (0.0-0.06); Absolute Basophil Count 0.04 10^3/uL (0.0-0.2); Absolute Eosinophil Count 0.08 10^3/uL (0.0-0.7); Absolute Lymphocyte Count 0.29 10^3/uL (1.2-3.4); Absolute Monocyte Count 0.05 10^3/uL (0.1-0.8); Absolute Neutrophil Count 7.32 10^3/uL (1.2-6.7); Basophils % 0.5 %; HCT 27.5 % (40.0-50.0); HGB 8.7 g/dL (13.5-17.5); Immature Grans % 0.4 %; Lactate 1.6 mmol/L (<or=2.0); Lymphocytes % 3.7 %; MCH 29.7 pg (27.0-33.0); MCHC 31.6 % (32.0-36.0); MCV 94 fL (80-95); MPV 9.2 fL (8.0-11.0); Monocytes % 0.6 %; Neutrophils % 93.8 %; Platelet Count 264 10^3/uL (130-400); RBC 2.93 10^6/uL (4.36-5.78); RDW 15.9 % (11.8-14.1); RDW-SD 53.4 fL; WBC 7.81 10^3/uL (4.4-10.8)
[2024-07-15 11:39] LABS: ALT 41 U/L (16-63); AST 44 U/L (15-37); Albumin 3.2 g/dL (3.4-5.0); Alkaline Phosphatase 213 U/L (46-116); Anion Gap 8.6 mmol/L (3-11); BUN 29 mg/dL (7-18); Bilirubin, Total 0.6 mg/dL (0.2-1.0); CO2 28.4 mmol/L (21.0-32.0); CREATININE 1.7 mg/dL (0.70-1.30); Calcium 8.6 mg/dL (8.5-10.1); Chloride 105 mmol/L (98-107); Estimated GFR 40.75 (mL/min/1.73m2); Glucose 177 mg/dL (74-106); Potassium 3.8 mmol/L (3.5-5.1); Sodium 142 mmol/L (136-145); Total Protein 6.8 g/dL (6.4-8.2)
[2024-07-15 11:44] LABS: Troponin I 10 ng/L (<or=76)
[2024-07-15 11:50] LABS: Lipase 27 U/L (<78)
[2024-07-15 12:06] LABS: COVID-19 PCR Negative (Negative); Influenza A PCR Negative (Negative); Influenza B PCR Negative (Negative); RSV PCR Negative (Negative)
[2024-07-15] MEDS: CEFEPIME 2 GM in Normal Saline 100 ML IVPB (12:06)
[2024-07-15] MEDS: Normal Saline - Diluent 50 ML VIAL IJ (12:11)
[2024-07-15 12:15] LABS: Source Nasopharynx
--- NOTE | 2024-07-15 13:25 | HPE_ITS ---
Date of service: 07/15/24 Time of Service: 13:25 Assessment and Plan Assessment and plan (1) Chills: Status: Acute Assessment and plan: No further episode while in the hospital (2) Diarrhea: Status: Acute Assessment and plan: CT imaging diverticulosis without acute diverticulitis small bowel wall thickening and some areas might be reflective enteritis of diarrheal illness In the setting of 1 episode of diarrhea without objective fevers and ANC at 7.32?we will continue to monitor History of neoplasm with metastasis Low threshold for antibiotic therapy in the setting of fever, chills and signs of infection. (3) Hydronephrosis, right: Status: Acute Assessment and plan: New finding when compared to 02/16/24 CT but in the setting of normal renal function without CVA tenderness/ dysuria with negative UA their might not be emergent need for stenting / urology consult. More over this might be d/t progression of his neoplastic diseases Will continue to monitor (4) Metastatic cancer: Status: Acute Assessment and plan: Outpatient f/on D/c (5) Normocytic anemia: Status: Acute Assessment and plan: Stable - ongoing monitoring Discussed with Dr. Modi History of Present Illness History of Present Illness Chief Complaint: Diarrhea, chills Narrative: 79-year-old male with a past medical history of metastatic urothelial carcinoma presenting today to the ED with complaints of chills lasting about 40 minutes after 1 episode of diarrhea. The patient denied dizziness, chest pain, respiratory symptoms, other GI symptoms or symptoms. In the ED the patient was tachycardic at 104 without objective fever, hypotension or tachypnea. Workup in the ED showed chronic anemia with H&H of 8.7 and 27.5, and negative lactate, chemistry appears to be at baseline with a BUN of 29 and creatinine of 1.7 baseline around 30 and 1.6. Chest x-ray negative for acute findings. CT of the abdomen and pelvis showed increased size of the hypodensity at the inferior pole of the right kidney, new right hydronephrosis with renal calcification in the region of the renal pelvis and increased right inferior kidney pole hypodensity; small bowel wall thickening with fluid-filled loops. In the ED the patient was treated with vancomycin. The ED provider discussed recommendation for renal MRI without urgent need patient. The ED provider consulted oncology with recommendation for overnight observation without antibiotics. The patient was admitted to the medical surgical floor to the hospitalist service for overnight observation . The patient confirmed his DNR/DNI status. Review of Systems All systems reviewed & are unremarkable except as noted in HPI and below PFSH All Active Problems (Updated 07/15/24 @ 17:15 by Wilma Greenberg APRN) Diarrhea (Acute) Hydronephrosis, right (Acute) Metastatic cancer (Acute) Chills (Acute) Normocytic anemia (Acute) Otorrhea (Acute) Cerumen impaction (Acute) Impacted cerumen, right ear (Acute) Cholelithiasis (Acute) Deafness middle ear (Acute) CAD (coronary artery disease), [place] coronary artery (Chronic) Atypical chest pain (Acute) Pyelonephritis, acute (Acute) Medical History Cleft lip and cleft palate Encounter for medical assessment Facial tingling Social History Smoking/Tobacco Use Status: Never Smoking risk assessment performed?: Yes Alcohol Intake: never Drug use: Never Substance use type: does not use Housing: house Do you feel safe at home: Yes Do you feel safe in your relationship?: Yes Meds Allergies and Home Medications Allergies Allergy/AdvReac Type Severity Reaction Status Date / Time No Known Allergies Allergy Unverified 07/15/24 14:10 Home Medications ?Medication ?Instructions ?Recorded ?Confirmed ?Type atorvastatin 40 mg tablet 40 mg PO QPM 02/15/22 07/15/24 History metoprolol succinate 25 mg 25 mg PO QPM 02/15/22 07/15/24 History tablet,extended release 24 hr yndikqfsmyqg-vlqzfqni-kyuuy acid 1 cap PO DAILY 02/15/22 07/15/24 History 400 mcg-vitamin K 40 mcg capsule nitroglycerin 0.4 mg sublingual 0.4 mg sublingual PER PROTOCOL PRN 02/15/22 07/15/24 History tablet Chest Pain amlodipine 5 mg tablet 5 mg PO DAILY 03/06/23 07/15/24 History aspirin 81 mg tablet,delayed 81 mg PO DAILY 07/15/24 07/15/24 History release tamsulosin 0.4 mg capsule 0.4 mg PO DAILY 07/15/24 07/15/24 History Exam Narrative Exam Narrative: 43-etbc-mgu-year-old male appearing older than stated age, without acute distress, hard of hearing. Alert oriented x 4, no focal deficit Clear lungs bilaterally S1-S2, no murmur, no edema, positive pulses to all 4 extremities Abdomen is nondistended, soft, nontender, bowel present No CVA tenderness No lesion on exposed skin RASS 0-1, congruent mood and affect Results Labs 07/15/24 11:05 07/15/24 11:05 Labs: Laboratory Results - last 24 hr 07/15/24 07/15/24 11:05 11:20 WBC 7.81 RBC 2.93 L Hgb 8.7 L Hct 27.5 L MCV 94 MCH 29.7 MCHC 31.6 L RDW 15.9 H Plt Count 264 MPV 9.2 Immature Gran % 0.4 Neutrophils % 93.8 Lymphocytes % 3.7 Monocytes % 0.6 Eosinophils % 1.0 Basophils % 0.5 Nucleated RBC % 0.0 Absolute Neutrophils 7.32 H Absolute Lymphocytes 0.29 L Absolute Monocytes 0.05 L Absolute Eosinophils 0.08 Absolute Basophils 0.04 VBG Lactate 1.6 Sodium 142 Potassium 3.8 Chloride 105 Carbon Dioxide 28.4 Anion Gap 8.6 BUN 29 H Creatinine 1.7 H Est GFR (CKD-EPI 2020) 40.75 Glucose 177 H Calcium 8.6 Total Bilirubin 0.6 AST 44 H ALT 41 Alkaline Phosphatase 213 H Troponin I 10 Total Protein 6.8 Albumin 3.2 L Lipase 27 COVID-19 Source Nasopharynx SARS-CoV-2 (PCR) Negative Influenza Type A (PCR) Negative Influenza Type B (PCR) Negative RSV (PCR) Negative Last Vital Signs Temp 37.0 C 07/15/24 12:35 Pulse 80 07/15/24 13:00 Resp 20 07/15/24 12:35 BP 126/65 07/15/24 13:00 Pulse Ox 97 07/15/24 13:00 Right-mild Time Spent Time spent with Patient: >75 minutes Time was spent: preparing to see the patient(eg.review tests), obtaining and/or reviewing separately otained hiistory, ordering medications,tests, procedures, referring, communicating with other health health care / medical job titles, indepentently interpreting results, counseling the patient and care coordination
[2024-07-15] MEDS: VANCOMYCIN 1,250 MG in Normal Saline 250 ML 166.667 MG IVPB (13:30)
[2024-07-15 14:19] LABS: Bilirubin Negative (Negative); Blood Negative (Negative); Clarity Clear (Clear); Glucose Negative (Negative); Ketones Negative (Negative); Leukocyte Esterase Negative (Negative); Nitrite Negative (Negative); Specific Gravity 1.015 (1.005-1.025); Urobilinogen 0.2 mg/dL (Up to 0.2)
[2024-07-15 14:26] LABS: Bacteria Rare HPF (Negative); C & S Indicated? No; Casts Negative LPF (Negative); Crystals Negative HPF (Negative); Epithelial Cells Rare HPF (Negative); Mucus Trace (Negative); RBC 0-2 HPF (0-2); WBC 0-2 HPF (0-5)
--- NOTE | 2024-07-15 14:35 | W.PC.ACHO ---
Registration Status: Primary Language: Preferred Language: ED Information & Data Chief Complaint Nausea/Vomit/Diar 07/15/24 10:44 Chief Complaint Nausea/Vomit/Diar 07/15/24 10:41 Triage Note Pt Stage 4 CA pt, 07/15/24 10:41 complaining of unusual BM. Reports he usually clears out after chemo and immunotherapy. Has had ongoing diarrhea (more than 25 minutes). Sent by physician to get checked out . Pt complaining of some shakiness and feeling cold. No blood in stool, no nausea /vomiting. Medical / Surgical History (Last Reviewed 02/17/22 @ 10:29 by Shawn Newell MD) Cleft lip and cleft palate Facial tingling Encounter for medical assessment Most Recent Vital Signs Temperature 37.0 C 07/15/24 12:35 Temperature Source Oral 07/15/24 12:35 Pulse 92 H 07/15/24 14:10 Respiratory Rate 20 07/15/24 12:35 Blood Pressure 156/74 H 07/15/24 14:00 Blood Pressure Mean 97 07/15/24 14:00 Blood Pressure Position Sitting 07/15/24 12:35 Pulse Oximetry 94 07/15/24 14:10 Oxygen Delivery Method Room Air 07/15/24 12:35 Oxygen Flow Rate 0 07/15/24 12:35 Pain Level 0 07/15/24 12:35 Allergies No Known Allergies Allergy (Unverified 07/15/24 14:10) Active Medications Generic Name Dose Route Start Last Admin Trade Name Freq PRN Reason Stop Dose Admin Sodium Chloride 50 ml 07/15/24 12:15 07/15/24 12:11 Normal Saline - Diluent 50 Ml Vial IJ 50 ml .FOR DI USE MARISA Administration IV IV Catheter Type [Right Peripheral IV Antecubital] IV Catheter Gauge [Right 18 Antecubital] Diet Orders Category Date Time Status Regular/Normal [DIET] Nutrition 07/15/24 Dinner Active Diagnostics 07/15/24 07/15/24 07/15/24 Range/Units 14:15 13:50 11:47 WBC (4.4-10.8) 10^3/uL RBC (4.36-5.78) 10^6/uL Hgb (13.5-17.5) g/dL Hct (40.0-50.0) % MCV (80-95) fL MCH (27.0-33.0) pg MCHC (32.0-36.0) % RDW (11.8-14.1) % Plt Count (130-400) 10^3/uL MPV (8.0-11.0) fL Immature Gran % % Neutrophils % % Lymphocytes % % Monocytes % % Eosinophils % % Basophils % % Nucleated RBC % (0.0-0.3) % Absolute Neutrophils (1.2-6.7) 10^3/uL Absolute Lymphocytes (1.2-3.4) 10^3/uL Absolute Monocytes (0.1-0.8) 10^3/uL Absolute Eosinophils (0.0-0.7) 10^3/uL Absolute Basophils (0.0-0.2) 10^3/uL VBG Lactate (<or=2.0) mmol/L Sodium (136-145) mmol/L Potassium (3.5-5.1) mmol/L Chloride (98-107) mmol/L Carbon Dioxide (21.0-32.0) mmol/L Anion Gap (3-11) mmol/L BUN (7-18) mg/dL Creatinine (0.70-1.30) mg/dL Est GFR (CKD-EPI 2020) (mL/min/1.73m2) Glucose (74-106) mg/dL Calcium (8.5-10.1) mg/dL Total Bilirubin (0.2-1.0) mg/dL AST (15-37) U/L ALT (16-63) U/L Alkaline Phosphatase (46-116) U/L Troponin I Pending Pending (<or=76) ng/L Total Protein (6.4-8.2) g/dL Albumin (3.4-5.0) g/dL Lipase (<78) U/L Urine Color Yellow (Yellow) Urine Clarity Clear (Clear) Urine pH 6.0 (5-8) Ur Specific [place] 1.015 (1.005-1.025) Urine Protein 100 H (Neg-Trace) mg/dL Urine Ketones Negative (Negative) mg/dL Urine Blood Negative (Negative) Urine Nitrite Negative (Negative) Urine Bilirubin Negative (Negative) Urine Urobilinogen 0.2 (Up to 0.2) mg/dL Ur Leukocyte Esterase Negative (Negative) Urine RBC 0-2 (0-2) HPF Urine WBC 0-2 (0-5) HPF Ur Epithelial Cells Rare (Negative) HPF Urine Crystals Negative (Negative) HPF Urine Bacteria Rare (Negative) HPF Urine Casts Negative (Negative) LPF Urine Mucus Trace (Negative) Ur Culture Indicated? No Urine Glucose Negative (Negative) mg/dL COVID-19 Source SARS-CoV-2 (PCR) (Negative) Influenza Type A (PCR) (Negative) Influenza Type B (PCR) (Negative) RSV (PCR) (Negative) 07/15/24 07/15/24 Range/Units 11:20 11:05 WBC 7.81 (4.4-10.8) 10^3/uL RBC 2.93 L (4.36-5.78) 10^6/uL Hgb 8.7 L (13.5-17.5) g/dL Hct 27.5 L (40.0-50.0) % MCV 94 (80-95) fL MCH 29.7 (27.0-33.0) pg MCHC 31.6 L (32.0-36.0) % RDW 15.9 H (11.8-14.1) % Plt Count 264 (130-400) 10^3/uL MPV 9.2 (8.0-11.0) fL Immature Gran % 0.4 % Neutrophils % 93.8 % Lymphocytes % 3.7 % Monocytes % 0.6 % Eosinophils % 1.0 % Basophils % 0.5 % Nucleated RBC % 0.0 (0.0-0.3) % Absolute Neutrophils 7.32 H (1.2-6.7) 10^3/uL Absolute Lymphocytes 0.29 L (1.2-3.4) 10^3/uL Absolute Monocytes 0.05 L (0.1-0.8) 10^3/uL Absolute Eosinophils 0.08 (0.0-0.7) 10^3/uL Absolute Basophils 0.04 (0.0-0.2) 10^3/uL VBG Lactate 1.6 (<or=2.0) mmol/L Sodium 142 (136-145) mmol/L Potassium 3.8 (3.5-5.1) mmol/L Chloride 105 (98-107) mmol/L Carbon Dioxide 28.4 (21.0-32.0) mmol/L Anion Gap 8.6 (3-11) mmol/L BUN 29 H (7-18) mg/dL Creatinine 1.7 H (0.70-1.30) mg/dL Est GFR (CKD-EPI 2020) 40.75 (mL/min/1.73m2) Glucose 177 H (74-106) mg/dL Calcium 8.6 (8.5-10.1) mg/dL Total Bilirubin 0.6 (0.2-1.0) mg/dL AST 44 H (15-37) U/L ALT 41 (16-63) U/L Alkaline Phosphatase 213 H (46-116) U/L Troponin I 10 (<or=76) ng/L Total Protein 6.8 (6.4-8.2) g/dL Albumin 3.2 L (3.4-5.0) g/dL Lipase 27 (<78) U/L Urine Color (Yellow) Urine Clarity (Clear) Urine pH (5-8) Ur Specific [place] (1.005-1.025) Urine Protein (Neg-Trace) mg/dL Urine Ketones (Negative) mg/dL Urine Blood (Negative) Urine Nitrite (Negative) Urine Bilirubin (Negative) Urine Urobilinogen (Up to 0.2) mg/dL Ur Leukocyte Esterase (Negative) Urine RBC (0-2) HPF Urine WBC (0-5) HPF Ur Epithelial Cells (Negative) HPF Urine Crystals (Negative) HPF Urine Bacteria (Negative) HPF Urine Casts (Negative) LPF Urine Mucus (Negative) Ur Culture Indicated? Urine Glucose (Negative) mg/dL COVID-19 Source Nasopharynx SARS-CoV-2 (PCR) Negative (Negative) Influenza Type A (PCR) Negative (Negative) Influenza Type B (PCR) Negative (Negative) RSV (PCR) Negative (Negative) 07/15/24 11:10 Blood Culture - Pending Blood 07/15/24 11:05 Blood Culture - Pending Blood Intake and Output - 24 Hour Total 07/15/24 10:32 thru 07/15/24 12:36 Intake Total 110 Balance 110 Weight 62.414 kg Intake: IV 110 Other: Stool Characteristics Liquid Emesis Description None Falls Risk Assessment History of Falls No History 07/15/24 12:35 Fall Total Score 0 07/15/24 12:35 Level of Risk Standard/Low Risk 07/15/24 12:35 Problems (Last Reviewed 02/17/22 @ 10:29 by Shawn Newell MD) Hydronephrosis, right (Acute) Metastatic cancer (Acute) Chills (Acute) Normocytic anemia (Acute) v v v v v v v v v Sending and/or Receiving Nurses: Please use comment section below to note any information pertinent to the patient hand-off not included above. Information / Comments: Report received from: tere in ED
[2024-07-15 14:46] LABS: Troponin I 12 ng/L (<or=76)
[2024-07-15 16:48] LABS: Troponin I 14 ng/L (<or=76)
[2024-07-15] MEDS: Enoxaparin 40 MG/0.4 ML SYR SC (17:49)
[2024-07-15] MEDS: amLODIPine 5 MG TAB PO (19:35)
[2024-07-15] MEDS: Metoprolol CR 25 MG TABCR PO (19:35)
[2024-07-15] MEDS: Atorvastatin 40 MG TAB PO (19:35)
[2024-07-15] MEDS: Normal Saline Flush 10 ML SYR IVP (19:36)
[2024-07-16 03:14] VITALS: BP 116/61; PULSE 67; RESP 16; TEMP 36; O2SAT 98
[2024-07-16 06:59] LABS: Abs Immature Grans 0.05 10^3/uL (0.0-0.06); Absolute Basophil Count 0.06 10^3/uL (0.0-0.2); Absolute Eosinophil Count 0.27 10^3/uL (0.0-0.7); Absolute Lymphocyte Count 0.74 10^3/uL (1.2-3.4); Absolute Monocyte Count 1.13 10^3/uL (0.1-0.8); Absolute Neutrophil Count 7.34 10^3/uL (1.2-6.7); Basophils % 0.6 %; Eosinophils % 2.8 %; HGB 8.3 g/dL (13.5-17.5); Immature Grans % 0.5 %; Lymphocytes % 7.7 %; MCH 30.1 pg (27.0-33.0); MCHC 31.9 % (32.0-36.0); MCV 94 fL (80-95); MPV 9.8 fL (8.0-11.0); Monocytes % 11.8 %; Neutrophils % 76.6 %; Platelet Count 257 10^3/uL (130-400); RBC 2.76 10^6/uL (4.36-5.78); RDW 16.1 % (11.8-14.1); RDW-SD 54.5 fL; WBC 9.59 10^3/uL (4.4-10.8)
[2024-07-16 07:11] LABS: Anion Gap 5.3 mmol/L (3-11); BUN 33 mg/dL (7-18); CO2 28.7 mmol/L (21.0-32.0); CREATININE 1.7 mg/dL (0.70-1.30); Calcium 8.5 mg/dL (8.5-10.1); Chloride 105 mmol/L (98-107); Estimated GFR 40.75 (mL/min/1.73m2); Glucose 81 mg/dL (74-106); Magnesium 2.2 mg/dL; Potassium 3.6 mmol/L (3.5-5.1); Sodium 139 mmol/L (136-145)
[2024-07-16 07:40] VITALS: BP 125/84; PULSE 67; RESP 14; TEMP 36.4; O2SAT 98
[2024-07-16] MEDS: Multivitamin TAB 1 TAB PO (08:02)
[2024-07-16] MEDS: Aspirin E.C. 81 MG TABEC PO (08:02)
--- NOTE | 2024-07-16 10:53 | DSE_ITS ---
Date of service: 07/16/24 Time of Service: 10:53 DS: Diagnosis Discharge Diagnosis (1) Chills: Status: Acute (2) Diarrhea: Status: Acute (3) Hydronephrosis, right: Status: Acute (4) Metastatic cancer: Status: Acute (5) Normocytic anemia: Status: Acute Discharge Plan Disposition Patient Disposition: Home Condition: Improving Discharge Details Reason For Visit: neutropenic fever, chills, diarrhea Admit Date/Time: 07/15/24 13:40 Admit Provider: Fermin Modi Attending Provider: Fermin Modi Primary Care Provider: Unknown,Unknown Hospital Course Hospital Course: This is a 79-year-old male patient past medical history significant for metastatic urothelial carcinoma presented to the emergency department with chills and an episode of diarrhea. His workup was unremarkable with negative lactate normal white count fever workup negative with no UTI pneumonia with abdominal CT imaging negative. Case was discussed with oncology and no rec ommendation for antibiotics he was observed overnight hemodynamically remained stable. His symptoms resolved. Labs in the morning unremarkable he felt at baseline and stable for discharge to home he is being discharged to home with no new prescriptions resume medications as previously directed advance diet as tolerated follow-up with outpatient team discharge discussed with Dr Modi Home Meds and New Rx's Prescriptions: Continued amlodipine 5 mg tablet 5 mg PO DAILY atorvastatin 40 mg Tablet 40 mg PO QPM nitroglycerin 0.4 mg Tablet, Sublingual 0.4 mg sublingual PER PROTOCOL PRN (Reason: Chest Pain) metoprolol succinate 25 mg Tablet Extended Release 24 Hr 25 mg PO QPM ezfopkac-izv-[id number] acid-vit K 400-40 mcg Capsule 1 cap PO DAILY aspirin 81 mg tablet,delayed release (DR/EC) 81 mg PO DAILY Patient Comments: TAKE ONE TABLET BY MOUTH EVERY DAY tamsulosin 0.4 mg capsule 0.4 mg PO DAILY Patient Comments: TAKE ONE CAPSULE BY MOUTH EVERY EVENING Discharge Instructions Instructions: Diarrhea, Adult ED Additional Instructions: Push fluids to stay well-hydrated drinking at least 6 to 8 glasses or more of water daily Resume usual meds as previously directed Follow-up with your outpatient team or return sooner for new or worsening symptoms Referrals: Unknown,Unknown [Primary Care Provider] - (Outpatient follow-up call Thursday for appointment) Activity:: Activity as Tolerated Equipment/Supplies:: No Equipment Needed Diet:: As Tolerated Discharge Orders Discharge Orders: Discharge Order (Routine); Ordered 07/16/24 Ordered By: Honey Payne DS: Summary Time Spent with Patient providing and/or coordinating discharge services: Greater than 30 minutes Status at Discharge Functional status at discharge: independent ambulation Overall status at discharge: patient is back to baseline Mental Status: mental status grossly normal Speech and Movement: speech and movement normal Mood: congruent mood Affect: normal affect Quality:SDOH Health Related Social Needs: No Data to Display Exam Narrative Exam Narrative: Well-appearing male of stated age in no acute distress hard of hearing wearing a hearing aid in his right ear eyes nonicteric noninjected head is normocephalic atraumatic oral mucosas moist neck full range of motion no JVD cardiovascular regular rate and rhythm respirations even and unlabored his breath sounds are clear bilaterally abdomen soft nontender moves all extremities no peripheral edema neurologic he is awake alert oriented no focal deficits psychiatric appropriate mood and affect Psych Mental Status: mental status grossly normal Speech and Movement: speech and movement normal Mood: congruent mood Affect: normal affect DS: Data Vitals/I&O Vitals and I&O: Vital Signs Temperature 36.4 C L 07/16/24 07:40 Temperature Source Temporal Artery Scan 07/16/24 07:40 Pulse 67 07/16/24 07:40 Pulse Rhythm Regular 07/15/24 15:10 Respiratory Rate 14 07/16/24 07:40 Respiratory Effort Normal 07/15/24 15:10 Respiratory Depth Normal 07/15/24 15:10 Respiratory Pattern Normal 07/15/24 15:10 Blood Pressure 125/84 07/16/24 07:40 Blood Pressure Mean 97 07/15/24 14:00 Blood Pressure Position Sitting 07/15/24 12:35 Pulse Oximetry 98 07/16/24 07:40 Oxygen Delivery Method Room Air 07/16/24 07:40 Oxygen Flow Rate 0 07/16/24 07:40 Pain Level 0 07/15/24 15:10 Intake & Output 07/15/24 07/15/24 07/16/24 11:59 23:59 11:59 Intake Total 1560 / 1560 Balance 1560 / 1560 Weight 62.414 kg 62.414 kg Intake: IV 360 / 360 Oral 1200 / 1200 Other: Urine Color Yellow Urine Appearance Clear Urine Odor None Comment voids independently voids independently Stool Characteristics Liquid Emesis Description None Data Completed and Pending Labs on day of discharge: Labs from last 24 hours 07/16/24 07/15/24 07/15/24 05:52 15:15 14:15 WBC 9.59 RBC 2.76 L Hgb 8.3 L Hct 26.0 L MCV 94 MCH 30.1 MCHC 31.9 L RDW 16.1 H Plt Count 257 MPV 9.8 Immature Gran % 0.5 Neutrophils % 76.6 Lymphocytes % 7.7 Monocytes % 11.8 Eosinophils % 2.8 Basophils % 0.6 Nucleated RBC % 0.0 Absolute Neutrophils 7.34 H Absolute Lymphocytes 0.74 L Absolute Monocytes 1.13 H Absolute Eosinophils 0.27 Absolute Basophils 0.06 VBG Lactate Sodium 139 Potassium 3.6 Chloride 105 Carbon Dioxide 28.7 Anion Gap 5.3 BUN 33 H Creatinine 1.7 H Est GFR (CKD-EPI 2020) 40.75 Glucose 81 Calcium 8.5 Magnesium 2.2 Total Bilirubin AST ALT Alkaline Phosphatase Troponin I 14 12 Total Protein Albumin Lipase Urine Color Urine Clarity Urine pH Ur Specific [place] Urine Protein Urine Ketones Urine Blood Urine Nitrite Urine Bilirubin Urine Urobilinogen Ur Leukocyte Esterase Urine RBC Urine WBC Ur Epithelial Cells Urine Crystals Urine Bacteria Urine Casts Urine Mucus Ur Culture Indicated? Urine Glucose COVID-19 Source SARS-CoV-2 (PCR) Influenza Type A (PCR) Influenza Type B (PCR) RSV (PCR) 07/15/24 07/15/24 07/15/24 13:50 11:20 11:05 WBC 7.81 RBC 2.93 L Hgb 8.7 L Hct 27.5 L MCV 94 MCH 29.7 MCHC 31.6 L RDW 15.9 H Plt Count 264 MPV 9.2 Immature Gran % 0.4 Neutrophils % 93.8 Lymphocytes % 3.7 Monocytes % 0.6 Eosinophils % 1.0 Basophils % 0.5 Nucleated RBC % 0.0 Absolute Neutrophils 7.32 H Absolute Lymphocytes 0.29 L Absolute Monocytes 0.05 L Absolute Eosinophils 0.08 Absolute Basophils 0.04 VBG Lactate 1.6 Sodium 142 Potassium 3.8 Chloride 105 Carbon Dioxide 28.4 Anion Gap 8.6 BUN 29 H Creatinine 1.7 H Est GFR (CKD-EPI 2020) 40.75 Glucose 177 H Calcium 8.6 Magnesium Total Bilirubin 0.6 AST 44 H ALT 41 Alkaline Phosphatase 213 H Troponin I 10 Total Protein 6.8 Albumin 3.2 L Lipase 27 Urine Color Yellow Urine Clarity Clear Urine pH 6.0 Ur Specific [place] 1.015 Urine Protein 100 H Urine Ketones Negative Urine Blood Negative Urine Nitrite Negative Urine Bilirubin Negative Urine Urobilinogen 0.2 Ur Leukocyte Esterase Negative Urine RBC 0-2 Urine WBC 0-2 Ur Epithelial Cells Rare Urine Crystals Negative Urine Bacteria Rare Urine Casts Negative Urine Mucus Trace Ur Culture Indicated? No Urine Glucose Negative COVID-19 Source Nasopharynx SARS-CoV-2 (PCR) Negative Influenza Type A (PCR) Negative Influenza Type B (PCR) Negative RSV (PCR) Negative 07/15/24 11:10 Blood Blood Culture - Pending 07/15/24 11:05 Blood Blood Culture - Pending Preliminary micro results at discharge 07/15/24 11:10 Blood Culture - Pending Blood 07/15/24 11:05 Blood Culture - Pending Blood PFSH All Active Problems (Updated 07/15/24 @ 17:15 by Wilma Greenberg APRN) Diarrhea (Acute) Hydronephrosis, right (Acute) Metastatic cancer (Acute) Chills (Acute) Normocytic anemia (Acute) Otorrhea (Acute) Cerumen impaction (Acute) Impacted cerumen, right ear (Acute) Cholelithiasis (Acute) Deafness middle ear (Acute) CAD (coronary artery disease), [place] coronary artery (Chronic) Atypical chest pain (Acute) Pyelonephritis, acute (Acute) Medical History Cleft lip and cleft palate Encounter for medical assessment Facial tingling Social History Smoking/Tobacco Use Status: Never Smoking risk assessment performed?: Yes Alcohol Intake: never Drug use: Never Substance use type: does not use Housing: house Do you feel safe at home: Yes Do you feel safe in your relationship?: Yes Time Spent with Patient Time Spent with Patient: 45-69 minutes Time was spent: preparing to see the patient(eg.review tests), obtaining and/or reviewing separately otained hiistory, ordering medications,tests, procedures, indepentently interpreting results and counseling the patient
--- NOTE | 2024-07-16 11:59 | PDOC.CMPRO ---
Date of service: 07/16/24 Time of Service: 11:00 Care Management Progress Note Progress Note Text Progress Note Text: Justen was admitted yesterday with shaking chills after an episode of diarrhea. He has a history of metastatic urothelial carcinoma. Justen's oncologist was consulted and it was recommended that he spend the night under observation without antibiotics. Justen felt much better this morning, and felt ready to return home. Justen lives with his , Ling. They have several children that are supportive, but not all live in the area. Justen denied the need for HH services. He stated that he has a PCP, but that he sees someone different every time, and doesn't know the name of provider or the clinic. He is sufficiently followed at [facility] [place] [place] oncology, as well. Discharge Potential Discharge Needs: PCP F/U Appt and Other (oncology f/u. Receives chemo tx 3 weeks out of 4 monthly.) Anticipated Barriers to Discharge: None Identified Patient/Family Education Needs: Review discharge instructions, discuss Ask Me Three Transportation: Private vehicle Plan: Justen was discharged today after having no further episodes of diarrhea or shaking chills overnight. He feels well and is eager to go home. Justen will f/u with his PCP and his oncology team, and continue per his plan of care. He transported home in a private vehicle with his friend. Social Determinants of Health Screening Social Determinants of Health last assessed: 07/16/24 Will the Patient Participate in the Screening?: Yes Do you worry about having a steady place to live?: no Problems where you live: no known problems In the past 12 months, have you had to go without electric, gas, oil or water in your home?: no Have you or anyone in your house had to go without enough food to eat?: no Has lack of transportation kept you from medical appointments or from doing things needed for daily living?: no Has anyone in your life made you feel unsafe or unsupported?: no How hard is it for you to pay for the very basics like food, housing, medical care, and heating? Would you say it is:: Not hard at all Do you want help finding or keeping work or a job?: I do not need or want help If for any reason you need help with day-to-day activities such as bathing, preparing meals, shopping, managing finances, etc., do you get the help you need?: I don?t need any help How often do you feel lonely or isolated from those around you?: Never Do you speak a language other than [place] at home?: No Does the patient want assistance with any of the above?: No
== END 2024-07-16 11:25 | disposition home or self-care (01) ==
LOC: ER 10:53 → MS 14:55
PROVIDERS: Nurse Practitioner Acute Care; Admitting Provider Family Medicine; Emergency Provider Emergency Medicine; Responsible Provider Nurse Practitioner Acute Care; Visit Provider Family Medicine
DX: R68.83 Chills (without fever) (principal); R19.7 Diarrhea, unspecified; N13.30 Unspecified hydronephrosis; I25.10 Atherosclerotic heart disease of native coronary artery without angina pectoris; D64.9 Anemia, unspecified; Z79.899 Other long term (current) drug therapy; Z66 Do not resuscitate; C79.9 Secondary malignant neoplasm of unspecified site
CPT/HCPCS: 00123; 36415; 80048; 80053; 83690; 87040; 87637; 93005; 96365; 96366; 96367; 96372; 99285; J1650; 71045; 74177; 81003; 81015; 83605; 83735; 84484; 85025; 93010; 99223; 99239; G0378; J0692; J3370

== ENCOUNTER 2024-07-26 01:44 | Outpatient (RCR) | payer MEDICARE, BC, SELFPAY ==
[2024-07-05 09:01] LABS: Abs Immature Grans 0.02 10^3/uL (0.0-0.06); Absolute Basophil Count 0.08 10^3/uL (0.0-0.2); Absolute Eosinophil Count 0.27 10^3/uL (0.0-0.7); Absolute Lymphocyte Count 0.96 10^3/uL (1.2-3.4); Absolute Monocyte Count 0.72 10^3/uL (0.1-0.8); Absolute Neutrophil Count 4.64 10^3/uL (1.2-6.7); Basophils % 1.2 %; HCT 28.1 % (40.0-50.0); HGB 9.1 g/dL (13.5-17.5); Immature Grans % 0.3 %; Lymphocytes % 14.3 %; MCH 29.8 pg (27.0-33.0); MCHC 32.4 % (32.0-36.0); MCV 92 fL (80-95); MPV 9.7 fL (8.0-11.0); Monocytes % 10.8 %; Neutrophils % 69.4 %; Platelet Count 345 10^3/uL (130-400); RBC 3.05 10^6/uL (4.36-5.78); RDW 15.3 % (11.8-14.1); RDW-SD 50.7 fL; WBC 6.69 10^3/uL (4.4-10.8)
[2024-07-05 09:29] LABS: ALT 53 U/L (16-63); AST 48 U/L (15-37); Albumin 3.3 g/dL (3.4-5.0); Alkaline Phosphatase 210 U/L (46-116); Anion Gap 5.4 mmol/L (3-11); BUN 30 mg/dL (7-18); Bilirubin, Total 0.44 mg/dL (0.2-1.0); CO2 30.6 mmol/L (21.0-32.0); CREATININE 1.7 mg/dL (0.70-1.30); Chloride 106 mmol/L (98-107); Estimated GFR 40.75 (mL/min/1.73m2); Glucose 157 mg/dL (74-106); Potassium 3.9 mmol/L (3.5-5.1); Sodium 142 mmol/L (136-145); TSH 3.29 uIU/mL (0.36-3.74); Total Protein 7.1 g/dL (6.4-8.2)
[2024-07-05] MEDS: Normal Saline Flush 10 ML SYR IVP (10:04)
[2024-07-19] MEDS: Normal Saline Flush 10 ML SYR IVP (08:33)
[2024-07-19 08:41] LABS: Abs Immature Grans 0.03 10^3/uL (0.0-0.06); Absolute Basophil Count 0.08 10^3/uL (0.0-0.2); Absolute Eosinophil Count 0.21 10^3/uL (0.0-0.7); Absolute Lymphocyte Count 0.97 10^3/uL (1.2-3.4); Absolute Monocyte Count 0.55 10^3/uL (0.1-0.8); Absolute Neutrophil Count 4.78 10^3/uL (1.2-6.7); Basophils % 1.2 %; Eosinophils % 3.2 %; HCT 27.7 % (40.0-50.0); HGB 8.8 g/dL (13.5-17.5); Immature Grans % 0.5 %; Lymphocytes % 14.7 %; MCH 29.4 pg (27.0-33.0); MCHC 31.8 % (32.0-36.0); MCV 93 fL (80-95); MPV 9.2 fL (8.0-11.0); Monocytes % 8.3 %; Neutrophils % 72.1 %; Platelet Count 280 10^3/uL (130-400); RBC 2.99 10^6/uL (4.36-5.78); RDW 15.6 % (11.8-14.1); RDW-SD 52.8 fL; WBC 6.62 10^3/uL (4.4-10.8)
[2024-07-19 09:08] LABS: ALT 43 U/L (16-63); AST 44 U/L (15-37); Albumin 3.4 g/dL (3.4-5.0); Alkaline Phosphatase 170 U/L (46-116); Anion Gap 6.9 mmol/L (3-11); BUN 30 mg/dL (7-18); Bilirubin, Total 0.5 mg/dL (0.2-1.0); CO2 29.1 mmol/L (21.0-32.0); CREATININE 1.6 mg/dL (0.70-1.30); Calcium 8.9 mg/dL (8.5-10.1); Chloride 103 mmol/L (98-107); Estimated GFR 43.83 (mL/min/1.73m2); Glucose 194 mg/dL (74-106); Potassium 3.9 mmol/L (3.5-5.1); Sodium 139 mmol/L (136-145); TSH 4.97 uIU/mL (0.36-3.74); Total Protein 7.1 g/dL (6.4-8.2)
[2024-07-26 08:34] LABS: Abs Immature Grans 0.03 10^3/uL (0.0-0.06); Absolute Basophil Count 0.06 10^3/uL (0.0-0.2); Absolute Eosinophil Count 0.27 10^3/uL (0.0-0.7); Absolute Lymphocyte Count 1.03 10^3/uL (1.2-3.4); Absolute Monocyte Count 0.83 10^3/uL (0.1-0.8); Absolute Neutrophil Count 5.43 10^3/uL (1.2-6.7); Basophils % 0.8 %; Eosinophils % 3.5 %; HCT 26.9 % (40.0-50.0); HGB 8.5 g/dL (13.5-17.5); Immature Grans % 0.4 %; Lymphocytes % 13.5 %; MCH 28.6 pg (27.0-33.0); MCHC 31.6 % (32.0-36.0); MCV 91 fL (80-95); MPV 9.6 fL (8.0-11.0); Monocytes % 10.8 %; Platelet Count 336 10^3/uL (130-400); RBC 2.97 10^6/uL (4.36-5.78); RDW 15.5 % (11.8-14.1); RDW-SD 50.5 fL; WBC 7.65 10^3/uL (4.4-10.8)
[2024-07-26] MEDS: Normal Saline Flush 10 ML SYR IVP (08:56)
[2024-07-26 09:07] LABS: ALT 53 U/L (16-63); AST 46 U/L (15-37); Albumin 3.2 g/dL (3.4-5.0); Alkaline Phosphatase 169 U/L (46-116); Anion Gap 6.8 mmol/L (3-11); BUN 29 mg/dL (7-18); Bilirubin, Total 0.4 mg/dL (0.2-1.0); CO2 28.2 mmol/L (21.0-32.0); CREATININE 1.5 mg/dL (0.70-1.30); Calcium 8.7 mg/dL (8.5-10.1); Chloride 104 mmol/L (98-107); Estimated GFR 47.36 (mL/min/1.73m2); Glucose 110 mg/dL (74-106); Potassium 3.8 mmol/L (3.5-5.1); Sodium 139 mmol/L (136-145); TSH 4.65 uIU/mL (0.36-3.74); Total Protein 6.9 g/dL (6.4-8.2)
[2024-07-26 09:17] LABS: Magnesium 2.1 mg/dL
== END 2024-08-01 23:59 | disposition home or self-care (01) ==
LOC: INF 01:44
PROVIDERS: Nurse Practitioner Adult Health; Visit Provider Nurse Practitioner
DX: C79.10 Secondary malignant neoplasm of unspecified urinary organs (principal); Z79.899 Other long term (current) drug therapy; D64.9 Anemia, unspecified; R79.89 Other specified abnormal findings of blood chemistry
CPT/HCPCS: 36591; 80053; 83735; 84439; 84443; 85025

== ENCOUNTER 2024-08-30 00:22 | Outpatient (RCR) | payer MEDICARE, BC, SELFPAY ==
[2024-08-09] MEDS: Normal Saline Flush 10 ML SYR IVP (08:16)
[2024-08-09 08:29] LABS: Abs Immature Grans 0.02 10^3/uL (0.0-0.06); Absolute Basophil Count 0.06 10^3/uL (0.0-0.2); Absolute Eosinophil Count 0.29 10^3/uL (0.0-0.7); Absolute Lymphocyte Count 0.99 10^3/uL (1.2-3.4); Absolute Neutrophil Count 4.25 10^3/uL (1.2-6.7); Eosinophils % 4.7 %; HCT 27.9 % (40.0-50.0); HGB 8.7 g/dL (13.5-17.5); Immature Grans % 0.3 %; Lymphocytes % 16.2 %; MCH 28.9 pg (27.0-33.0); MCHC 31.2 % (32.0-36.0); MCV 93 fL (80-95); MPV 9.7 fL (8.0-11.0); Monocytes % 8.2 %; Neutrophils % 69.6 %; Platelet Count 296 10^3/uL (130-400); RBC 3.01 10^6/uL (4.36-5.78); RDW 15.9 % (11.8-14.1); RDW-SD 53.9 fL; WBC 6.11 10^3/uL (4.4-10.8)
[2024-08-09 08:53] LABS: ALT 45 U/L (16-63); AST 44 U/L (15-37); Albumin 3.3 g/dL (3.4-5.0); Alkaline Phosphatase 164 U/L (46-116); Anion Gap 7.6 mmol/L (3-11); BUN 24 mg/dL (7-18); Bilirubin, Total 0.4 mg/dL (0.2-1.0); CO2 29.4 mmol/L (21.0-32.0); CREATININE 1.6 mg/dL (0.70-1.30); Chloride 105 mmol/L (98-107); Estimated GFR 43.83 (mL/min/1.73m2); FREE T4 0.84 ng/dL (0.76-1.46); Glucose 181 mg/dL (74-106); Potassium 3.7 mmol/L (3.5-5.1); Sodium 142 mmol/L (136-145); TSH 3.39 uIU/mL (0.36-3.74)
[2024-08-16] MEDS: Normal Saline Flush 10 ML SYR IVP (08:09)
[2024-08-16 08:37] LABS: Abs Immature Grans 0.02 10^3/uL (0.0-0.06); Absolute Basophil Count 0.06 10^3/uL (0.0-0.2); Absolute Eosinophil Count 0.25 10^3/uL (0.0-0.7); Absolute Lymphocyte Count 0.79 10^3/uL (1.2-3.4); Absolute Monocyte Count 0.65 10^3/uL (0.1-0.8); Basophils % 0.8 %; Eosinophils % 3.4 %; HCT 26.7 % (40.0-50.0); HGB 8.5 g/dL (13.5-17.5); Immature Grans % 0.3 %; Lymphocytes % 10.7 %; MCH 28.8 pg (27.0-33.0); MCHC 31.8 % (32.0-36.0); MCV 91 fL (80-95); MPV 9.4 fL (8.0-11.0); Monocytes % 8.8 %; Platelet Count 290 10^3/uL (130-400); RBC 2.95 10^6/uL (4.36-5.78); RDW 15.7 % (11.8-14.1); RDW-SD 51.8 fL; WBC 7.37 10^3/uL (4.4-10.8)
[2024-08-16 09:08] LABS: ALT 54 U/L (16-63); AST 46 U/L (15-37); Albumin 3.2 g/dL (3.4-5.0); Alkaline Phosphatase 173 U/L (46-116); Anion Gap 8.6 mmol/L (3-11); BUN 26 mg/dL (7-18); Bilirubin, Total 0.3 mg/dL (0.2-1.0); CO2 27.4 mmol/L (21.0-32.0); CREATININE 1.6 mg/dL (0.70-1.30); Calcium 8.8 mg/dL (8.5-10.1); Chloride 104 mmol/L (98-107); Estimated GFR 43.83 (mL/min/1.73m2); FREE T4 0.89 ng/dL (0.76-1.46); Glucose 209 mg/dL (74-106); Potassium 3.8 mmol/L (3.5-5.1); Sodium 140 mmol/L (136-145); TSH 2.73 uIU/mL (0.36-3.74); Total Protein 6.7 g/dL (6.4-8.2)
[2024-08-30 09:15] LABS: Abs Immature Grans 0.02 10^3/uL (0.0-0.06); Absolute Basophil Count 0.05 10^3/uL (0.0-0.2); Absolute Eosinophil Count 0.29 10^3/uL (0.0-0.7); Absolute Lymphocyte Count 0.96 10^3/uL (1.2-3.4); Absolute Monocyte Count 0.69 10^3/uL (0.1-0.8); Absolute Neutrophil Count 4.93 10^3/uL (1.2-6.7); Basophils % 0.7 %; Eosinophils % 4.2 %; HCT 25.8 % (40.0-50.0); HGB 8.2 g/dL (13.5-17.5); Immature Grans % 0.3 %; Lymphocytes % 13.8 %; MCHC 31.8 % (32.0-36.0); MCV 91 fL (80-95); MPV 9.1 fL (8.0-11.0); Monocytes % 9.9 %; Neutrophils % 71.1 %; Platelet Count 273 10^3/uL (130-400); RBC 2.83 10^6/uL (4.36-5.78); RDW 16.1 % (11.8-14.1); RDW-SD 53.5 fL; WBC 6.94 10^3/uL (4.4-10.8)
[2024-08-30 09:39] LABS: ALT 45 U/L (16-63); AST 44 U/L (15-37); Albumin 3.1 g/dL (3.4-5.0); Alkaline Phosphatase 161 U/L (46-116); Anion Gap 6.6 mmol/L (3-11); BUN 27 mg/dL (7-18); Bilirubin, Total 0.4 mg/dL (0.2-1.0); CO2 30.4 mmol/L (21.0-32.0); CREATININE 1.5 mg/dL (0.70-1.30); Calcium 8.6 mg/dL (8.5-10.1); Chloride 105 mmol/L (98-107); Estimated GFR 47.36 (mL/min/1.73m2); FREE T4 0.88 ng/dL (0.76-1.46); Glucose 107 mg/dL (74-106); Potassium 3.9 mmol/L (3.5-5.1); Sodium 142 mmol/L (136-145); TSH 3.16 uIU/mL (0.36-3.74); Total Protein 6.6 g/dL (6.4-8.2)
[2024-08-30] MEDS: Normal Saline Flush 10 ML SYR IVP (09:43)
== END 2024-08-31 23:59 | disposition home or self-care (01) ==
LOC: INF 00:22
PROVIDERS: Visit Provider Nurse Practitioner
DX: C79.10 Secondary malignant neoplasm of unspecified urinary organs (principal); Z79.899 Other long term (current) drug therapy; D64.9 Anemia, unspecified; R78.89 Finding of other specified substances, not normally found in blood; Z45.2 Encounter for adjustment and management of vascular access device
CPT/HCPCS: 36591; 80053; 84439; 84443; 85025

== ENCOUNTER 2024-09-27 01:55 | Outpatient (RCR) | payer MEDICARE, BC, SELFPAY ==
[2024-09-06 07:22] LABS: Abs Immature Grans 0.02 10^3/uL (0.0-0.06); Absolute Basophil Count 0.05 10^3/uL (0.0-0.2); Absolute Neutrophil Count 4.06 10^3/uL (1.2-6.7); Basophils % 0.8 %; Eosinophils % 5.1 %; HCT 25.4 % (40.0-50.0); HGB 7.9 g/dL (13.5-17.5); Immature Grans % 0.3 %; Lymphocytes % 15.2 %; MCH 28.6 pg (27.0-33.0); MCHC 31.1 % (32.0-36.0); MCV 92 fL (80-95); MPV 9.1 fL (8.0-11.0); Monocytes % 10.1 %; Neutrophils % 68.5 %; Platelet Count 294 10^3/uL (130-400); RBC 2.76 10^6/uL (4.36-5.78); RDW 15.9 % (11.8-14.1); RDW-SD 53.3 fL; WBC 5.93 10^3/uL (4.4-10.8)
[2024-09-06] MEDS: Normal Saline Flush 10 ML SYR IVP (07:36)
[2024-09-06 07:47] LABS: ALT 41 U/L (16-63); AST 43 U/L (15-37); Albumin 3.2 g/dL (3.4-5.0); Alkaline Phosphatase 164 U/L (46-116); BUN 34 mg/dL (7-18); Bilirubin, Total 0.3 mg/dL (0.2-1.0); CREATININE 1.6 mg/dL (0.70-1.30); Calcium 8.4 mg/dL (8.5-10.1); Chloride 104 mmol/L (98-107); Estimated GFR 43.83 (mL/min/1.73m2); Glucose 188 mg/dL (74-106); Potassium 3.7 mmol/L (3.5-5.1); Sodium 138 mmol/L (136-145); TSH 5.18 uIU/mL (0.36-3.74); Total Protein 6.7 g/dL (6.4-8.2)
[2024-09-20 09:22] LABS: Abs Immature Grans 0.03 10^3/uL (0.0-0.06); Absolute Basophil Count 0.04 10^3/uL (0.0-0.2); Absolute Eosinophil Count 0.27 10^3/uL (0.0-0.7); Absolute Lymphocyte Count 0.58 10^3/uL (1.2-3.4); Absolute Monocyte Count 0.79 10^3/uL (0.1-0.8); Absolute Neutrophil Count 6.37 10^3/uL (1.2-6.7); Basophils % 0.5 %; Eosinophils % 3.3 %; HCT 25.2 % (40.0-50.0); HGB 7.8 g/dL (13.5-17.5); Immature Grans % 0.4 %; Lymphocytes % 7.2 %; MCH 27.8 pg (27.0-33.0); MCV 90 fL (80-95); MPV 9.4 fL (8.0-11.0); Monocytes % 9.8 %; Neutrophils % 78.8 %; Platelet Count 270 10^3/uL (130-400); RBC 2.81 10^6/uL (4.36-5.78); RDW-SD 53.1 fL; WBC 8.08 10^3/uL (4.4-10.8)
[2024-09-20 09:51] LABS: ALT 41 U/L (16-63); AST 43 U/L (15-37); Albumin 3.1 g/dL (3.4-5.0); Alkaline Phosphatase 167 U/L (46-116); Anion Gap 7.3 mmol/L (3-11); BUN 27 mg/dL (7-18); Bilirubin, Total 0.3 mg/dL (0.2-1.0); CO2 27.7 mmol/L (21.0-32.0); CREATININE 1.4 mg/dL (0.70-1.30); Calcium 8.7 mg/dL (8.5-10.1); Chloride 105 mmol/L (98-107); Estimated GFR 51.45 (mL/min/1.73m2); Glucose 110 mg/dL (74-106); Potassium 3.9 mmol/L (3.5-5.1); Sodium 140 mmol/L (136-145); TSH 3.78 uIU/mL (0.36-3.74); Total Protein 6.6 g/dL (6.4-8.2)
[2024-09-20] MEDS: Normal Saline Flush 10 ML SYR IVP (10:13)
[2024-09-27] MEDS: Normal Saline Flush 10 ML SYR IVP (07:15)
[2024-09-27 07:41] LABS: Abs Immature Grans 0.01 10^3/uL (0.0-0.06); Absolute Basophil Count 0.04 10^3/uL (0.0-0.2); Absolute Eosinophil Count 0.34 10^3/uL (0.0-0.7); Absolute Lymphocyte Count 0.94 10^3/uL (1.2-3.4); Absolute Monocyte Count 0.59 10^3/uL (0.1-0.8); Absolute Neutrophil Count 4.73 10^3/uL (1.2-6.7); Basophils % 0.6 %; Eosinophils % 5.1 %; HCT 26.9 % (40.0-50.0); HGB 8.4 g/dL (13.5-17.5); Immature Grans % 0.2 %; Lymphocytes % 14.1 %; MCH 27.8 pg (27.0-33.0); MCHC 31.2 % (32.0-36.0); MCV 89 fL (80-95); MPV 9.2 fL (8.0-11.0); Monocytes % 8.9 %; Neutrophils % 71.1 %; Platelet Count 350 10^3/uL (130-400); RBC 3.02 10^6/uL (4.36-5.78); RDW 16.1 % (11.8-14.1); RDW-SD 52.5 fL; WBC 6.65 10^3/uL (4.4-10.8)
[2024-09-27 08:07] LABS: ALT 46 U/L (16-63); AST 48 U/L (15-37); Albumin 3.2 g/dL (3.4-5.0); Alkaline Phosphatase 170 U/L (46-116); Anion Gap 6.4 mmol/L (3-11); BUN 35 mg/dL (7-18); Bilirubin, Total 0.3 mg/dL (0.2-1.0); CO2 28.6 mmol/L (21.0-32.0); CREATININE 1.6 mg/dL (0.70-1.30); Chloride 104 mmol/L (98-107); Estimated GFR 43.83 (mL/min/1.73m2); FREE T4 0.87 ng/dL (0.76-1.46); Glucose 205 mg/dL (74-106); Potassium 3.8 mmol/L (3.5-5.1); Sodium 139 mmol/L (136-145); TSH 3.76 uIU/mL (0.36-3.74)
== END 2024-10-01 23:59 | disposition home or self-care (01) ==
LOC: INF 01:55
PROVIDERS: Visit Provider Nurse Practitioner
DX: C79.10 Secondary malignant neoplasm of unspecified urinary organs (principal); Z79.899 Other long term (current) drug therapy; Z45.2 Encounter for adjustment and management of vascular access device
CPT/HCPCS: 36591; 80053; 84439; 84443; 85025

== ENCOUNTER 2024-10-19 02:46 | Outpatient (RCR) | payer MEDICARE, BC, SELFPAY ==
[2024-10-11 09:29] LABS: Abs Immature Grans 0.04 10^3/uL (0.0-0.06); Absolute Basophil Count 0.06 10^3/uL (0.0-0.2); Absolute Eosinophil Count 0.18 10^3/uL (0.0-0.7); Absolute Lymphocyte Count 1.09 10^3/uL (1.2-3.4); Absolute Monocyte Count 0.61 10^3/uL (0.1-0.8); Absolute Neutrophil Count 5.94 10^3/uL (1.2-6.7); Basophils % 0.8 %; Eosinophils % 2.3 %; HCT 27.8 % (40.0-50.0); HGB 8.4 g/dL (13.5-17.5); Immature Grans % 0.5 %; Lymphocytes % 13.8 %; MCH 26.8 pg (27.0-33.0); MCHC 30.2 % (32.0-36.0); MCV 89 fL (80-95); MPV 8.9 fL (8.0-11.0); Monocytes % 7.7 %; Neutrophils % 74.9 %; Platelet Count 470 10^3/uL (130-400); RBC 3.13 10^6/uL (4.36-5.78); RDW 16.5 % (11.8-14.1); RDW-SD 53.1 fL; WBC 7.92 10^3/uL (4.4-10.8)
[2024-10-11] MEDS: Normal Saline Flush 10 ML SYR IVP (09:32)
[2024-10-11 09:39] LABS: ALT 46 U/L (16-63); AST 42 U/L (15-37); Albumin 2.8 g/dL (3.4-5.0); Alkaline Phosphatase 154 U/L (46-116); Anion Gap 8.5 mmol/L (3-11); BUN 26 mg/dL (7-18); Bilirubin, Total 0.3 mg/dL (0.2-1.0); CO2 27.5 mmol/L (21.0-32.0); CREATININE 1.5 mg/dL (0.70-1.30); Calcium 8.7 mg/dL (8.5-10.1); Chloride 104 mmol/L (98-107); Estimated GFR 47.36 (mL/min/1.73m2); FREE T4 1.06 ng/dL (0.76-1.46); Glucose 177 mg/dL (74-106); Sodium 140 mmol/L (136-145); TSH 3.01 uIU/mL (0.36-3.74); Total Protein 7.2 g/dL (6.4-8.2)
[2024-10-18 11:16] LABS: Abs Immature Grans 0.03 10^3/uL (0.0-0.06); Absolute Basophil Count 0.05 10^3/uL (0.0-0.2); Absolute Eosinophil Count 0.16 10^3/uL (0.0-0.7); Absolute Lymphocyte Count 0.99 10^3/uL (1.2-3.4); Absolute Monocyte Count 0.87 10^3/uL (0.1-0.8); Absolute Neutrophil Count 4.93 10^3/uL (1.2-6.7); Basophils % 0.7 %; Eosinophils % 2.3 %; HCT 25.4 % (40.0-50.0); HGB 7.8 g/dL (13.5-17.5); Immature Grans % 0.4 %; Lymphocytes % 14.1 %; MCH 27.1 pg (27.0-33.0); MCHC 30.7 % (32.0-36.0); MCV 88 fL (80-95); MPV 8.7 fL (8.0-11.0); Monocytes % 12.4 %; Neutrophils % 70.1 %; Platelet Count 398 10^3/uL (130-400); RBC 2.88 10^6/uL (4.36-5.78); RDW-SD 51.4 fL; WBC 7.03 10^3/uL (4.4-10.8)
[2024-10-18 11:42] LABS: ALT 45 U/L (16-63); AST 38 U/L (15-37); Albumin 2.8 g/dL (3.4-5.0); Alkaline Phosphatase 164 U/L (46-116); Anion Gap 5.3 mmol/L (3-11); BUN 28 mg/dL (7-18); Bilirubin, Total 0.2 mg/dL (0.2-1.0); CO2 30.7 mmol/L (21.0-32.0); CREATININE 1.5 mg/dL (0.70-1.30); Calcium 8.3 mg/dL (8.5-10.1); Chloride 103 mmol/L (98-107); Estimated GFR 47.36 (mL/min/1.73m2); FREE T4 0.87 ng/dL (0.76-1.46); Glucose 143 mg/dL (74-106); Potassium 3.9 mmol/L (3.5-5.1); Sodium 139 mmol/L (136-145); TSH 3.38 uIU/mL (0.36-3.74); Total Protein 6.6 g/dL (6.4-8.2)
[2024-10-18] MEDS: Normal Saline Flush 10 ML SYR IVP ×2 (11:58→14:12)
[2024-10-18 14:50] LABS: Ferritin 12 ng/mL (26-388)
[2024-10-18 15:16] LABS: Iron 21 ug/dL (65-175); Total Iron Binding Capacity 368 ug/dL (250-450); Transferrin Sat 6 % (20-55)
[2024-10-19] MEDS: Normal Saline Flush 10 ML SYR IVP (08:00)
[2024-10-19 08:09] VITALS: BP 130/76; PULSE 69; RESP 18; TEMP 36.7; O2SAT 98
[2024-10-19 08:25] VITALS: BP 147/69; PULSE 67; RESP 18; TEMP 36.6; O2SAT 98
[2024-10-19 08:40] VITALS: BP 130/77; PULSE 69; RESP 18; TEMP 36.5; O2SAT 99
[2024-10-19 09:10] VITALS: BP 121/79; PULSE 67; RESP 18; TEMP 36.5; O2SAT 99
[2024-10-19 10:07] VITALS: BP 148/79; PULSE 68; RESP 20; TEMP 36.4; O2SAT 97
== END 2024-10-31 23:59 | disposition home or self-care (01) ==
LOC: INF 02:46
PROVIDERS: Visit Provider Nurse Practitioner
DX: C79.10 Secondary malignant neoplasm of unspecified urinary organs (principal); Z79.899 Other long term (current) drug therapy
CPT/HCPCS: 36430; 36591; 80053; 86850; 86900; 86901; 86920; 96523; 82728; 83540; 83550; 84439; 84443; 85025; P9016

== ENCOUNTER 2024-11-29 04:16 | Outpatient (RCR) | payer MEDICARE, BC, SELFPAY ==
[2024-11-01 09:08] LABS: Abs Immature Grans 0.02 10^3/uL (0.0-0.06); HCT 28.1 % (40.0-50.0); HGB 8.8 g/dL (13.5-17.5); Immature Grans % 0.3 %; MCH 27.8 pg (27.0-33.0); MCHC 31.3 % (32.0-36.0); MCV 89 fL (80-95); MPV 10.0 fL (8.0-11.0); Platelet Count 263 10^3/uL (130-400); RBC 3.16 10^6/uL (4.36-5.78); RDW 17.1 % (11.8-14.1); RDW-SD 55.8 fL; WBC 7.41 10^3/uL (4.4-10.8)
[2024-11-01] MEDS: Normal Saline Flush 10 ML SYR IVP (09:26)
[2024-11-01 09:36] LABS: ALT 48 U/L (16-63); AST 46 U/L (15-37); Albumin 3.1 g/dL (3.4-5.0); Alkaline Phosphatase 173 U/L (46-116); Anion Gap 7.6 mmol/L (3-11); BUN 31 mg/dL (7-18); Bilirubin, Total 0.4 mg/dL (0.2-1.0); CO2 29.4 mmol/L (21.0-32.0); Calcium 8.5 mg/dL (8.5-10.1); Chloride 104 mmol/L (98-107); Estimated GFR 47.36 (mL/min/1.73m2); Glucose 212 mg/dL (74-106); Potassium 3.8 mmol/L (3.5-5.1); Sodium 141 mmol/L (136-145); TSH 6.34 uIU/mL (0.36-3.74); Total Protein 6.9 g/dL (6.4-8.2)
[2024-11-08] MEDS: Normal Saline Flush 10 ML SYR IVP (07:13)
[2024-11-08 07:28] LABS: Abs Immature Grans 0.03 10^3/uL (0.0-0.06); HCT 28.5 % (40.0-50.0); HGB 8.9 g/dL (13.5-17.5); Immature Grans % 0.4 %; MCH 28.1 pg (27.0-33.0); MCHC 31.2 % (32.0-36.0); MCV 90 fL (80-95); MPV 9.6 fL (8.0-11.0); Platelet Count 290 10^3/uL (130-400); RBC 3.17 10^6/uL (4.36-5.78); RDW 17.6 % (11.8-14.1); RDW-SD 56.9 fL; WBC 7.93 10^3/uL (4.4-10.8)
[2024-11-08 07:57] LABS: ALT 52 U/L (16-63); AST 51 U/L (15-37); Albumin 3.1 g/dL (3.4-5.0); Alkaline Phosphatase 176 U/L (46-116); Anion Gap 7.7 mmol/L (3-11); BUN 33 mg/dL (7-18); Bilirubin, Total 0.3 mg/dL (0.2-1.0); CO2 28.3 mmol/L (21.0-32.0); Calcium 8.5 mg/dL (8.5-10.1); Chloride 102 mmol/L (98-107); Estimated GFR 51.45 (mL/min/1.73m2); Glucose 210 mg/dL (74-106); Potassium 3.8 mmol/L (3.5-5.1); Sodium 138 mmol/L (136-145); TSH 3.48 uIU/mL (0.36-3.74); Total Protein 6.6 g/dL (6.4-8.2)
[2024-11-22] MEDS: Normal Saline Flush 10 ML SYR IVP (08:52)
[2024-11-22 09:26] LABS: Abs Immature Grans 0.03 10^3/uL (0.0-0.06); HCT 30.2 % (40.0-50.0); HGB 9.5 g/dL (13.5-17.5); Immature Grans % 0.4 %; MCH 28.7 pg (27.0-33.0); MCHC 31.5 % (32.0-36.0); MCV 91 fL (80-95); MPV 9.5 fL (8.0-11.0); Platelet Count 271 10^3/uL (130-400); RBC 3.31 10^6/uL (4.36-5.78); RDW 19.2 % (11.8-14.1); RDW-SD 63.7 fL; WBC 7.61 10^3/uL (4.4-10.8)
[2024-11-22 10:03] LABS: ALT 44 U/L (16-63); AST 43 U/L (15-37); Albumin 3.3 g/dL (3.4-5.0); Alkaline Phosphatase 163 U/L (46-116); Anion Gap 6.3 mmol/L (3-11); BUN 27 mg/dL (7-18); Bilirubin, Total 0.4 mg/dL (0.2-1.0); CO2 29.7 mmol/L (21.0-32.0); Calcium 8.8 mg/dL (8.5-10.1); Chloride 103 mmol/L (98-107); Estimated GFR 61.90 (mL/min/1.73m2); Glucose 137 mg/dL (74-106); Potassium 3.7 mmol/L (3.5-5.1); Sodium 139 mmol/L (136-145); TSH 3.11 uIU/mL (0.36-3.74); Total Protein 6.9 g/dL (6.4-8.2)
[2024-11-29 07:09] LABS: Abs Immature Grans 0.02 10^3/uL (0.0-0.06); HCT 30.4 % (40.0-50.0); HGB 9.7 g/dL (13.5-17.5); Immature Grans % 0.3 %; MCH 29.0 pg (27.0-33.0); MCHC 31.9 % (32.0-36.0); MCV 91 fL (80-95); MPV 9.2 fL (8.0-11.0); Platelet Count 240 10^3/uL (130-400); RBC 3.34 10^6/uL (4.36-5.78); RDW 18.7 % (11.8-14.1); RDW-SD 62.0 fL; WBC 7.55 10^3/uL (4.4-10.8)
[2024-11-29] MEDS: Normal Saline Flush 10 ML SYR IVP (07:14)
[2024-11-29 07:34] LABS: ALT 43 U/L (16-63); AST 38 U/L (15-37); Albumin 3.3 g/dL (3.4-5.0); Alkaline Phosphatase 159 U/L (46-116); Anion Gap 6.7 mmol/L (3-11); BUN 26 mg/dL (7-18); Bilirubin, Total 0.5 mg/dL (0.2-1.0); CO2 29.3 mmol/L (21.0-32.0); Calcium 8.8 mg/dL (8.5-10.1); Chloride 103 mmol/L (98-107); Estimated GFR 56.23 (mL/min/1.73m2); Glucose 198 mg/dL (74-106); Potassium 3.9 mmol/L (3.5-5.1); Sodium 139 mmol/L (136-145); TSH 3.22 uIU/mL (0.36-3.74); Total Protein 6.6 g/dL (6.4-8.2)
== END 2024-12-01 23:59 | disposition home or self-care (01) ==
LOC: INF 04:16
PROVIDERS: Visit Provider Nurse Practitioner
DX: C79.10 Secondary malignant neoplasm of unspecified urinary organs (principal); R94.6 Abnormal results of thyroid function studies; Z79.899 Other long term (current) drug therapy; Z45.2 Encounter for adjustment and management of vascular access device
CPT/HCPCS: 36591; 80053; 84439; 84443; 85025

== ENCOUNTER 2024-12-20 01:45 | Outpatient (RCR) | payer MEDICARE, BC, SELFPAY ==
[2024-12-13 09:01] LABS: Abs Immature Grans 0.03 10^3/uL (0.0-0.06); HCT 31.6 % (40.0-50.0); HGB 10.2 g/dL (13.5-17.5); Immature Grans % 0.4 %; MCH 29.4 pg (27.0-33.0); MCHC 32.3 % (32.0-36.0); MCV 91 fL (80-95); MPV 9.7 fL (8.0-11.0); Platelet Count 278 10^3/uL (130-400); RBC 3.47 10^6/uL (4.36-5.78); RDW 18.6 % (11.8-14.1); RDW-SD 61.6 fL; WBC 8.03 10^3/uL (4.4-10.8)
[2024-12-13 09:36] LABS: ALT 43 U/L (16-63); AST 40 U/L (15-37); Albumin 3.4 g/dL (3.4-5.0); Alkaline Phosphatase 164 U/L (46-116); Anion Gap 4.8 mmol/L (3-11); BUN 29 mg/dL (7-18); Bilirubin, Total 0.6 mg/dL (0.2-1.0); CO2 29.2 mmol/L (21.0-32.0); Calcium 8.7 mg/dL (8.5-10.1); Chloride 104 mmol/L (98-107); Estimated GFR 47.36 (mL/min/1.73m2); Glucose 180 mg/dL (74-106); Potassium 3.9 mmol/L (3.5-5.1); Sodium 138 mmol/L (136-145); TSH 2.64 uIU/mL (0.36-3.74); Total Protein 6.9 g/dL (6.4-8.2)
[2024-12-13] MEDS: Normal Saline Flush 10 ML SYR IVP (10:15)
[2024-12-20] MEDS: Normal Saline Flush 10 ML SYR IVP (07:37)
[2024-12-20 07:40] LABS: Abs Immature Grans 0.03 10^3/uL (0.0-0.06); HCT 31.0 % (40.0-50.0); HGB 10.0 g/dL (13.5-17.5); Immature Grans % 0.4 %; MCH 29.6 pg (27.0-33.0); MCHC 32.3 % (32.0-36.0); MCV 92 fL (80-95); MPV 9.2 fL (8.0-11.0); Platelet Count 243 10^3/uL (130-400); RBC 3.38 10^6/uL (4.36-5.78); RDW 18.0 % (11.8-14.1); RDW-SD 60.6 fL; WBC 7.32 10^3/uL (4.4-10.8)
[2024-12-20 08:03] LABS: ALT 57 U/L (16-63); AST 46 U/L (15-37); Albumin 3.3 g/dL (3.4-5.0); Alkaline Phosphatase 163 U/L (46-116); Anion Gap 7.7 mmol/L (3-11); BUN 25 mg/dL (7-18); Bilirubin, Total 0.4 mg/dL (0.2-1.0); CO2 28.3 mmol/L (21.0-32.0); Calcium 8.6 mg/dL (8.5-10.1); Chloride 103 mmol/L (98-107); Estimated GFR 56.23 (mL/min/1.73m2); Glucose 183 mg/dL (74-106); Potassium 4.2 mmol/L (3.5-5.1); Sodium 139 mmol/L (136-145); TSH 3.25 uIU/mL (0.36-3.74); Total Protein 6.6 g/dL (6.4-8.2)
== END 2025-01-01 23:59 | disposition home or self-care (01) ==
LOC: INF 01:45
PROVIDERS: Visit Provider Nurse Practitioner
DX: C79.10 Secondary malignant neoplasm of unspecified urinary organs (principal); R94.6 Abnormal results of thyroid function studies; Z79.899 Other long term (current) drug therapy; Z45.2 Encounter for adjustment and management of vascular access device
CPT/HCPCS: 36591; 80053; 84439; 84443; 85025

== ENCOUNTER 2025-01-31 02:32 | Outpatient (RCR) | payer MEDICARE, BC, SELFPAY ==
[2025-01-03] MEDS: Normal Saline Flush 10 ML SYR IVP (08:46)
[2025-01-03 08:48] LABS: Abs Immature Grans 0.01 10^3/uL (0.0-0.06); HCT 31.8 % (40.0-50.0); HGB 10.4 g/dL (13.5-17.5); Immature Grans % 0.1 %; MCH 30.4 pg (27.0-33.0); MCHC 32.7 % (32.0-36.0); MCV 93 fL (80-95); MPV 9.6 fL (8.0-11.0); Platelet Count 279 10^3/uL (130-400); RBC 3.42 10^6/uL (4.36-5.78); RDW 17.7 % (11.8-14.1); RDW-SD 61.4 fL; WBC 7.42 10^3/uL (4.4-10.8)
[2025-01-03 09:18] LABS: ALT 49 U/L (16-63); AST 40 U/L (15-37); Albumin 3.4 g/dL (3.4-5.0); Alkaline Phosphatase 177 U/L (46-116); Anion Gap 6.7 mmol/L (3-11); BUN 27 mg/dL (7-18); Bilirubin, Total 0.4 mg/dL (0.2-1.0); CO2 29.3 mmol/L (21.0-32.0); Calcium 9.1 mg/dL (8.5-10.1); Chloride 104 mmol/L (98-107); Estimated GFR 47.36 (mL/min/1.73m2); Glucose 154 mg/dL (74-106); Potassium 3.8 mmol/L (3.5-5.1); Sodium 140 mmol/L (136-145); TSH 2.94 uIU/mL (0.36-3.74); Total Protein 6.8 g/dL (6.4-8.2)
[2025-01-10] MEDS: Normal Saline Flush 10 ML SYR IVP (07:44)
[2025-01-10 08:36] LABS: Abs Immature Grans 0.02 10^3/uL (0.0-0.06); HCT 32.1 % (40.0-50.0); HGB 10.2 g/dL (13.5-17.5); Immature Grans % 0.3 %; MCH 29.5 pg (27.0-33.0); MCHC 31.8 % (32.0-36.0); MCV 93 fL (80-95); MPV 9.9 fL (8.0-11.0); Platelet Count 270 10^3/uL (130-400); RBC 3.46 10^6/uL (4.36-5.78); RDW 17.4 % (11.8-14.1); RDW-SD 59.0 fL; WBC 6.71 10^3/uL (4.4-10.8)
[2025-01-10 09:01] LABS: ALT 49 U/L (16-63); AST 43 U/L (15-37); Albumin 3.4 g/dL (3.4-5.0); Alkaline Phosphatase 165 U/L (46-116); Anion Gap 8.1 mmol/L (3-11); BUN 33 mg/dL (7-18); Bilirubin, Total 0.4 mg/dL (0.2-1.0); CO2 29.9 mmol/L (21.0-32.0); Calcium 8.9 mg/dL (8.5-10.1); Chloride 102 mmol/L (98-107); Estimated GFR 56.23 (mL/min/1.73m2); Glucose 191 mg/dL (74-106); Potassium 3.8 mmol/L (3.5-5.1); Sodium 140 mmol/L (136-145); TSH 3.33 uIU/mL (0.36-3.74); Total Protein 6.9 g/dL (6.4-8.2)
[2025-01-24] MEDS: Normal Saline Flush 10 ML SYR IVP (09:03)
[2025-01-24 09:15] LABS: Abs Immature Grans 0.03 10^3/uL (0.0-0.06); HCT 31.3 % (40.0-50.0); HGB 10.3 g/dL (13.5-17.5); Immature Grans % 0.4 %; MCH 30.6 pg (27.0-33.0); MCHC 32.9 % (32.0-36.0); MCV 93 fL (80-95); MPV 9.3 fL (8.0-11.0); Platelet Count 256 10^3/uL (130-400); RBC 3.37 10^6/uL (4.36-5.78); RDW 16.5 % (11.8-14.1); RDW-SD 56.4 fL; WBC 7.84 10^3/uL (4.4-10.8)
[2025-01-24 11:15] LABS: ALT 48 U/L (16-63); AST 44 U/L (15-37); Albumin 3.5 g/dL (3.4-5.0); Alkaline Phosphatase 168 U/L (46-116); Anion Gap 8.8 mmol/L (3-11); BUN 35 mg/dL (7-18); Bilirubin, Total 0.4 mg/dL (0.2-1.0); CO2 28.2 mmol/L (21.0-32.0); Calcium 8.8 mg/dL (8.5-10.1); Chloride 103 mmol/L (98-107); Estimated GFR 51.45 (mL/min/1.73m2); Glucose 144 mg/dL (74-106); Potassium 4.0 mmol/L (3.5-5.1); Sodium 140 mmol/L (136-145); TSH 2.73 uIU/mL (0.36-3.74); Total Protein 7.1 g/dL (6.4-8.2)
[2025-01-31] MEDS: Normal Saline Flush 10 ML SYR IVP (07:59)
[2025-01-31 08:35] LABS: Abs Immature Grans 0.04 10^3/uL (0.0-0.06); HCT 31.9 % (40.0-50.0); HGB 10.3 g/dL (13.5-17.5); Immature Grans % 0.5 %; MCH 30.1 pg (27.0-33.0); MCHC 32.3 % (32.0-36.0); MCV 93 fL (80-95); MPV 9.4 fL (8.0-11.0); Platelet Count 275 10^3/uL (130-400); RBC 3.42 10^6/uL (4.36-5.78); RDW 16.0 % (11.8-14.1); RDW-SD 54.4 fL; WBC 8.04 10^3/uL (4.4-10.8)
[2025-01-31 09:00] LABS: ALT 54 U/L (16-63); AST 47 U/L (15-37); Albumin 3.5 g/dL (3.4-5.0); Alkaline Phosphatase 175 U/L (46-116); Anion Gap 8.4 mmol/L (3-11); BUN 37 mg/dL (7-18); Bilirubin, Total 0.4 mg/dL (0.2-1.0); CO2 27.6 mmol/L (21.0-32.0); Calcium 8.6 mg/dL (8.5-10.1); Chloride 105 mmol/L (98-107); Estimated GFR 61.90 (mL/min/1.73m2); Glucose 138 mg/dL (74-106); Potassium 3.7 mmol/L (3.5-5.1); Sodium 141 mmol/L (136-145); TSH 3.50 uIU/mL (0.36-3.74); Total Protein 7.1 g/dL (6.4-8.2)
== END 2025-01-31 23:59 | disposition home or self-care (01) ==
LOC: INF 02:32
PROVIDERS: Visit Provider Nurse Practitioner
DX: C79.10 Secondary malignant neoplasm of unspecified urinary organs (principal); R94.6 Abnormal results of thyroid function studies; Z79.899 Other long term (current) drug therapy
CPT/HCPCS: 36591; 80053; 84439; 84443; 85025

== ENCOUNTER 2025-02-21 00:30 | Outpatient (RCR) | payer MEDICARE, BC, SELFPAY ==
[2025-02-14 08:49] LABS: Abs Immature Grans 0.03 10^3/uL (0.0-0.06); HCT 30.7 % (40.0-50.0); HGB 10.0 g/dL (13.5-17.5); Immature Grans % 0.4 %; MCH 30.5 pg (27.0-33.0); MCHC 32.6 % (32.0-36.0); MCV 94 fL (80-95); MPV 9.4 fL (8.0-11.0); Platelet Count 263 10^3/uL (130-400); RBC 3.28 10^6/uL (4.36-5.78); RDW 15.1 % (11.8-14.1); RDW-SD 51.7 fL; WBC 7.40 10^3/uL (4.4-10.8)
[2025-02-14 09:15] LABS: ALT 42 U/L (16-63); AST 39 U/L (15-37); Albumin 3.2 g/dL (3.4-5.0); Alkaline Phosphatase 168 U/L (46-116); Anion Gap 9.6 mmol/L (3-11); BUN 28 mg/dL (7-18); Bilirubin, Total 0.3 mg/dL (0.2-1.0); CO2 29.4 mmol/L (21.0-32.0); Calcium 8.5 mg/dL (8.5-10.1); Chloride 101 mmol/L (98-107); Glucose 144 mg/dL (74-106); Potassium 3.6 mmol/L (3.5-5.1); Sodium 140 mmol/L (136-145); TSH 3.65 uIU/mL (0.36-3.74); Total Protein 6.7 g/dL (6.4-8.2)
[2025-02-14] MEDS: Normal Saline Flush 10 ML SYR IVP (09:52)
[2025-02-21 07:45] LABS: Abs Immature Grans 0.05 10^3/uL (0.0-0.06); HCT 31.4 % (40.0-50.0); HGB 10.3 g/dL (13.5-17.5); Immature Grans % 0.6 %; MCH 30.6 pg (27.0-33.0); MCHC 32.8 % (32.0-36.0); MCV 93 fL (80-95); MPV 9.1 fL (8.0-11.0); Platelet Count 280 10^3/uL (130-400); RBC 3.37 10^6/uL (4.36-5.78); RDW 14.7 % (11.8-14.1); RDW-SD 48.9 fL; WBC 9.03 10^3/uL (4.4-10.8)
[2025-02-21 08:13] LABS: ALT 49 U/L (16-63); AST 40 U/L (15-37); Albumin 3.2 g/dL (3.4-5.0); Alkaline Phosphatase 172 U/L (46-116); Anion Gap 6.5 mmol/L (3-11); BUN 32 mg/dL (7-18); Bilirubin, Total 0.4 mg/dL (0.2-1.0); CO2 28.5 mmol/L (21.0-32.0); Calcium 8.3 mg/dL (8.5-10.1); Chloride 101 mmol/L (98-107); Glucose 195 mg/dL (74-106); Iron 99 ug/dL (65-175); Potassium 3.8 mmol/L (3.5-5.1); Sodium 136 mmol/L (136-145); TSH 4.32 uIU/mL (0.36-3.74); Total Iron Binding Capacity 350 ug/dL (250-450); Total Protein 6.9 g/dL (6.4-8.2); Transferrin Sat 28 % (20-55)
[2025-02-21] MEDS: Normal Saline Flush 10 ML SYR IVP (08:14)
[2025-02-21 08:37] LABS: Ferritin 24 ng/mL (26-388)
== END 2025-03-03 23:59 | disposition home or self-care (01) ==
LOC: INF 00:30
PROVIDERS: Visit Provider Nurse Practitioner
DX: C79.10 Secondary malignant neoplasm of unspecified urinary organs (principal); R94.6 Abnormal results of thyroid function studies; Z79.899 Other long term (current) drug therapy; Z45.2 Encounter for adjustment and management of vascular access device
CPT/HCPCS: 36591; 80053; 82728; 83540; 83550; 84439; 84443; 85025

== ENCOUNTER 2025-03-28 01:53 | Outpatient (RCR) | payer MEDICARE, BC, SELFPAY ==
[2025-03-07 09:11] LABS: Abs Immature Grans 0.03 10^3/uL (0.0-0.06); HCT 31.7 % (40.0-50.0); HGB 10.6 g/dL (13.5-17.5); Immature Grans % 0.3 %; MCH 31.6 pg (27.0-33.0); MCHC 33.4 % (32.0-36.0); MCV 95 fL (80-95); MPV 9.1 fL (8.0-11.0); Platelet Count 277 10^3/uL (130-400); RBC 3.35 10^6/uL (4.36-5.78); RDW 14.4 % (11.8-14.1); RDW-SD 49.0 fL; WBC 10.54 10^3/uL (4.4-10.8)
[2025-03-07] MEDS: Normal Saline Flush 10 ML SYR IVP (09:36)
[2025-03-07 09:46] LABS: ALT 52 U/L (16-63); AST 42 U/L (15-37); Albumin 3.2 g/dL (3.4-5.0); Alkaline Phosphatase 175 U/L (46-116); Anion Gap 7.1 mmol/L (3-11); BUN 32 mg/dL (7-18); Bilirubin, Total 0.4 mg/dL (0.2-1.0); CO2 29.9 mmol/L (21.0-32.0); Calcium 8.5 mg/dL (8.5-10.1); Chloride 103 mmol/L (98-107); Estimated GFR 51.45 (mL/min/1.73m2); Glucose 79 mg/dL (74-106); Potassium 4.0 mmol/L (3.5-5.1); Sodium 140 mmol/L (136-145); TSH 2.59 uIU/mL (0.36-3.74); Total Protein 7.0 g/dL (6.4-8.2)
[2025-03-14] MEDS: Normal Saline Flush 10 ML SYR IVP (07:39)
[2025-03-14 08:13] LABS: Abs Immature Grans 0.03 10^3/uL (0.0-0.06); HCT 31.4 % (40.0-50.0); HGB 10.3 g/dL (13.5-17.5); Immature Grans % 0.4 %; MCH 31.4 pg (27.0-33.0); MCHC 32.8 % (32.0-36.0); MCV 96 fL (80-95); MPV 9.7 fL (8.0-11.0); Platelet Count 278 10^3/uL (130-400); RBC 3.28 10^6/uL (4.36-5.78); RDW 14.2 % (11.8-14.1); RDW-SD 49.7 fL; WBC 7.47 10^3/uL (4.4-10.8)
[2025-03-14 08:35] LABS: ALT 45 U/L (16-63); AST 39 U/L (15-37); Albumin 3.2 g/dL (3.4-5.0); Alkaline Phosphatase 174 U/L (46-116); Anion Gap 7.2 mmol/L (3-11); BUN 34 mg/dL (7-18); Bilirubin, Total 0.4 mg/dL (0.2-1.0); CO2 28.8 mmol/L (21.0-32.0); Calcium 8.1 mg/dL (8.5-10.1); Chloride 102 mmol/L (98-107); Estimated GFR 56.23 (mL/min/1.73m2); Glucose 197 mg/dL (74-106); Potassium 3.6 mmol/L (3.5-5.1); Sodium 138 mmol/L (136-145); TSH 2.54 uIU/mL (0.36-3.74); Total Protein 6.9 g/dL (6.4-8.2)
[2025-03-28] MEDS: Normal Saline Flush 10 ML SYR IVP (10:11)
[2025-03-28 10:25] LABS: Abs Immature Grans 0.03 10^3/uL (0.0-0.06); HCT 30.9 % (40.0-50.0); HGB 10.3 g/dL (13.5-17.5); Immature Grans % 0.4 %; MCH 31.8 pg (27.0-33.0); MCHC 33.3 % (32.0-36.0); MCV 95 fL (80-95); MPV 9.5 fL (8.0-11.0); Platelet Count 250 10^3/uL (130-400); RBC 3.24 10^6/uL (4.36-5.78); RDW 14.2 % (11.8-14.1); RDW-SD 49.9 fL; WBC 8.27 10^3/uL (4.4-10.8)
[2025-03-28 10:43] LABS: ALT 37 U/L (10-49); AST 40 U/L (<34); Albumin 4.1 g/dL (3.4-5.0); Alkaline Phosphatase 165 U/L (46-116); Anion Gap 7.9 mmol/L (3-11); BUN 39 mg/dL (9-23); Bilirubin, Total 0.60 mg/dL (0.2-1.2); CO2 28.1 mmol/L (20.0-31.0); Calcium 8.4 mg/dL (8.3-10.6); Chloride 103 mmol/L (98-107); Glucose 143 mg/dL (74-106); Potassium 3.8 mmol/L (3.5-5.1); Sodium 139 mmol/L (136-145); Total Protein 6.5 g/dL (5.7-8.2)
[2025-03-28 10:47] LABS: TSH 2.40 uIU/mL (0.55-4.78)
== END 2025-04-02 23:59 | disposition home or self-care (01) ==
LOC: INF 01:53
PROVIDERS: Visit Provider Nurse Practitioner
DX: C79.10 Secondary malignant neoplasm of unspecified urinary organs (principal); Z79.899 Other long term (current) drug therapy; Z45.2 Encounter for adjustment and management of vascular access device
CPT/HCPCS: 36591; 80053; 84439; 84443; 85025

== ENCOUNTER 2025-04-25 00:58 | Outpatient (RCR) | payer MEDICARE, BC, SELFPAY ==
[2025-04-04] MEDS: Normal Saline Flush 10 ML SYR IVP (07:59)
[2025-04-04 08:19] LABS: Abs Immature Grans 0.02 10^3/uL (0.0-0.06); HCT 32.0 % (40.0-50.0); HGB 10.5 g/dL (13.5-17.5); Immature Grans % 0.3 %; MCH 31.6 pg (27.0-33.0); MCHC 32.8 % (32.0-36.0); MCV 96 fL (80-95); MPV 9.6 fL (8.0-11.0); Platelet Count 273 10^3/uL (130-400); RBC 3.32 10^6/uL (4.36-5.78); RDW 14.1 % (11.8-14.1); RDW-SD 50.3 fL; WBC 7.00 10^3/uL (4.4-10.8)
[2025-04-04 08:44] LABS: ALT 42 U/L (10-49); AST 43 U/L (<34); Albumin 4.0 g/dL (3.2-5.0); Alkaline Phosphatase 171 U/L (46-116); Anion Gap 8.8 mmol/L (3-11); BUN 30 mg/dL (9-23); Bilirubin, Total 0.50 mg/dL (0.2-1.2); CO2 28.2 mmol/L (20.0-31.0); Calcium 8.8 mg/dL (8.3-10.6); Chloride 104 mmol/L (98-107); Glucose 148 mg/dL (74-106); Potassium 3.7 mmol/L (3.5-5.1); Sodium 141 mmol/L (136-145); Total Protein 6.8 g/dL (5.7-8.2)
[2025-04-04 08:45] LABS: TSH 2.90 uIU/mL (0.55-4.78)
[2025-04-18 08:44] LABS: Abs Immature Grans 0.02 10^3/uL (0.0-0.06); HCT 31.2 % (40.0-50.0); HGB 10.1 g/dL (13.5-17.5); Immature Grans % 0.3 %; MCH 31.4 pg (27.0-33.0); MCHC 32.4 % (32.0-36.0); MCV 97 fL (80-95); MPV 9.6 fL (8.0-11.0); Platelet Count 248 10^3/uL (130-400); RBC 3.22 10^6/uL (4.36-5.78); RDW 14.2 % (11.8-14.1); RDW-SD 50.2 fL; WBC 7.30 10^3/uL (4.4-10.8)
[2025-04-18 09:11] LABS: TSH 2.58 uIU/mL (0.55-4.78)
[2025-04-18 09:12] LABS: ALT 38 U/L (10-49); AST 41 U/L (<34); Albumin 3.9 g/dL (3.2-5.0); Alkaline Phosphatase 154 U/L (46-116); Anion Gap 8.8 mmol/L (3-11); BUN 34 mg/dL (9-23); Bilirubin, Total 0.5 mg/dL (0.2-1.2); CO2 27.2 mmol/L (20.0-31.0); Calcium 8.5 mg/dL (8.3-10.6); Chloride 105 mmol/L (98-107); Glucose 177 mg/dL (74-106); Potassium 3.9 mmol/L (3.5-5.1); Sodium 141 mmol/L (136-145); Total Protein 6.3 g/dL (5.7-8.2)
[2025-04-18] MEDS: Normal Saline Flush 10 ML SYR IVP (11:24)
[2025-04-25 07:53] LABS: Abs Immature Grans 0.03 10^3/uL (0.0-0.06); HCT 32.6 % (40.0-50.0); HGB 10.7 g/dL (13.5-17.5); Immature Grans % 0.4 %; MCH 31.6 pg (27.0-33.0); MCHC 32.8 % (32.0-36.0); MCV 96 fL (80-95); MPV 9.3 fL (8.0-11.0); Platelet Count 266 10^3/uL (130-400); RBC 3.39 10^6/uL (4.36-5.78); RDW 13.7 % (11.8-14.1); RDW-SD 48.9 fL; WBC 8.11 10^3/uL (4.4-10.8)
[2025-04-25 08:09] LABS: ALT 36 U/L (10-49); AST 38 U/L (<34); Albumin 4.1 g/dL (3.2-5.0); Alkaline Phosphatase 174 U/L (46-116); Anion Gap 7.5 mmol/L (3-11); BUN 30 mg/dL (9-23); Bilirubin, Total 0.5 mg/dL (0.2-1.2); CO2 27.5 mmol/L (20.0-31.0); Calcium 8.5 mg/dL (8.3-10.6); Chloride 106 mmol/L (98-107); Glucose 220 mg/dL (74-106); Potassium 3.7 mmol/L (3.5-5.1); Sodium 141 mmol/L (136-145); Total Protein 6.7 g/dL (5.7-8.2)
[2025-04-25 08:12] LABS: TSH 2.78 uIU/mL (0.55-4.78)
[2025-04-25] MEDS: Normal Saline Flush 10 ML SYR IVP (10:23)
== END 2025-05-03 23:59 | disposition home or self-care (01) ==
LOC: INF 00:58
PROVIDERS: Visit Provider Nurse Practitioner
DX: C79.10 Secondary malignant neoplasm of unspecified urinary organs (principal); R94.6 Abnormal results of thyroid function studies; Z79.899 Other long term (current) drug therapy; Z45.2 Encounter for adjustment and management of vascular access device
CPT/HCPCS: 36591; 80053; 84439; 84443; 85025